=== PATIENT | female | born 1945 | race Caucasian/White ===

== ENCOUNTER 2022-10-11 06:11 | Inpatient (IN) | payer MEDICARE, OTHER, SELFPAY ==
[2022-10-11] VITALS (17 sets, daily range): BP systolic 105–135; BP diastolic 49–82; PULSE 57–71; RESP 14–20; TEMP 36.5–36.8; O2SAT 90–99; BMI 38.3; BMI 37.7
--- NOTE | 2022-10-11 06:42 | CRLHL7_ITS ---
For Patients: As a result of the Century Cures Act, medical imaging exams and procedure reports are released immediately into your electronic medical record. You may view this report before your referring provider. If you have questions, please contact your health care provider. INDICATION: ABD PAIN INDICATION: Abdominal pain. TECHNIQUE: CT abdomen and pelvis acquired with IV contrast. 112 cc of Isovue 370 IV. Coronal/sagittal reconstruction images. COMPARISON: None FINDINGS: Lower chest: Calcified granulomas are present at the lung bases. Liver: Unremarkable. Spleen: Unremarkable. Pancreas: Unremarkable. Gallbladder and bile ducts: Hyperdense material is present within the lumen of the gallbladder, presumably cholelithiasis. No adjacent inflammatory changes. Suggest correlation with right upper quadrant ultrasound. The common bile duct measures up to 9 millimeters. Questionable filling defect within the distal common bile duct on coronal reconstruction images, indeterminate for choledocholithiasis. See image 35, series 4. Kidneys: Unremarkable. Adrenal glands: Unremarkable. GI tract: Unremarkable. Appendix is normal. Vascular structures: Negative. No sign of aneurysm. Lymph nodes: Unremarkable. Miscellaneous: Unremarkable. No free air or significant free fluid. Pelvic Organs: Unremarkable. Bones: Mild compression deformity present at the superior endplate of L4. See image 56, series 5. There is no suspicious bone lesion. IMPRESSION: 1. Presumed cholelithiasis, with no associated inflammatory changes. 2. Mild common bile duct dilation, with a questionable filling defect, indeterminate for a common bile duct stone. 3. Suggest correlation with LFTs and right upper quadrant ultrasound. 4. Normal caliber appendix. Dictated by Salomón Richard MD @ 10/11/2022 7:49:09 AM Please note that all CT scans at this facility use dose modulation, iterative reconstruction, and/or weight-based dosing when appropriate to reduce radiation dose to as low as reasonably achievable. Dictated by: Salomón Richard MD @ 10/11/2022 07:49:31 (Electronically Signed)
[2022-10-11 06:54] LABS: Lactate* 1.8 mmol/L (0.5-1.9)
--- NOTE | 2022-10-11 06:54 | ED_ITS ---
HPI - Abdominal Pain General Chief Complaint: Abdominal Pain <Mikhail Yeboah MD - Last Filed: 10/11/22 07:56> Stated Complaint: Abdominal pain <Mikhail Yeboah MD - Last Filed: 10/11/22 07:56> Time Seen by Provider: 10/11/22 06:20 <Mikhail Yeboah MD - Last Filed: 10/11/22 07:56> History of Present Illness HPI narrative: Pt is a 76 year old woman who awoke this morning 2 hours ago with mid abd pain. Patient has not had abd pain like this in the past. Pain is sharp but does not extend through to the back. She has not had any change in her diet. No nausea or vomiting. No fever or chills. Pain is severe. She is not able to describe and worsening or relieving factors. Pt has no chest pain, sob, diaphoresis or weakness. She has otherwise been in her usual state of health. No treatments prior to arrival. No previous abd surgeries. <Mikhail Yeboah MD - Last Filed: 10/11/22 07:56> Related Data Home Medications: Home Medications Medication Instructions Recorded Confirmed fluoxetine 20 mg capsule 20 mg PO DAILY 10/11/22 10/11/22 hydrochlorothiazide 25 mg tablet 25 mg PO DAILY 10/11/22 10/11/22 losartan 50 mg tablet 50 mg PO BID 10/11/22 10/11/22 metoprolol succinate 100 mg 100 mg PO DAILY 10/11/22 10/11/22 tablet,extended release 24 hr omeprazole 20 mg capsule,delayed 20 mg PO DAILY 10/11/22 10/11/22 release rivaroxaban 20 mg tablet (Xarelto) 20 mg PO DAILY 10/11/22 10/11/22 simvastatin 40 mg tablet 40 mg PO HS 10/11/22 10/11/22 <Mikhail Yeboah MD - Last Filed: 10/11/22 07:56> Allergies/Adverse Reactions: Allergies Allergy/AdvReac Type Severity Reaction Status Date / Time Sulfa (Sulfonamide Allergy Mild Rash Verified 10/11/22 07:44 Antibiotics) <Mikhail Yeboah MD - Last Filed: 10/11/22 07:56> Review of Systems Status of ROS Reports: 10 or more systems reviewed and unremarkable except as noted in History and below <Mikhail Yeboah MD - Last Filed: 10/11/22 07:56> [facility] Medical History: Medical History Acute deep vein thrombosis (DVT) of tibial vein of left lower extremity Cervical spondylolysis Degenerative arthritis of ankle Esophageal reflux Granulomatous lung disease Helicobacter pylori (H. pylori) Hypertension Paroxysmal SVT (supraventricular tachycardia) Venous insufficiency <Mikhail Yeboah MD - Last Filed: 10/11/22 07:56> Surgical History: Surgical History History of neck surgery History of surgery on lower extremity <Mikhail Yeboah MD - Last Filed: 10/11/22 07:56> Social History: Social History Smoking Status: Never smoker Do you use any of these nicotine containing products: None Second hand tobacco smoke exposure: No How often do you have a drink containing alcohol: never How often do you have six or more drinks on one occasion: Never AUDIT-C Alcohol total score: 0 Non-prescribed substance use: denies use <Mikhail Yeboah MD - Last Filed: 10/11/22 07:56> Exam Narrative: Exam Narrative: EXAM GENERAL: Patient appears comfortable and well. EYES: No scleral icterus. ENT: Tympanic membranes and oropharynx normal. THYROID: no thyroid nodules or thyromegaly. LYMPH: No supraclavicular or cervical lymphadenopathy. SKIN: Visible skin seen during exam normal or with benign process only. EXT: No dependent lower extremity pedal edema. HEART: Regular rate and rhythm with no murmurs, rubs, or gallops. LUNGS: Clear to auscultation bilaterally with no crackles or wheezes. ABD: Hypoactive but positive bowel sounds. Minimal pain to palpation in the midabd. No rebound. PSYCH: Good eye contact, speech is not pressured. <Mikhail Yeboah MD - Last Filed: 10/11/22 07:56> Const: Vital Signs, click to edit/add: Vital Signs - 24 hr 10/11/22 06:21 10/11/22 06:44 10/11/22 07:20 Temperature 98.2 F Pulse Rate [Right Pulse Oximeter] 71 67 Respiratory Rate 18 14 Blood Pressure [Ri ght Upper Arm] 128/82 126/67 Pulse Oximetry 99 98 97 Oxygen Delivery Me thod Room Air Room Air <Mikhail Yeboah MD - Last Filed: 10/11/22 07:56> Vital Signs, click to edit/add: Vital Signs - 24 hr 10/11/22 06:21 10/11/22 06:44 10/11/22 07:20 Temperature 98.2 F Pulse Rate [Right Pulse Oximeter] 71 67 Respiratory Rate 18 14 Blood Pressure [Ri ght Upper Arm] 128/82 126/67 Pulse Oximetry 99 98 97 Oxygen Delivery Me thod Room Air Room Air <Doris Verdugo MD - Last Filed: 10/11/22 15:15> Course Course Hospital Course: Pt seen and examined. CT abd and pelvis, cbc, cmp, amylase, lactate urina lysis ordered. <Mikhail Yeboah MD - Last Filed: 10/11/22 07:56> Reevaluation(s) Reevaluation #1: Pt feeling somewhat better. CMP, CBC, Amylase, Lactate reviewed by me are normal. She does have some evidence of possible UTI vs contamination on UA. Urine culture pending. CT of abd and pelvis shows cholelithiasis with mild common bile duct dilation. Radiology recommends Ultrasound of the gallbladder which is ordered at this time. Case signed out to oncoming ED physician at [facility]. <Mikhail Yeboah MD - Last Filed: 10/11/22 07:56> Time: 07:54 <Mikhail Yeboah MD - Last Filed: 10/11/22 07:56> Vital Signs Vital signs: Initial Vital Signs Temperature 98.2 F 10/11/22 06:21 Temperature Source Temporal Artery Scan 10/11/22 06:21 Pulse Rate 71 10/11/22 06:21 Respiratory Rate 18 10/11/22 06:21 Blood Pressure 128/82 10/11/22 06:21 Blood Pressure Mean 97 10/11/22 06:21 Blood Pressure Position Sitting 10/11/22 06:21 Pulse Oximetry 99 10/11/22 06:21 Oxygen Delivery Method 10/11/22 06:21 Vital Signs Temperature 98.2 F 10/11/22 06:21 Pulse Rate 71 10/11/22 06:21 Respiratory Rate 18 10/11/22 06:21 Blood Pressure 128/82 10/11/22 06:21 Pulse Oximetry 99 10/11/22 06:21 Oxygen Delivery Method 10/11/22 06:21 Temperature 98.2 F 10/11/22 06:21 Pulse Rate 67 10/11/22 07:20 Respiratory Rate 14 10/11/22 07:20 Blood Pressure 126/67 10/11/22 07:20 Pulse Oximetry 97 10/11/22 07:20 Oxygen Delivery Method 10/11/22 07:20 <Mikhail Yeboah MD - Last Filed: 10/11/22 07:56> Initial Vital Signs Temperature 98.2 F 10/11/22 06:21 Temperature Source Temporal Artery Scan 10/11/22 06:21 Pulse Rate 71 10/11/22 06:21 Respiratory Rate 18 10/11/22 06:21 Blood Pressure 128/82 10/11/22 06:21 Blood Pressure Mean 97 10/11/22 06:21 Blood Pressure Position Sitting 10/11/22 06:21 Pulse Oximetry 99 10/11/22 06:21 Oxygen Delivery Method 10/11/22 06:21 Vital Signs Temperature 98.2 F 10/11/22 06:21 Pulse Rate 71 10/11/22 06:21 Respiratory Rate 18 10/11/22 06:21 Blood Pressure 128/82 10/11/22 06:21 Pulse Oximetry 99 10/11/22 06:21 Oxygen Delivery Method 10/11/22 06:21 Temperature 98.2 F 10/11/22 06:21 Pulse Rate 67 10/11/22 07:20 Respiratory Rate 14 10/11/22 07:20 Blood Pressure 126/67 10/11/22 07:20 Pulse Oximetry 97 10/11/22 07:20 Oxygen Delivery Method 10/11/22 07:20 <Doris Verdugo MD - Last Filed: 10/11/22 15:15> MDM - Abdominal Pain MDM Narrative Medical decision making narrative: Patient signed out to me by Dr. Yeboah. Patient noted to be feeling somewhat improved at this time. Ultrasound results follows below. Currently awaiting surgical consultation. Laboratory values reassuring with no evidence of elevated liver function tennis white count. 1245: Patient has increasing pain associated with vomiting. No fever at this time. Patient is given Toradol 15 mg IV as well as Zofran 4 mg IV. I do speak with patient and her pain continues will give her 4 mg of IV morphine. Will also give her 1 dose of Zosyn 3.375 g as I suspect that this is cholecystitis in spite of if ultrasound that shows no pericholecystic fluid or thickened gallbladder wall. Note at this time I also learned patient is on Xarelto pancreas is normal where visualized. No peripancreatic fluid collections are seen. Common bile duct measures 10 mm. This is dilated. No common bile duct stone by ultrasound. Normal caliber abdominal aorta. No solid hepatic mass. No dilation of intrahepatic biliary radicals. No perihepatic ascites. Wall echo shadow complex in the gallbladder lumen. This is consistent with a gallbladder full of stones. The patient had a positive sonographic Suero`s sign. Right kidney measures 11.2 cm in length. There is no hydronephrosis, solid mass, or perinephric fluid collection. IMPRESSION: 1. Cholelithiasis, with a wall echo shadow complex. 2. Positive sonographic Suero sign. This raises the suspicion for cholecystitis. 3. The common bile duct is dilated. A common bile duct stone is not seen by ultrasound. 4. Surgical consultation is suggested. MRCP may be obtained to assess the common bile duct further depending on clinical suspicion. Assessment/plan 1. Cholelithiasis-patient noted to have multiple stones in the gallbladder and increased size of common bile duct but with no obvious stone on CT or ultrasound. Patient currently undergoing MRCP. Surgery has been consult it at this point. 2. Suspected cholecystitis--patient has reassuring white count and LFTs but certainly is tender in the right upper quadrant and is having colic like pain. Upon my arrival she had no discomfort but then had pain with vomiting. Toradol 15 mg IV and morphine 4 mg IV plus Zofran 4 mg IV was given and patient has no pain at this time. 3. Anticoagulated-on Xarelto for history of DVT. Last does 10/10/2022 in the morning. 4. Disposition-if MRCP is positive will need to find outside facility for transfer. If negative surgical consultation with guidance on inpatient admission with antibiotics or discharge home. Will speak to hospitalist at this time as well. <Doris Verdugo MD - Last Filed: 10/11/22 15:15> Medical Records Attestation: I reviewed the patient's medical records. <Doris Verdugo MD - Last Filed: 10/11/22 15:15> Lab Data Attestation: I reviewed the patient's lab results. <Doris Verdugo MD - Last Filed: 10/11/22 15:15> Labs: Lab Results 10/11/22 10/11/22 10/11/22 Range/Units 06:42 06:42 06:43 WBC 8.79 (4.50-11.00) K/uL RBC 4.11 (4.00-5.20) m/uL Hgb 12.6 (12.0-16.0) gm/dL Hct 38.6 (33.0-51.0) % MCV 94 (80-100) fL MCH 31 (26-34) pg MCHC 33 (32-36) gm/dL RDW Coeff of La 12.3 (11.5-15.5) % Plt Count 340 (140-440) K/uL Neut % (Auto) 71.7 (42.0-72.0) % Lymph % (Auto) 19.5 L (20-44) % [place] % (Auto) 5.8 (0.0-11.0) % Eos % (Auto) 1.6 (0.0-7.0) % Baso % (Auto) 0.6 (0.0-3.0) % Neut # (Auto) 6.31 (1.7-7.0) K/uL Lymph # (Auto) 1.70 (0.90-2.90) K/uL Marathon # (Auto) 0.50 (0.00-0.90) K/UL Eos # (Auto) 0.14 (0.00-0.50) K/uL Baso # (Auto) 0.05 (0.00-0.30) K/uL Sodium (135-149) mmol/L Potassium (3.6-5.1) mmol/L Chloride (96-114) mmol/L Carbon Dioxide (20-32) mmol/L BUN (7-30) mg/dL Creatinine (0.5-1.5) mg/dL Estimated Creat Clear Estimated GFR ml/min Glucose (60-115) mg/dL Lactate 1.8 (0.5-1.9) mmol/L Calcium (8.4-10.6) mg/dL Total Bilirubin (0.1-1.5) mg/dL AST (12-35) U/L ALT (4-35) U/L Alkaline Phosphatase (40-150) U/L Total Protein (6.0-8.3) g/dL Albumin (3.3-5.0) g/dL Amylase (18-89) U/L Urine Color Yellow (Yellow) Urine Appearance Clear (Clear) Urine pH 6.0 (5.0-8.5) Ur Specific [place] 1.025 (1.000-1.030) Urine Protein Negative (Negative) Urine Glucose (UA) Negative (Negative) Urine Ketones Negative (Negative) Urine Blood Negative (Negative) Urine Nitrite Negative (Negative) Urine Bilirubin Negative (Negative) Urine Urobilinogen 2.0 A (0.2-1.0) Ur Leukocyte Esterase 1+ A (Negative) Urine RBC 0-2 (0-2) Urine WBC 10-25 A (0-5) Ur Squamous Epith Cells Few (None-Few) Urine Bacteria Few A (None) SARS-CoV-2 (PCR) (Negative) 10/11/22 10/11/22 10/11/22 Range/Units 06:43 06:50 09:10 WBC (4.50-11.00) K/uL RBC (4.00-5.20) m/uL Hgb (12.0-16.0) gm/dL Hct (33.0-51.0) % MCV (80-100) fL MCH (26-34) pg MCHC (32-36) gm/dL RDW Coeff of La (11.5-15.5) % Plt Count (140-440) K/uL Neut % (Auto) (42.0-72.0) % Lymph % (Auto) (20-44) % Marathon % (Auto) (0.0-11.0) % Eos % (Auto) (0.0-7.0) % Baso % (Auto) (0.0-3.0) % Neut # (Auto) (1.7-7.0) K/uL Lymph # (Auto) (0.90-2.90) K/uL Marathon # (Auto) (0.00-0.90) K/UL Eos # (Auto) (0.00-0.50) K/uL Baso # (Auto) (0.00-0.30) K/uL Sodium 141 (135-149) mmol/L Potassium 3.7 (3.6-5.1) mmol/L Chloride 106 (96-114) mmol/L Carbon Dioxide 25 (20-32) mmol/L BUN 22 (7-30) mg/dL Creatinine 0.7 (0.5-1.5) mg/dL Estimated Creat Clear 42.39 Estimated GFR 89 ml/min Glucose 107 (60-115) mg/dL Lactate (0.5-1.9) mmol/L Calcium 9.0 (8.4-10.6) mg/dL Total Bilirubin 0.6 (0.1-1.5) mg/dL AST 31 (12-35) U/L ALT 20 (4-35) U/L Alkaline Phosphatase 124 (40-150) U/L Total Protein 7.4 (6.0-8.3) g/dL Albumin 4.2 (3.3-5.0) g/dL Amylase 45 (18-89) U/L Urine Color (Yellow) Urine Appearance (Clear) Urine pH (5.0-8.5) Ur Specific [place] (1.000-1.030) Urine Protein (Negative) Urine Glucose (UA) (Negative) Urine Ketones (Negative) Urine Blood (Negative) Urine Nitrite (Negative) Urine Bilirubin (Negative) Urine Urobilinogen (0.2-1.0) Ur Leukocyte Esterase (Negative) Urine RBC (0-2) Urine WBC (0-5) Ur Squamous Epith Cells (None-Few) Urine Bacteria (None) SARS-CoV-2 (PCR) Negative SARS-CoV-2 (Negative) <Mikhail Yeboah MD - Last Filed: 10/11/22 07:56> Lab Results 10/11/22 10/11/22 10/11/22 Range/Units 06:42 06:42 06:43 WBC 8.79 (4.50-11.00) K/uL RBC 4.11 (4.00-5.20) m/uL Hgb 12.6 (12.0-16.0) gm/dL Hct 38.6 (33.0-51.0) % MCV 94 (80-100) fL MCH 31 (26-34) pg MCHC 33 (32-36) gm/dL RDW Coeff of La 12.3 (11.5-15.5) % Plt Count 340 (140-440) K/uL Neut % (Auto) 71.7 (42.0-72.0) % Lymph % (Auto) 19.5 L (20-44) % Marathon % (Auto) 5.8 (0.0-11.0) % Eos % (Auto) 1.6 (0.0-7.0) % Baso % (Auto) 0.6 (0.0-3.0) % Neut # (Auto) 6.31 (1.7-7.0) K/uL Lymph # (Auto) 1.70 (0.90-2.90) K/uL Marathon # (Auto) 0.50 (0.00-0.90) K/UL Eos # (Auto) 0.14 (0.00-0.50) K/uL Baso # (Auto) 0.05 (0.00-0.30) K/uL Sodium (135-149) mmol/L Potassium (3.6-5.1) mmol/L Chloride (96-114) mmol/L Carbon Dioxide (20-32) mmol/L BUN (7-30) mg/dL Creatinine (0.5-1.5) mg/dL Estimated Creat Clear Estimated GFR ml/min Glucose (60-115) mg/dL Lactate 1.8 (0.5-1.9) mmol/L Calcium (8.4-10.6) mg/dL Total Bilirubin (0.1-1.5) mg/dL AST (12-35) U/L ALT (4-35) U/L Alkaline Phosphatase (40-150) U/L Total Protein (6.0-8.3) g/dL Albumin (3.3-5.0) g/dL Amylase (18-89) U/L Urine Color Yellow (Yellow) Urine Appearance Clear (Clear) Urine pH 6.0 (5.0-8.5) Ur Specific [place]iman 1.025 (1.000-1.030) Urine Protein Negative (Negative) Urine Glucose (UA) Negative (Negative) Urine Ketones Negative (Negative) Urine Blood Negative (Negative) Urine Nitrite Negative (Negative) Urine Bilirubin Negative (Negative) Urine Urobilinogen 2.0 A (0.2-1.0) Ur Leukocyte Esterase 1+ A (Negative) Urine RBC 0-2 (0-2) Urine WBC 10-25 A (0-5) Ur Squamous Epith Cells Few (None-Few) Urine Bacteria Few A (None) SARS-CoV-2 (PCR) (Negative) 10/11/22 10/11/22 10/11/22 Range/Units 06:43 06:50 09:10 WBC (4.50-11.00) K/uL RBC (4.00-5.20) m/uL Hgb (12.0-16.0) gm/dL Hct (33.0-51.0) % MCV (80-100) fL MCH (26-34) pg MCHC (32-36) gm/dL RDW Coeff of La (11.5-15.5) % Plt Count (140-440) K/uL Neut % (Auto) (42.0-72.0) % Lymph % (Auto) (20-44) % Marathon % (Auto) (0.0-11.0) % Eos % (Auto) (0.0-7.0) % Baso % (Auto) (0.0-3.0) % Neut # (Auto) (1.7-7.0) K/uL Lymph # (Auto) (0.90-2.90) K/uL Marathon # (Auto) (0.00-0.90) K/UL Eos # (Auto) (0.00-0.50) K/uL Baso # (Auto) (0.00-0.30) K/uL Sodium 141 (135-149) mmol/L Potassium 3.7 (3.6-5.1) mmol/L Chloride 106 (96-114) mmol/L Carbon Dioxide 25 (20-32) mmol/L BUN 22 (7-30) mg/dL Creatinine 0.7 (0.5-1.5) mg/dL Estimated Creat Clear 42.39 Estimated GFR 89 ml/min Glucose 107 (60-115) mg/dL Lactate (0.5-1.9) mmol/L Calcium 9.0 (8.4-10.6) mg/dL Total Bilirubin 0.6 (0.1-1.5) mg/dL AST 31 (12-35) U/L ALT 20 (4-35) U/L Alkaline Phosphatase 124 (40-150) U/L Total Protein 7.4 (6.0-8.3) g/dL Albumin 4.2 (3.3-5.0) g/dL Amylase 45 (18-89) U/L Urine Color (Yellow) Urine Appearance (Clear) Urine pH (5.0-8.5) Ur Specific [place] (1.000-1.030) Urine Protein (Negative) Urine Glucose (UA) (Negative) Urine Ketones (Negative) Urine Blood (Negative) Urine Nitrite (Negative) Urine Bilirubin (Negative) Urine Urobilinogen (0.2-1.0) Ur Leukocyte Esterase (Negative) Urine RBC (0-2) Urine WBC (0-5) Ur Squamous Epith Cells (None-Few) Urine Bacteria (None) SARS-CoV-2 (PCR) Negative SARS-CoV-2 (Negative) <Doris Verdugo MD - Last Filed: 10/11/22 15:15> Discharge Plan Discharge Clinical Impression: Acute UTI, Cholelithiasis <Mikhail Yeboah MD - Last Filed: 10/11/22 07:56> Prescriptions: No Action fluoxetine 20 mg capsule 20 mg PO DAILY Label Comments: TAKE 1 CAPSULE BY MOUTH IN THE MORNING hydrochlorothiazide 25 mg tablet 25 mg PO DAILY Label Comments: TAKE 1 TABLET BY MOUTH ONCE DAILY losartan 50 mg tablet 50 mg PO BID Label Comments: TAKE 1 TABLET BY MOUTH TWICE DAILY metoprolol succinate 100 mg tablet extended release 24 hr 100 mg PO DAILY Label Comments: TAKE 1 TABLET BY MOUTH ONCE DAILY omeprazole 20 mg capsule,delayed release(DR/EC) 20 mg PO DAILY Label Comments: TAKE 1 CAPSULE BY MOUTH ONCE DAILY BEFORE A MEAL simvastatin 40 mg tablet 40 mg PO HS Label Comments: TAKE 1 TABLET BY MOUTH AT BEDTIME Xarelto 20 mg tablet 20 mg PO DAILY Rx Instructions: must administer with evening meal <Mikhail Yeboah MD - Last Filed: 10/11/22 07:56> Follow Up/Referrals: Yanni Headley MD [Primary Care Provider] - <Mikhail Yeboah MD - Last Filed: 10/11/22 07:56>
[2022-10-11 06:56] LABS: Basophils Absolute Auto 0.05 K/uL (0.00-0.30); Basophils Percent Auto 0.6 % (0.0-3.0); Eosinophils Absolute Auto 0.14 K/uL (0.00-0.50); Eosinophils Percent Auto 1.6 % (0.0-7.0); Hematocrit 38.6 % (33.0-51.0); Hemoglobin* 12.6 gm/dL (12.0-16.0); Immature Granulocytes Abs Auto 0.07 K/uL (0.00-0.30); Immature Granulocytes Pct Auto 0.8 %; Lymphocytes Percent Auto 19.5 % (20-44); Mean Corpuscular HGB Conc 33 gm/dL (32-36); Mean Corpuscular Hemoglobin 31 pg (26-34); Mean Corpuscular Volume 94 fL (80-100); Monocytes Percent Auto 5.8 % (0.0-11.0); Neutrophils Absolute Auto 6.31 K/uL (1.7-7.0); Neutrophils Percent Auto 71.7 % (42.0-72.0); Platelet Count* 340 K/uL (140-440); RDW Coefficient of Variation % 12.3 % (11.5-15.5); Red Blood Count 4.11 m/uL (4.00-5.20); White Blood Count* 8.79 K/uL (4.50-11.00)
--- NOTE | 2022-10-11 07:03 | ED.NURSE ---
Report received from ESTRELLA Kerns.
[2022-10-11 07:04] LABS: Slide Review Reflex No
[2022-10-11 07:11] LABS: Appearance Urine Clear (Clear); Bilirubin Urine Negative (Negative); Blood Urine Negative (Negative); Color Urine Yellow (Yellow); Glucose Urine Negative (Negative); Ketones Urine Negative (Negative); Leukocyte Esterase Urine 1+ (Negative); Nitrite Urine Negative (Negative); Protein Urine Negative (Negative); Specific Gravity Urine 1.025 (1.000-1.030)
[2022-10-11 07:13] LABS: RBC Urine 0-2 (0-2)
[2022-10-11 07:13] LABS: Chloride* 106 mmol/L (96-114)
[2022-10-11 07:14] LABS: Bacteria Urine Few; Squamous Epithelial Cell Urine Few (None-Few)
[2022-10-11 07:14] LABS: Albumin* 4.2 g/dL (3.3-5.0); Potassium* 3.7 mmol/L (3.6-5.1); Sodium* 141 mmol/L (135-149)
[2022-10-11 07:17] LABS: Alanine Aminotransferase* 20 U/L (4-35); Alkaline Phosphatase* 124 U/L (40-150); Aspartate Amino Transferase* 31 U/L (12-35); Bilirubin Total* 0.6 mg/dL (0.1-1.5); Blood Urea Nitrogen* 22 mg/dL (7-30); Carbon Dioxide* 25 mmol/L (20-32); Creatinine* 0.7 mg/dL (0.5-1.5); Est. Creatinine Clearance* 42.39; Estimated Glomerular Filt Rate 89 ml/min; Glucose* 107 mg/dL (60-115); Total Protein* 7.4 g/dL (6.0-8.3)
[2022-10-11 07:29] LABS: Amylase* 45 U/L (18-89)
--- NOTE | 2022-10-11 07:57 | CRLHL7_ITS ---
For Patients: As a result of the Century Cures Act, medical imaging exams and procedure reports are released immediately into your electronic medical record. You may view this report before your referring provider. If you have questions, please contact your health care provider. INDICATION: ABD PAIN, ABNORMAL FINDINGS ON CTIMAGES: 49PREVIOUS:CT ABD/PELVIS IMAGES: 439 HISTORY: Abnormal CT scan. Suspected cholelithiasis. COMPARISON: CT of the abdomen and pelvis, 10/11/2022. TECHNIQUE: Ultrasound of the abdomen limited. FINDINGS: The pancreas is normal where visualized. No peripancreatic fluid collections are seen. Common bile duct measures 10 mm. This is dilated. No common bile duct stone by ultrasound. Normal caliber abdominal aorta. No solid hepatic mass. No dilation of intrahepatic biliary radicals. No perihepatic ascites. Wall echo shadow complex in the gallbladder lumen. This is consistent with a gallbladder full of stones. The patient had a positive sonographic Suero`s sign. Right kidney measures 11.2 cm in length. There is no hydronephrosis, solid mass, or perinephric fluid collection. IMPRESSION: 1. Cholelithiasis, with a wall echo shadow complex. 2. Positive sonographic Suero sign. This raises the suspicion for cholecystitis. 3. The common bile duct is dilated. A common bile duct stone is not seen by ultrasound. 4. Surgical consultation is suggested. MRCP may be obtained to assess the common bile duct further depending on clinical suspicion. Dictated by Salomón Richard MD @ 10/11/2022 9:36:08 AM Dictated by: Salomón Richard MD @ 10/11/2022 09:36:17 (Electronically Signed)
[2022-10-11 10:11] LABS: SARS PCR* Negative SARS-CoV-2 (Negative)
--- NOTE | 2022-10-11 11:36 | ED.NURSE ---
Pt up to BR independently, tolerates well. Pt updated on delay with surgeon. Call light within reach, all needs met at this time.
[2022-10-11] MEDS: KETOROLAC 15 MG/ML inj IVP (12:40)
[2022-10-11] MEDS: ONDANSETRON 2 MG/ML inj 4 MG IVP (13:05)
[2022-10-11] MEDS: MORPHINE 4 MG/ML INJ IVP ×2 (13:07→20:25)
--- NOTE | 2022-10-11 14:08 | CRLHL7_ITS ---
For Patients: As a result of the Century Cures Act, medical imaging exams and procedure reports are released immediately into your electronic medical record. You may view this report before your referring provider. If you have questions, please contact your health care provider. INDICATION: Cholelithiasis. Enlarged common bile duct. TECHNIQUE: An MRCP, including 2D, 3D and maximum intensity projection imaging, was performed. COMPARISON: Abdomen ultrasound and abdomen/pelvis CT performed earlier today. FINDINGS: The common bile duct is smoothly marginated and measures up to 10 mm in diameter. There is no obvious ductal stone. The intrahepatic ducts are normal in caliber and appear to branch and taper in a grossly normal fashion. Multiple stones are present in the gallbladder, including a stone measuring up to 3 cm in maximum diameter. The pancreatic duct is normal. Mild fatty change is noted in the liver. The liver is normal in size and shape. The spleen, pancreas, adrenal glands and kidneys are within normal limits. No bowel abnormality, lymphadenopathy or free fluid is demonstrated. IMPRESSION: 1. Cholelithiasis but no convincing evidence of choledocholithiasis, despite the common duct measured up to 10 mm in diameter. 2. Mild fatty change in the liver. Dictated by Nilo Ulloa MD @ 10/11/2022 4:15:31 PM (Electronically Signed)
[2022-10-11] MEDS: PIPERACILLIN/TAZOBACTAM 3.375 GM in 0.9 % SODIUM CHLORIDE Mini-bag 100 ML IVPB (14:21)
[2022-10-11 16:14] LABS: Lipase* 112 U/L (23-300)
--- NOTE | 2022-10-11 18:10 | ED.NURSE ---
Report given to ESTRELLA Villagomez.
--- NOTE | 2022-10-11 19:06 | P.IMHP_ITS ---
Hospitalist- H&P: HPI History of Present Illness Date Seen: 10/11/22 Chief complaint: Abdominal pain Narrative: ADMISSION HISTORY AND PHYSICAL - HOSPITALIST Chief Complaint: Acute Abdominal Pain HPI: 76-year-old with a history of hypertension, recurrent DVT, depression presents with acute onset of significant abdominal pain. She stated she woke up this morning feeling normal. She had a normal day the day before, had a normal evening meal. Soon after getting up she started to have a nose bleed. She recently started Xarelto after her 3rd lifetime DVT. She was able to sit in her recliner to get the bleeding stopped. About the same time she had the acute onset of boring abdominal pain in her mid epigastric region. It radiated into her back. She felt sweaty. She could not get on top of the pain. She felt nauseated. She called her son and he brought her to the emergency room. In the ED -normal vitals and labs -pain returned as did nausea and vomiting. Given Zofran morphine -imaging was concerning for a dilated common bile duct, 10 mm. MRCP was recommended. -MRCP showed dilated duct without stone -general surgery advised admission, hold Xarelto, planned for laparoscopic cholecystectomy I've updated the PFSH, medications and allergies in the [facility] tabs. INVESTIGATIONS: LABS/MICRO/ECG/IMAGING AFEBRILE SINCE ARRIVAL BP NORMAL PULSE NORMAL PULSE OX ON ROOM AIR LOW 90'S 104KG CBC is unremarkable. Complete metabolic panel, lipase all normal UA shows 1+ leukocyte esterase, few bacteria, some white blood cells. URINE CULTURE PENDING MRCP TODAY PRIOR TO ADMISSION 1. Cholelithiasis but no convincing evidence of choledocholithiasis, despite the common duct measured up to 10 mm in diameter. 2. Mild fatty change in the liver. REVIEW OF SYSTEMS: 12-point ROS completed with patient and negative unless otherwise stated in HPI or below. PHYSICAL EXAM: CODE STATUS: Full code CONSTITUTIONAL: Conversive, good historian. A/O. Knows setting and context. VITAL SIGNS: see record. HEENT: Normocephalic, atraumatic. PERRL, EOMI, conjunctivae pink, no scleral icterus. Ears and nose externally normal. Pharynx normal. NECK: No JVD. No carotid bruit, no thyromegaly, no adenopathy. CHEST: Clear to auscultation bilaterally HEART: S1 and S2 normal. No harsh murmurs. Edema 1+ ABDOMEN: OBESE. TENDER THROUGHOUT HER UPPER ABDOMEN. NO REBOUND. GOOD BOWEL SOUNDS. MUSCULOSKELETAL: No gross joint deformity or swelling. NEURO: Cranial nerves intact. Grossly intact. No asymmetric findings. SKIN: No rashes, petechiae, concerning changes PSYCHIATRIC: Euthymic. ADMIT TO MEDSURG: FLOOR CARE DVT: Lovenox GI: PPI, CLEARS Time spent: 70 minutes examining patient, conferring with family and patient, care staff, developing care plan [facility] Medical History (Updated 10/11/22 @ 21:55 by Ibeth Ho MD) Bereavement, uncomplicated Cervical spondylolysis Chronic anticoagulation Degenerative arthritis of ankle Dyslipidemia Esophageal reflux Granulomatous lung disease Hypertension Morbid obesity Paroxysmal SVT (supraventricular tachycardia) Recurrent deep vein thrombosis (DVT) Venous insufficiency Surgical History (Updated 10/11/22 @ 21:53 by Ibeth Ho MD) H/O lumbar discectomy History of neck surgery Status post open reduction with internal fixation (ORIF) of fracture of ankle Social History (Updated 10/11/22 @ 21:54 by Ibeth Ho MD) Narrative: 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 Three adult children. Lives alone. Nonsmoker. Nondrinker. Highest level of school completed/degree received: high school graduate Smoking Status: Never smoker Do you use any of these nicotine containing products: None Second hand tobacco smoke exposure: No How often do you have a drink containing alcohol: monthly or less Alcohol type: beer, wine and hard liquor How many standard drinks containing alcohol do you have on a typical day: 1 or 2 How often do you have six or more drinks on one occasion: Never AUDIT-C Alcohol total score: 1 Non-prescribed substance use: denies use Caffeine: Yes (coffee, 2 cups) service: No Meds Home Medications and Allergies Home Medications Medication Instructions Recorded Confirmed Type fluoxetine 20 mg capsule 20 mg PO DAILY 10/11/22 10/11/22 History hydrochlorothiazide 25 mg tablet 25 mg PO DAILY 10/11/22 10/11/22 History losartan 50 mg tablet 50 mg PO BID 10/11/22 10/11/22 History metoprolol succinate 100 mg 100 mg PO DAILY 10/11/22 10/11/22 History tablet,extended release 24 hr omeprazole 20 mg capsule,delayed 20 mg PO DAILY 10/11/22 10/11/22 History release rivaroxaban 20 mg tablet (Xarelto) 20 mg PO DAILY 10/11/22 10/11/22 History simvastatin 40 mg tablet 40 mg PO HS 10/11/22 10/11/22 History Allergies Allergy/AdvReac Type Severity Reaction Status Date / Time Sulfa (Sulfonamide Allergy Mild Rash Verified 10/11/22 07:44 Antibiotics) Exam Const: Vital Signs, click to edit/add: Vital Signs - 24 hr 10/11/22 06:21 10/11/22 06:44 10/11/22 07:20 Temperature 98.2 F Pulse Rate Pulse Rate [Left P ulse Oximeter] Pulse Rate [Right Pulse Oximeter] 71 67 Respiratory Rate 18 14 Blood Pressure Blood Pressure [Le ft Arm] Blood Pressure [Ri ght Upper Arm] 128/82 126/67 Pulse Oximetry 99 98 97 [facility] Room Air 10/11/22 10:00 10/11/22 15:41 10/11/22 16:00 Temperature Pulse Rate 68 62 Pulse Rate [Left P ulse Oximeter] Pulse Rate [Right Pulse Oximeter] 69 Respiratory Rate 16 Blood Pressure 129/72 Blood Pressure [Le ft Arm] Blood Pressure [Ri ght Upper Arm] 119/77 Pulse Oximetry 94 95 92 [facility] 10/11/22 16:30 10/11/22 16:50 10/11/22 12:00 Temperature Pulse Rate 63 65 Pulse Rate [Left P ulse Oximeter] Pulse Rate [Right Pulse Oximeter] Respiratory Rate Blood Pressure 105/52 L Blood Pressure [Le ft Arm] Blood Pressure [Ri ght Upper Arm] 118/77 Pulse Oximetry 90 91 95 [facility] 10/11/22 16:51 10/11/22 17:01 10/11/22 17:31 Temperature Pulse Rate 62 58 L 57 L Pulse Rate [Left P ulse Oximeter] Pulse Rate [Right Pulse Oximeter] Respiratory Rate Blood Pressure 114/49 L 129/65 Blood Pressure [Le ft Arm] Blood Pressure [Ri ght Upper Arm] Pulse Oximetry 91 90 91 [facility] 10/11/22 18:01 10/11/22 18:43 Temperature 97.7 F Pulse Rate 61 Pulse Rate [Left P ulse Oximeter] 61 Pulse Rate [Right Pulse Oximeter] Respiratory Rate 18 Blood Pressure 135/68 Blood Pressure [Le ft Arm] 127/62 Blood Pressure [Ri ght Upper Arm] Pulse Oximetry 92 97 Oxygen Delivery Me thod Room Air Hospitalist - H&P: Result Labs Labs: Short CBC 10/11/22 Range/Units 06:42 WBC 8.79 (4.50-11.00) K/uL Hgb 12.6 (12.0-16.0) gm/dL Hct 38.6 (33.0-51.0) % Plt Count 340 (140-440) K/uL BMP 10/11/22 06:50 Sodium 141 Potassium 3.7 Chloride 106 Carbon Dioxide 25 BUN 22 Creatinine 0.7 Glucose 107 Calcium 9.0 Liver Function 10/11/22 Range/Units 06:50 Total Bilirubin 0.6 (0.1-1.5) mg/dL AST 31 (12-35) U/L ALT 20 (4-35) U/L Alkaline Phosphatase 124 (40-150) U/L Albumin 4.2 (3.3-5.0) g/dL Urine 10/11/22 Range/Units 06:42 Urine Color Yellow (Yellow) Urine Appearance Clear (Clear) Urine pH 6.0 (5.0-8.5) Ur Specific [place] 1.025 (1.000-1.030) Urine Protein Negative (Negative) Urine Glucose (UA) Negative (Negative) Assessment and Plan Assessment and plan (1) Cholelithiasis: Problem comment: MRCP, 10/11/2022. Dilated common bile duct. No evidence of choledocholithiasis. General surgery is planning a laparoscopic cholecystectomy on 10/13. No antibiotics planned. Status post 1 dose of Zosyn in the ED. covering with Lovenox and holding Xarelto. Status: Acute (2) Chronic anticoagulation: Problem comment: Xarelto for chronic DVT. Last dose was the morning of 10/10. Covering with Lovenox. Status: Acute (3) Recurrent deep vein thrombosis (DVT): Problem comment: Three lifetime DVTs. Last was August of 2022. Recommended lifetime Xarelto. Status: Acute (4) Hypertension: Problem comment: 3 med regimen: HCTZ, Losartan, Toprol xl Status: Acute (5) Morbid obesity: Status: Acute (6) Bereavement, uncomplicated: Problem comment: just in 09/09. On prozac. Status: Acute
[2022-10-11] MEDS: 5 % DEX/0.45 SOD CHL+KCL20 mEq 1,000 ML 100 ML IV (20:29)
[2022-10-11] MEDS: LOSARTAN POTASSIUM 50 MG TABLET PO (20:34)
[2022-10-11] MEDS: PANTOPRAZOLE SODIUM 40 MG INJ IVP (20:34)
[2022-10-11] MEDS: ENOXAPARIN 40 MG/0.4 ML INJ SUBCUT (20:34)
[2022-10-11] MEDS: SIMVASTATIN 40 MG TABLET PO (20:35)
--- NOTE | 2022-10-11 23:56 | PC.NURSE ---
Nursing Care Hours: [id number] Pt this shift arrived from ED. No c/o pain upon arrival but, after drinking fluids and eating half a jello, sharp pain returned in upper epigastric region. Advised to take fluids slowly to avoid irritation. Morphine given per eMAR. Orthostatic blood pressures done per hospitalist order, pt expressed feeling light headed like I am going to faint at the end of getting a standing pressure. Hospitalist notified. IV fluids running. L AC was triggering high pressure even with interventions. New IV placed in R hand. TEDs bilat on, SB assist to bathroom. O2 saturation dropping to 85% while trying to fall asleep. No known history of sleep apnea per pt. 0.5L NC keeping saturations above 90%.
[2022-10-12] MEDS: MELATONIN 3 MG TABLET PO ×2 (00:05→23:39)
[2022-10-12 03:00] VITALS: BP 126/62; PULSE 68; RESP 18; TEMP 36.6; O2SAT 95
[2022-10-12] MEDS: 5 % DEX/0.45 SOD CHL+KCL20 mEq 1,000 ML 100 ML IV ×2 (06:54→23:40)
[2022-10-12] MEDS: OMEPRAZOLE 20 MG CAPSULE DR 40 MG PO (06:54)
[2022-10-12 07:00] VITALS: BP 132/67; PULSE 79; PULSE 82; RESP 18; TEMP 36.9; O2SAT 94
[2022-10-12 07:21] LABS: HCO3 VBG 25 mmol/L (21-28); PCO2 VBG 35 mmHG (40-50); PO2 VBG 65.7 mmHG (25-47); pH VBG 7.459 (7.32-7.43)
[2022-10-12 07:28] LABS: Hematocrit 36.8 % (33.0-51.0); Hemoglobin* 11.7 gm/dL (12.0-16.0); Mean Corpuscular HGB Conc 32 gm/dL (32-36); Mean Corpuscular Hemoglobin 30 pg (26-34); Mean Corpuscular Volume 96 fL (80-100); Platelet Count* 252 K/uL (140-440); Red Blood Count 3.85 m/uL (4.00-5.20); White Blood Count* 7.76 K/uL (4.50-11.00)
--- NOTE | 2022-10-12 07:30 | PC.NURSE ---
[id number]: Patient pleasant and cooperative. Rates pain 0-2/10 declining pain medication. Denies N/V. SBA. BS active and passing gas. Tolerating clears. 0.5 Lt NC overnight to maintain sats >90.
[2022-10-12 07:32] LABS: Slide Review Reflex No
[2022-10-12 07:41] LABS: Chloride* 108 mmol/L (96-114); Sodium* 138 mmol/L (135-149)
[2022-10-12 07:42] LABS: Potassium* 4.2 mmol/L (3.6-5.1)
[2022-10-12 07:43] LABS: Creatinine* 0.5 mg/dL (0.5-1.5); Est. Creatinine Clearance* 42.39; Estimated Glomerular Filt Rate 97 ml/min
[2022-10-12 07:44] LABS: Alkaline Phosphatase* 120 U/L (40-150); Aspartate Amino Transferase* 46 U/L (12-35); Carbon Dioxide* 22 mmol/L (20-32); Lipase* 71 U/L (23-300)
[2022-10-12 07:45] LABS: Alanine Aminotransferase* 29 U/L (4-35); Blood Urea Nitrogen* 19 mg/dL (7-30); Calcium* 8.5 mg/dL (8.4-10.6); Glucose* 118 mg/dL (60-115); Magnesium* 1.8 mg/dL (1.5-2.6)
--- NOTE | 2022-10-12 11:31 | P.GSCN_ITS ---
History of Present Illness Consult details Date Seen: 10/12/22 Consult date: 10/12/22 Narrative: 76-year-old female was admitted to the hospital with epigastric abdominal pain and I was asked by Dr. Gee to see him in consultation. Patient states that she woke up at 4 in the morning with bloody nose. And after her nose stopped bleeding, she noticed severe epigastric abdominal pain. The pain was described as sharp and persistent. When the pain was severe, it radiated to her back. Patient had not had anything like this before. She had episodes of left upper quadrant pain that was not as severe in the past. The etiology of that pain has never been discovered. Patient had nausea and dry heaving. Currently her pain is controlled with pain medication but is still present. Patient denies drinking alcohol. She occasionally takes ibuprofen for back issues, and on average takes it twice a week. Patient has a history of acid reflux and takes omeprazole daily. She has been taking that for ?awhile?. I reviewed patient's laboratory and imaging findings. Her WBC was normal at 8.7. Her liver function tests were normal. Her hemoglobin was 12.6. An abdominal CT was obtained that showed cholelithiasis with no significant inflammation surrounding the gallbladder. There was dilation of the common bile duct. An abdominal ultrasound was then obtained that showed cholelithiasis. The gallbladder wall was just below 3 mm thick and there was no pericholecystic fluid. Patient's common bile duct was measured at 10 mm in the largest dimension. Patient then underwent an MRCP that confirmed presence of stones in the gallbladder and showed dilated common bile duct with no filling defects or stones. Review of Systems Narrative: General: no fevers HENT: no problems swallowing CV: no shortness of breath Resp: no cough GI: See above Skin: no new rashes Musculoskeletal: Patient does have history of chronic back pain and takes ibuprofen for it. Neuro: no muscle weakness PFSH PFS Medical History (Updated 10/11/22 @ 21:55 by Ibeth Ho MD) Bereavement, uncomplicated Cervical spondylolysis Chronic anticoagulation Degenerative arthritis of ankle Dyslipidemia Esophageal reflux Granulomatous lung disease Hypertension Morbid obesity Paroxysmal SVT (supraventricular tachycardia) Recurrent deep vein thrombosis (DVT) Venous insufficiency Surgical History (Updated 10/12/22 @ 11:37 by Paulina Queen MD) H/O lumbar discectomy H/O: hysterectomy History of neck surgery Status post open reduction with internal fixation (ORIF) of fracture of ankle Social History (Updated 10/11/22 @ 21:54 by Ibeth Ho MD) Narrative: 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 Three adult children. Lives alone. Nonsmoker. Nondrinker. Highest level of school completed/degree received: high school graduate Smoking Status: Never smoker Do you use any of these nicotine containing products: None Second hand tobacco smoke exposure: No How often do you have a drink containing alcohol: monthly or less Alcohol type: beer, wine and hard liquor How many standard drinks containing alcohol do you have on a typical day: 1 or 2 How often do you have six or more drinks on one occasion: Never AUDIT-C Alcohol total score: 1 Non-prescribed substance use: denies use Caffeine: Yes (coffee, 2 cups) service: No Meds Home Medications and Allergies Home Medications Medication Instructions Recorded Confirmed Type fluoxetine 20 mg capsule 20 mg PO DAILY 10/11/22 10/11/22 History hydrochlorothiazide 25 mg tablet 25 mg PO DAILY 10/11/22 10/11/22 History losartan 50 mg tablet 50 mg PO BID 10/11/22 10/11/22 History metoprolol succinate 100 mg 100 mg PO DAILY 10/11/22 10/11/22 History tablet,extended release 24 hr omeprazole 20 mg capsule,delayed 20 mg PO DAILY 10/11/22 10/11/22 History release rivaroxaban 20 mg tablet (Xarelto) 20 mg PO DAILY 10/11/22 10/11/22 History simvastatin 40 mg tablet 40 mg PO HS 10/11/22 10/11/22 History Allergies Allergy/AdvReac Type Severity Reaction Status Date / Time Sulfa (Sulfonamide Allergy Mild Rash Verified 10/11/22 07:44 Antibiotics) Exam Narrative: Exam Narrative: General appearance: Alert, cooperative, and in no distress Pulmonary: Chest symmetric, lungs clear bilaterally Cardiovascular Heart: Regular rate and rhythm, S1, S2, no murmurs/rubs/gallops Gastrointestinal Abdominal: soft, not distended, tender to palpation in epigastrium and mid right abdomen. Negative Suero sign. Patient also has a small umbilical hernia. Skin: Normal skin color, texture, and turgor. No rashes or lesions. Psychiatric: Alert, cooperative, normal affect. Const: Vital Signs, click to edit/add: Vital Signs - 24 hr 10/11/22 15:41 10/11/22 16:00 10/11/22 16:30 Temperature Pulse Rate 68 62 63 Pulse Rate [Left P ulse Oximeter] Respiratory Rate Blood Pressure 129/72 Blood Pressure [Le ft Arm] Blood Pressure [Ri ght Upper Arm] Pulse Oximetry 95 92 90 Oxygen Delivery Me thod Oxygen Flow Rate 10/11/22 16:50 10/11/22 12:00 10/11/22 16:51 Temperature Pulse Rate 65 62 Pulse Rate [Left P ulse Oximeter] Respiratory Rate Blood Pressure 105/52 L Blood Pressure [Le ft Arm] Blood Pressure [Ri ght Upper Arm] 118/77 Pulse Oximetry 91 95 91 Oxygen Delivery Me thod Room Air Oxygen Flow Rate 10/11/22 17:01 10/11/22 17:31 10/11/22 18:01 Temperature Pulse Rate 58 L 57 L 61 Pulse Rate [Left P ulse Oximeter] Respiratory Rate Blood Pressure 114/49 L 129/65 135/68 Blood Pressure [Le ft Arm] Blood Pressure [Ri ght Upper Arm] Pulse Oximetry 90 91 92 Oxygen Delivery Me thod Oxygen Flow Rate 10/11/22 18:43 10/11/22 18:51 10/11/22 18:51 Temperature 97.7 F 97.7 F Pulse Rate Pulse Rate [Left P ulse Oximeter] 61 61 Respiratory Rate 18 20 20 Blood Pressure Blood Pressure [Le ft Arm] 127/62 127/63 Blood Pressure [Ri ght Upper Arm] Pulse Oximetry 97 94 94 Oxygen Delivery Me thod Room Air Room Air Room Air Oxygen Flow Rate 10/11/22 18:52 10/11/22 23:00 10/11/22 23:00 Temperature 98.3 F Pulse Rate 64 Pulse Rate [Left P ulse Oximeter] 68 Respiratory Rate 18 Blood Pressure Blood Pressure [Le ft Arm] 115/51 L Blood Pressure [Ri ght Upper Arm] Pulse Oximetry 94 93 Oxygen Delivery Me thod Nasal Cannula Oxygen Flow Rate 0.5 10/11/22 23:00 10/11/22 23:00 10/12/22 03:00 Temperature 97.9 F Pulse Rate Pulse Rate [Left P ulse Oximeter] 68 Respiratory Rate 18 18 Blood Pressure Blood Pressure [Le ft Arm] 126/62 Blood Pressure [Ri ght Upper Arm] Pulse Oximetry 93 93 95 Oxygen Delivery Me thod Nasal Cannula Nasal Cannula Oxygen Flow Rate 0.5 0.5 10/12/22 07:00 10/12/22 07:00 10/12/22 07:00 Temperature 98.4 F Pulse Rate Pulse Rate [Left P ulse Oximeter] 82 Respiratory Rate 18 18 Blood Pressure Blood Pressure [Le ft Arm] 132/67 Blood Pressure [Ri ght Upper Arm] Pulse Oximetry 94 94 94 Oxygen Delivery Me thod Nasal Cannula Nasal Cannula Oxygen Flow Rate 0.5 0.5 Results Labs Labs: Abnormal lab results 10/12/22 10/12/22 10/12/22 Range/Units 06:55 06:55 06:55 RBC 3.85 L (4.00-5.20) m/uL Hgb 11.7 L (12.0-16.0) gm/dL VBG pH 7.459 H (7.32-7.43) VBG pCO2 35 L (40-50) mmHG VBG pO2 65.7 H (25-47) mmHG Glucose 118 H (60-115) mg/dL AST 46 H (12-35) U/L C-Reactive Protein 2.0 H (0.5-1.0) mg/dL Diabetes panel 10/12/22 Range/Units 06:55 Sodium 138 (135-149) mmol/L Potassium 4.2 (3.6-5.1) mmol/L Chloride 108 (96-114) mmol/L Carbon Dioxide 22 (20-32) mmol/L BUN 19 (7-30) mg/dL Creatinine 0.5 (0.5-1.5) mg/dL Glucose 118 H (60-115) mg/dL Calcium 8.5 (8.4-10.6) mg/dL AST 46 H (12-35) U/L ALT 29 (4-35) U/L Alkaline Phosphatase 120 (40-150) U/L Total Protein 7.0 (6.0-8.3) g/dL Albumin 4.0 (3.3-5.0) g/dL Calcium panel 10/12/22 Range/Units 06:55 Calcium 8.5 (8.4-10.6) mg/dL Albumin 4.0 (3.3-5.0) g/dL Pituitary panel 10/12/22 Range/Units 06:55 Sodium 138 (135-149) mmol/L Potassium 4.2 (3.6-5.1) mmol/L Chloride 108 (96-114) mmol/L Carbon Dioxide 22 (20-32) mmol/L BUN 19 (7-30) mg/dL Creatinine 0.5 (0.5-1.5) mg/dL Glucose 118 H (60-115) mg/dL Calcium 8.5 (8.4-10.6) mg/dL Adrenal panel 10/12/22 Range/Units 06:55 Sodium 138 (135-149) mmol/L Potassium 4.2 (3.6-5.1) mmol/L Chloride 108 (96-114) mmol/L Carbon Dioxide 22 (20-32) mmol/L BUN 19 (7-30) mg/dL Creatinine 0.5 (0.5-1.5) mg/dL Glucose 118 H (60-115) mg/dL Calcium 8.5 (8.4-10.6) mg/dL Total Bilirubin 1.0 (0.1-1.5) mg/dL AST 46 H (12-35) U/L ALT 29 (4-35) U/L Alkaline Phosphatase 120 (40-150) U/L Total Protein 7.0 (6.0-8.3) g/dL Albumin 4.0 (3.3-5.0) g/dL All other labs normal. Assessment and Plan Assessment and plan (1) Cholelithiasis: Problem comment: MRCP, 10/11/2022. Dilated common bile duct. No evidence of choledocholithiasis. General surgery is planning a laparoscopic cholecystectomy on 10/13. No antibiotics planned. Status post 1 dose of Zosyn in the ED. covering with Lovenox and holding Xarelto. Status: Acute Plan 76-year-old female admitted to the hospital with epigastric pain that is likely due to symptomatic cholelithiasis. I discussed with the patient her imaging findings and her laboratory findings. Patient does have evidence of gallstones in her gallbladder. Her common bile duct is dilated to 10 mm with no evidence of a retained stone on MRCP. Patient continues to have pain that makes me suspicious that she might have some degree of cholecystitis. I think this patient would benefit from laparoscopic cholecystectomy with intraoperative cholangiogram. I discussed the procedure with the patient. I also discussed the risks associated the procedure including infection, bleeding, injury to intra-abdominal organs, and injury to the common bile duct. I also discussed the possible need for ERCP. Patient is in agreement to proceed with surgery. We will plan the surgery for tomorrow morning. Patient's Xarelto will be held for 3 days. Patient should hold her Lovenox tonight. Patient should be NPO at midnight.
[2022-10-12] MEDS: OXYCODONE 5 MG TABLET PO ×2 (12:06→16:15)
[2022-10-12] MEDS: LOSARTAN POTASSIUM 50 MG TABLET PO ×2 (12:06→21:48)
[2022-10-12] MEDS: METOPROLOL SUCCINATE (XL) 100 MG TAB PO (12:07)
[2022-10-12] MEDS: hydroCHLOROthiazide 25 MG TABLET PO (12:07)
[2022-10-12] MEDS: FLUOXETINE HCL 20 MG CAPSULE PO (12:07)
[2022-10-12 13:50] VITALS: BP 134/50; PULSE 77; RESP 18; TEMP 36.9; O2SAT 95
--- NOTE | 2022-10-12 14:38 | PM.IMPN1 ---
Progress Note: A&P Assessment and plan (1) Cholelithiasis: Problem details: MRCP, 10/11/2022. Dilated common bile duct. No evidence of choledocholithiasis. General surgery is planning a laparoscopic cholecystectomy on 10/13. No antibiotics planned. Status post 1 dose of Zosyn in the ED. covering with Lovenox and holding Xarelto. -no Lovenox tonight. NPO at midnight. Continue fluids. Status: Acute (2) Chronic anticoagulation: Problem details: Xarelto for chronic DVT. Last dose was the morning of 10/10. Covering with Lovenox. Status: Acute (3) Recurrent deep vein thrombosis (DVT): Problem details: Three lifetime DVTs. Last was August of 2022. Recommended lifetime Xarelto. Status: Acute (4) Hypertension: Problem details: 3 med regimen: HCTZ, Losartan, Toprol xl Status: Acute (5) Morbid obesity: Status: Acute (6) Bereavement, uncomplicated: Problem details: just in 09/09. On prozac. Status: Acute Subjective Date Seen: 10/12/22 Interval history: Daily Progress Note - Hospital Medicine Day #: 2 CC: Abdominal pain Patient has been stable since admission. No significant pain or dry heaves/vomiting. She had 1 dose of IV morphine at 830 last night. Today at noon she had 5 mg of oxycodone. she feels just ok - sipping clears. has a headache. passing urine frequently. met the surgeon, questions answered. IV fluids still running D5 half-normal with potassium OVERNIGHT UPDATES FROM STAFF & MED, LAB, IMAGING UPDATES Vital signs are stable overnight. No new fevers. Labs reviewed. CBC is unremarkable other than a slight drift in her hemoglobin likely from hemodilution. Chemistries, lipase, magnesium are all essentially unremarkable. There is small bump in her AST. CRP is 2.0. Urine culture is negative No new imaging. Review of Systems: See subjective Cardiac: No new chest pain/pressure/palpitations. Respiratory: no new dyspnea. GI: No abdominal bloating Objective: Vitals: see above Lungs: Clear. Cardiac: S1S2. Disposition/Potential discharge - Likely to return to previous living situation. Total time is 35 minutes with greater than 50% spent in counseling and coordination of care. Exam Const: Vital Signs, click to edit/add: Vital Signs - 24 hr 10/11/22 15:41 10/11/22 16:00 10/11/22 16:30 Temperature Pulse Rate 68 62 63 Pulse Rate [Left P ulse Oximeter] Respiratory Rate Blood Pressure 129/72 Blood Pressure [Le ft Arm] Pulse Oximetry 95 92 90 Oxygen Delivery Me thod Oxygen Flow Rate 10/11/22 16:50 10/11/22 16:51 10/11/22 17:01 Temperature Pulse Rate 65 62 58 L Pulse Rate [Left P ulse Oximeter] Respiratory Rate Blood Pressure 105/52 L 114/49 L Blood Pressure [Le ft Arm] Pulse Oximetry 91 91 90 Oxygen Delivery Me thod Oxygen Flow Rate 10/11/22 17:31 10/11/22 18:01 10/11/22 18:43 Temperature 97.7 F Pulse Rate 57 L 61 Pulse Rate [Left P ulse Oximeter] 61 Respiratory Rate 18 Blood Pressure 129/65 135/68 Blood Pressure [Le ft Arm] 127/62 Pulse Oximetry 91 92 97 Oxygen Delivery Me thod Room Air Oxygen Flow Rate 10/11/22 18:51 10/11/22 18:51 10/11/22 18:52 Temperature 97.7 F Pulse Rate Pulse Rate [Left P ulse Oximeter] 61 Respiratory Rate 20 20 Blood Pressure Blood Pressure [Le ft Arm] 127/63 Pulse Oximetry 94 94 94 Oxygen Delivery Me thod Room Air Room Air Oxygen Flow Rate 10/11/22 23:00 10/11/22 23:00 10/11/22 23:00 Temperature 98.3 F Pulse Rate 64 Pulse Rate [Left P ulse Oximeter] 68 Respiratory Rate 18 Blood Pressure Blood Pressure [Le ft Arm] 115/51 L Pulse Oximetry 93 93 Oxygen Delivery Me thod Nasal Cannula Oxygen Flow Rate 0.5 10/11/22 23:00 10/12/22 03:00 10/12/22 07:00 Temperature 97.9 F Pulse Rate Pulse Rate [Left P ulse Oximeter] 68 Respiratory Rate 18 18 Blood Pressure Blood Pressure [Le ft Arm] 126/62 Pulse Oximetry 93 95 94 Oxygen Delivery Me thod Nasal Cannula Nasal Cannula Oxygen Flow Rate 0.5 0.5 10/12/22 07:00 10/12/22 07:00 10/12/22 13:50 Temperature 98.4 F 98.4 F Pulse Rate Pulse Rate [Left P ulse Oximeter] 82 77 Respiratory Rate 18 18 18 Blood Pressure Blood Pressure [Le ft Arm] 132/67 134/50 L Pulse Oximetry 94 94 95 Oxygen Delivery Me thod Nasal Cannula Nasal Cannula Room Air Oxygen Flow Rate 0.5 0.5 Labs Labs: Laboratory Results - last 24 hr 10/11/22 10/12/22 10/12/22 06:50 06:55 06:55 WBC 7.76 RBC 3.85 L Hgb 11.7 L Hct 36.8 MCV 96 MCH 30 MCHC 32 Plt Count 252 VBG pH VBG pCO2 VBG pO2 VBG HCO3 Sodium 138 Potassium 4.2 Chloride 108 Carbon Dioxide 22 BUN 19 Creatinine 0.5 Estimated Creat Clear 42.39 Estimated GFR 97 Glucose 118 H Calcium 8.5 Magnesium 1.8 Total Bilirubin 1.0 AST 46 H ALT 29 Alkaline Phosphatase 120 C-Reactive Protein 2.0 H Total Protein 7.0 Albumin 4.0 Lipase 112 71 10/12/22 06:55 WBC RBC Hgb Hct MCV MCH MCHC Plt Count VBG pH 7.459 H VBG pCO2 35 L VBG pO2 65.7 H VBG HCO3 25 Sodium Potassium Chloride Carbon Dioxide BUN Creatinine Estimated Creat Clear Estimated GFR Glucose Calcium Magnesium Total Bilirubin AST ALT Alkaline Phosphatase C-Reactive Protein Total Protein Albumin Lipase
[2022-10-12 15:00] VITALS: BP 134/54; PULSE 65; RESP 28; TEMP 36.8; O2SAT 93
--- NOTE | 2022-10-12 15:44 | PC.NURSE ---
shift note: vss stable. pt afeb. pt medicated x1 with oxycodone for 7/10 upper abd pain. pt passing flatus. pt denies n/v. IV replaced.
[2022-10-12] MEDS: IBUPROFEN 600 MG TABLET PO (16:15)
[2022-10-12] MEDS: hydrOXYzine pamoate 25 MG CAPSULE PO (17:11)
[2022-10-12 19:00] VITALS: BP 125/54; PULSE 58; RESP 18; TEMP 36.8; O2SAT 95
[2022-10-12] MEDS: SIMVASTATIN 40 MG TABLET PO (21:49)
[2022-10-12 23:00] VITALS: BP 119/56; PULSE 53; RESP 20; TEMP 36.5; O2SAT 92
--- NOTE | 2022-10-12 23:58 | PC.NURSE ---
Nursing Care Hours: [id number] Pt this shift calm and cooperative with cares, SB assist in room d/t IV pole. Pt seems a little unbalanced but denies dizziness or light headedness. L hand IV dc'd d/t occlusion, R AC started and patent. Pt tolerated well. C/o pain once 02/25, treated per eMAR. Tolerating clear liquids.
[2022-10-13] VITALS (25 sets, daily range): BP systolic 117–149; BP diastolic 52–83; PULSE 53–83; RESP 16–20; TEMP 36.3–36.8; O2SAT 84–99
[2022-10-13] MEDS: 5 % DEX/0.45 SOD CHL+KCL20 mEq 1,000 ML 100 ML IV (07:06)
[2022-10-13 07:20] LABS: Hemoglobin* 11.1 gm/dL (12.0-16.0); Mean Corpuscular HGB Conc 33 gm/dL (32-36); Mean Corpuscular Hemoglobin 31 pg (26-34); Mean Corpuscular Volume 94 fL (80-100); Platelet Count* 279 K/uL (140-440); Red Blood Count 3.61 m/uL (4.00-5.20); White Blood Count* 5.89 K/uL (4.50-11.00)
[2022-10-13 07:23] LABS: Slide Review Reflex No
--- NOTE | 2022-10-13 07:37 | PC.NURSE ---
[id number]: Patient pleasant and cooperative. Denies pain. NPO d/t surgery at 0900. SBA. BS active. Denies N/V. Afebrile.
[2022-10-13 07:39] LABS: Albumin* 3.7 g/dL (3.3-5.0); Chloride* 107 mmol/L (96-114); Sodium* 138 mmol/L (135-149)
[2022-10-13 07:40] LABS: Potassium* 3.5 mmol/L (3.6-5.1)
[2022-10-13 07:42] LABS: Aspartate Amino Transferase* 41 U/L (12-35); Bilirubin Total* 0.8 mg/dL (0.1-1.5); Blood Urea Nitrogen* 11 mg/dL (7-30); Carbon Dioxide* 25 mmol/L (20-32); Creatinine* 0.6 mg/dL (0.5-1.5); Est. Creatinine Clearance* 42.39; Estimated Glomerular Filt Rate 92 ml/min; Total Protein* 6.5 g/dL (6.0-8.3)
[2022-10-13 07:43] LABS: Alanine Aminotransferase* 35 U/L (4-35); Alkaline Phosphatase* 160 U/L (40-150); Calcium* 8.6 mg/dL (8.4-10.6); Glucose* 110 mg/dL (60-115)
[2022-10-13 07:49] LABS: INR 1.12 (0.91-1.10)
--- NOTE | 2022-10-13 09:35 | CRLHL7_ITS ---
For Patients: As a result of the Century Cures Act, medical imaging exams and procedure reports are released immediately into your electronic medical record. You may view this report before your referring provider. If you have questions, please contact your health care provider. INDICATION: lap nathalia W/GRAMS HISTORY: Intraoperative evaluation. COMPARISON: MRI/MRCP, 10/11/2022. Technique: Intraoperative cholangiogram. FINDINGS: Single image obtained from an intraoperative cholangiogram. 29.6 seconds of fluoroscopy time. I was not present for the procedure. Images demonstrate a patent common bile duct, with contrast seen within the duodenum. No filling defect or mass is visualized. No extravasation of contrast is seen. IMPRESSION: Intraoperative imaging guidance provided for a cholangiogram as above. Dictated by Salomón Richard MD @ 10/13/2022 11:43:26 AM Dictated by: Salomón Richard MD @ 10/13/2022 11:43:35 (Electronically Signed)
[2022-10-13] MEDS: LACTATED RINGERS 1000 ML 1,000 ML 100 ML IV ×2 (09:37→21:01)
[2022-10-13] MEDS: CEFAZOLIN 2 GM INJ IVP (10:05)
[2022-10-13] MEDS: BUPIVACAINE 0.25% 30 ML 10 ML INJECTION (10:18)
--- NOTE | 2022-10-13 10:35 | SUR.OPER ---
Patient positioned supine on OR #4 bed for the intubation. Perioperative team supported arms bilaterally on arm boards. ? Final approval of positioning by surgeon.
--- NOTE | 2022-10-13 10:36 | SUR.OPER ---
PATIENT BROUGHT TO OR #4 PER WHEELCHAIR.
[2022-10-13] MEDS: 0.9% SODIUM CHL 50 ML VIAL INJECTION (10:51)
[2022-10-13] MEDS: IOPAMIDOL 50 ML VIAL INJECTION (10:51)
--- NOTE | 2022-10-13 11:44 | P.GSOP_ITS ---
Operative Note Date of procedure: 10/13/22 Type of Procedure: 1. Laparoscopic cholecystectomy with intraoperative cholangiogram. Procedure Description: After discussing the risks and benefits of the procedure, the patient signed informed consent.? The operative site was marked and the patient was brought to the operating room and placed on the operating table in supine position.? Care was taken to pad the patient's pressure points.?? The patient was then intubated by anesthesia.?? The operative site was then prepped and draped in the usual sterile fashion.? A time-out was then performed. A 5-mm laparoscopy port was placed in the left upper quadrant guided by a 5-mm laparoscope placed into a translucent trochar.~ Passage through the layers of the abdominal wall was visualized with the laparoscope.~ A pneumoperitoneum was established. A 0-degree 5-mm laparoscope was advanced into the abdomen. The abdomen was briefly surveyed, and no adhesions were noted. A 10-mm port were placed infraumbilically and two more 5 mm ports were placed on the right under direct visualization by laparoscope. The camera was then changed to 10 mm 30- degree scope and placed into the abdomen through the 10 mm port. The left upper quadrant port entrance was examined and no injury to intra-abdominal organs was identified. The gallbladder was identified, the fundus grasped and retracted cephalad. Edema was noted in the gallbladder wall. Omentum was adherent to the gallbladder and those adhesions were taken down with hook cautery. The infundibulum was grasped and retracted laterally, exposing the peritoneum overlying the triangle of Calot. This was then divided and exposed in a blunt fashion and with hook cautery. Common bile duct was not identified but care was taken not to injure it. The cystic duct was clearly identified and bluntly dissected circumfe rentially. Cystic artery was identified and tissues around it were dissected off. The cystic artery and the cystic duct were clearly going into the gallbladder. The cystic artery was then doubly ligated with surgical clips on the patient's side and singly clipped on the gallbladder side and divided. We then proceeded with intraoperative cholnagiogram. The cystic duct was clipped with a 5 mm clip on the gallbladder side and a small ductotomy was made with laparoscopic Metzenbaum scissors. An additional 5 mm port was placed under direct visualization in the right upper quadrant. A blue introducer from an Arrow cholangiogram kit was placed through the port and a cholangiocatheter was placed through the introducer and directed into the cystic duct. The catheter was then clipped with a single 5 mm clip at the ductotomy site to secure it in place. Fluoroscopy was brought onto the field and Optiray 300 contrast dye was injected through the cholangiocatheter. The biliary tree was visualized and the contrast appeared to be emptying into the small bowel. However, there was possibly a filling defect that was flowing to the hepatic ducts when contrast was flushed through the biliary tree. Glucagon was administered intravenously and biliary tree was flushed with saline again. Contrast dye was injected into the cystic duct again, and emptied well into the duodenum. No further filling defectes were identified. There was good filling of the right and left hepatic tree. At this time 5 mm clip on the cystic duct and cholangiocatheter were removed and the cholangiocatheter was removed from the cystic duct. The duct was then clipped with two 5 mm clips on the patient's side just below the ductotomy. The cystic duct was then divided at the level of ductotomy. The clips barely went across the cystic duct stump. I elected to placed 0-0 PDS endoloop just proximal to the cystic duct clips. The gallbladder was dissected from the liver bed in retrograde fashion using hookcautery. Active arterial bleeding was seen adjacent to the already divided cystic artery. This was controlled with 5 mm clips. No further bleeding was seen here. We continued to dissect the gallbladder from the liver. Edema was seen in the wall of the gallbladder. When the gallbladder was free, it was placed into an Endo-Catch bag and removed through the infraumbilical incision. Surgical site was examined for bleeding. No bleeding was seen in the surgical field. The fascia of the infraumbilical incision was then closed with interrupted 0-0 vicryl using Martin Coral needle under direct visualization. Pneumoperitoneum was completely reduced after viewing removal of the trocars under direct vision. The skin was then closed with 4-0 monocryl and steristrips were applied. Instrument, sponge, and needle counts were correct at closure and at the conclusion of the case. The patient was transferred to PACU in stable condition. Findings: acute cholecystitis and cholelithiasis Anesthesia: GETA Surgeon: Paulina Queen MD Estimated blood loss (mL): 20 Condition: stable Disposition: PACU
--- NOTE | 2022-10-13 11:51 | W.ANESCHARGE ---
Anesthesia Charges Start Date/Time Anesthesia Start Date: 10/13/22 Anesthesia Start Time: 09:57 Stop Date/Time Anesthesia Stop Date: 10/13/22 Anesthesia Stop Time: 01:44 Summary Emergency: No Extremes of Age: Over 69-CPT [id number]
[2022-10-13] MEDS: fentaNYL 100 MCG/2 ML inj 50 MCG IVP (12:19)
[2022-10-13] MEDS: MORPHINE 4 MG/ML INJ IVP ×5 (15:04→22:07)
[2022-10-13] MEDS: OXYCODONE 5 MG TABLET PO (15:04)
--- NOTE | 2022-10-13 16:08 | PC.NURSE ---
shift note: pt to surgery @ 945 via bed and returned a&o @ 1234. post op vss intiated. Pt has 4 lap sites and reinforced lap site with 2x2 at umbilicus that are intact. BS absent. Pt medicated with morphine sulfate IV and oxycodone po for 10/10 incisional pain. Pt denies flatus. Iv to rt AC patent and reinforced. Pt tolerating ice chips. pt up to bathroom and voided 600cc. Pt placed on 2L pnc due to sats 84% RA.
[2022-10-13] MEDS: MELATONIN 3 MG TABLET PO (21:01)
[2022-10-13] MEDS: LOSARTAN POTASSIUM 50 MG TABLET PO (21:01)
[2022-10-13] MEDS: SIMVASTATIN 40 MG TABLET PO (21:01)
[2022-10-14] MEDS: ONDANSETRON 2 MG/ML inj 4 MG IVP (00:23)
[2022-10-14 03:00] VITALS: BP 119/52; PULSE 62; RESP 20; TEMP 36.5; O2SAT 93
--- NOTE | 2022-10-14 05:53 | PC.NURSE ---
[id number]: Patient pleasant and cooperative. At beginning of shift patient rating pain 8-9/10 with PRN Morphine for relief. Last Morphine administration was at 2215. Patient rating pain 1/10 and declining pain medication. Active ice to op site. 5 lap sites in total, 4 covered with steri-strips and 1 with C/D/I dressing. SBA. O2 sats dipped to 80% so 1 Lt NC applied. Afebrile. BS active, passing gas, and 1 moderate BM during shift.
[2022-10-14] MEDS: OMEPRAZOLE 20 MG CAPSULE DR 40 MG PO (06:58)
[2022-10-14] MEDS: MORPHINE 4 MG/ML INJ IVP (06:59)
[2022-10-14 08:05] VITALS: BP 111/58; PULSE 59; RESP 16; TEMP 36.6; O2SAT 93
[2022-10-14] MEDS: METOPROLOL SUCCINATE (XL) 100 MG TAB PO (08:42)
[2022-10-14] MEDS: FLUOXETINE HCL 20 MG CAPSULE PO (08:42)
[2022-10-14] MEDS: LOSARTAN POTASSIUM 50 MG TABLET PO (08:42)
[2022-10-14 11:25] VITALS: BP 115/53; PULSE 67; RESP 18; TEMP 36.6; O2SAT 92
--- NOTE | 2022-10-14 11:36 | PM.DS1 ---
DS: Providers Provider Date Seen: 10/14/22 Date of admission: 10/13/22 09:34 Primary care physician: Yanni Headley MD Admitting Clinician: Ibeth Ho MD Consults: 10/11/22 18:51 Consult to Occupational Therapy [CONS] Routine Comment: Reason(s) for OT Consult:: Evaluate and Treat Any Restrictions?:: No Restrictions Consult to Physical Therapy [CONS] Routine Comment: Reason(s) for PT Consult:: Evaluate and Treat Any Restrictions?:: No Restrictions Consult to Purchasing Officer [CONS] Routine Comment: Reason for Consult:: Social Service Consult Attending Physician on discharge: Nilo Patel MD DS: Summary Hospital Course Hospital Course: Patient was admitted with clinical workup and symptoms consistent with acute cholecystitis. An MRCP was also obtained, given the presence of a dilated common bile duct, with no evidence of choledocholithiasis. She was on Xarelto, which was held the day prior to the procedure and the day after. She underwent a laparoscopic cholecystectomy with intraoperative cholangiogram, with again no evidence of choledocholithiasis. On postop day 1 she was tolerating a regular diet, pain was well controlled and she was ambulating independently. She does live at home alone, but is planning to discharge with her [id number] who will be taking care of her. Time Spent with Patient Time attestation: Total time spent providing and/or coordinating discharge services: Exam Narrative: Exam Narrative: General: Alert and oriented, no acute distress Abdomen: Soft, nontender and nondistended. Incisions with Steri-Strips in place clean/dry/intact. Const: Vital Signs, click to edit/add: Vital Signs - 24 hr 10/13/22 11:39 10/13/22 11:45 10/13/22 11:50 Temperature 97.8 F Pulse Rate 64 61 65 Pulse Rate [Left P ulse Oximeter] Respiratory Rate 16 18 18 Blood Pressure 128/77 138/69 142/67 H Blood Pressure [Le ft Arm] Pulse Oximetry 95 99 98 Oxygen Delivery Me thod Room Air OxyMask OxyMask Oxygen Flow Rate 10 10 10/13/22 11:55 10/13/22 12:00 10/13/22 12:05 Temperature 97.8 F Pulse Rate 62 69 65 Pulse Rate [Left P ulse Oximeter] Respiratory Rate 20 20 18 Blood Pressure 149/76 H 138/73 146/81 H Blood Pressure [Le ft Arm] Pulse Oximetry 96 96 96 Oxygen Delivery Me thod OxyMask OxyMask OxyMask Oxygen Flow Rate 10 10 10 10/13/22 12:10 10/13/22 12:15 10/13/22 12:20 Temperature 97.6 F Pulse Rate 71 67 69 Pulse Rate [Left P ulse Oximeter] Respiratory Rate 16 20 18 Blood Pressure 149/78 H 146/74 H 147/79 H Blood Pressure [Le ft Arm] Pulse Oximetry 95 94 95 Oxygen Delivery Me thod OxyMask Blow By Room Air Oxygen Flow Rate 10 10 10/13/22 12:25 10/13/22 12:34 10/13/22 12:34 Temperature 97.6 F 97.4 F L 97.4 F L Pulse Rate 70 70 Pulse Rate [Left P ulse Oximeter] 70 Respiratory Rate 18 16 16 Blood Pressure 139/61 Blood Pressure [Le ft Arm] 138/77 138/77 Pulse Oximetry 95 84 L Oxygen Delivery Me thod Room Air Room Air Room Air Oxygen Flow Rate 10/13/22 12:34 10/13/22 12:45 10/13/22 13:00 Temperature 97.4 F L 97.4 F L 97.4 F L Pulse Rate Pulse Rate [Left P ulse Oximeter] 70 69 66 Respiratory Rate 16 16 16 Blood Pressure Blood Pressure [Le ft Arm] 138/77 137/83 143/70 H Pulse Oximetry 84 L 92 92 Oxygen Delivery Me thod Room Air Nasal Cannula Nasal Cannula Oxygen Flow Rate 2 2 10/13/22 13:15 10/13/22 13:30 10/13/22 14:00 Temperature 97.4 F L 97.4 F L 97.4 F L Pulse Rate Pulse Rate [Left P ulse Oximeter] 66 71 69 Respiratory Rate 16 16 16 Blood Pressure Blood Pressure [Le ft Arm] 137/61 138/52 L 130/60 Pulse Oximetry 91 93 93 Oxygen Delivery Me thod Nasal Cannula Nasal Cannula Nasal Cannula Oxygen Flow Rate 2 2 2 10/13/22 14:30 10/13/22 15:00 10/13/22 15:00 Temperature 97.3 F L Pulse Rate Pulse Rate [Left P ulse Oximeter] 67 69 Respiratory Rate 16 16 Blood Pressure Blood Pressure [Le ft Arm] 129/66 Pulse Oximetry 95 94 Oxygen Delivery Me thod Nasal Cannula Oxygen Flow Rate 2 10/13/22 15:00 10/13/22 15:00 10/13/22 16:00 Temperature 98.1 F 98 F Pulse Rate Pulse Rate [Left P ulse Oximeter] 69 76 Respiratory Rate 16 16 16 Blood Pressure Blood Pressure [Le ft Arm] 138/62 131/78 Pulse Oximetry 94 94 94 Oxygen Delivery Me thod Nasal Cannula Nasal Cannula Nasal Cannula Oxygen Flow Rate 1 1 1 10/13/22 17:00 10/13/22 18:04 10/13/22 19:00 Temperature 97.8 F 98.1 F Pulse Rate Pulse Rate [Left P ulse Oximeter] 67 78 83 Respiratory Rate 16 16 18 Blood Pressure Blood Pressure [Le ft Arm] 122/62 124/79 125/69 Pulse Oximetry 94 93 90 Oxygen Delivery Me thod Nasal Cannula Nasal Cannula Room Air Oxygen Flow Rate 1 1 10/13/22 23:00 10/13/22 23:00 10/13/22 23:00 Temperature 98.3 F Pulse Rate Pulse Rate [Left P ulse Oximeter] 69 Respiratory Rate 20 20 Blood Pressure Blood Pressure [Le ft Arm] 121/65 Pulse Oximetry 93 93 93 Oxygen Delivery Me thod Nasal Cannula Nasal Cannula Oxygen Flow Rate 1.0 1.0 10/14/22 03:00 10/14/22 08:05 10/14/22 08:05 Temperature 97.7 F Pulse Rate Pulse Rate [Left P ulse Oximeter] 62 59 L Respiratory Rate 20 16 Blood Pressure Blood Pressure [Le ft Arm] 119/52 L Pulse Oximetry 93 93 Oxygen Delivery Me thod Nasal Cannula Oxygen Flow Rate 1.0 10/14/22 08:05 10/14/22 08:05 10/14/22 11:25 Temperature 98 F 97.9 F Pulse Rate Pulse Rate [Left P ulse Oximeter] 59 L 67 Respiratory Rate 16 16 18 Blood Pressure Blood Pressure [Le ft Arm] 111/58 L 115/53 L Pulse Oximetry 93 93 92 Oxygen Delivery Me thod Room Air Room Air Room Air Oxygen Flow Rate Discharge Plan Discharge Disposition: Home, Self-Care Date of Admission: 10/13/22 09:34 Attending Provider on Discharge: Pilar Zapien Primary Care Provider: Yanni Headley Condition: Stable Anticipated Discharge Date/Time: 10/14/22 11:19 Discharge Medications: New oxycodone 5 mg tablet 2.5 - 5 mg PO Q6H PRN (Reason: pain) Qty: 10 0RF senna 8.6 mg capsule 8.6 mg PO DAILY PRN (Reason: constipation) Qty: 90 0RF Rx Instructions: Please take stool softeners while on narcotic pain medication, stop if having >2 bowel movements per day. Continued fluoxetine 20 mg capsule 20 mg PO DAILY Label Comments: TAKE 1 CAPSULE BY MOUTH IN THE MORNING hydrochlorothiazide 25 mg tablet 25 mg PO DAILY Label Comments: TAKE 1 TABLET BY MOUTH ONCE DAILY losartan 50 mg tablet 50 mg PO BID Label Comments: TAKE 1 TABLET BY MOUTH TWICE DAILY metoprolol succinate 100 mg tablet extended release 24 hr 100 mg PO DAILY Label Comments: TAKE 1 TABLET BY MOUTH ONCE DAILY omeprazole 20 mg capsule,delayed release(DR/EC) 20 mg PO DAILY Label Comments: TAKE 1 CAPSULE BY MOUTH ONCE DAILY BEFORE A MEAL simvastatin 40 mg tablet 40 mg PO HS Label Comments: TAKE 1 TABLET BY MOUTH AT BEDTIME Xarelto 20 mg tablet 20 mg PO DAILY Rx Instructions: must administer with evening meal Discharge Orders: Discharge Order (Routine); Ordered 10/14/22 Ordered By: Ibeth Ho Patient Education: General Anesthesia (DC), Laparoscopic Cholecystectomy (DC), Post-Operative Instructions: Laparoscopic Cholecystectomy Additional Instructions: no lifting more than 15 lbs for 4 weeks post operatively. Activity Level: No strenuous activity Discharge Diet: Regular Follow Up Appointments: Paulina Queen MD [Staff Physician] - 10/29/22 9:15 am Kecia Toscano MD [Staff Physician] - 10/21/22 10:00 am Forms: [employer] Info Instructions
--- NOTE | 2022-10-14 16:17 | PM.DS1 ---
DS: Providers Provider Date Seen: 10/14/22 Date of admission: 10/13/22 09:34 Primary care physician: Yanni Headley MD Admitting Clinician: Ibeth Ho MD Consults: 10/11/22 18:51 Consult to Occupational Therapy [CONS] Routine Comment: Reason(s) for OT Consult:: Evaluate and Treat Any Restrictions?:: No Restrictions Consult to Physical Therapy [CONS] Routine Comment: Reason(s) for PT Consult:: Evaluate and Treat Any Restrictions?:: No Restrictions Consult to Diagnostic Medical Sonographer [CONS] Routine Comment: Reason for Consult:: Social Service Consult Attending Physician on discharge: Tita HO Date of Discharge: 10/14/22 DS: Diagnosis Discharge Diagnosis (1) Acute cholecystitis: Status: Acute Problem details: lap nathalia 10/13/22 (2) Chronic anticoagulation: Status: Acute Problem details: Xarelto for chronic DVT. Last dose was the morning of 10/10. Covering with Lovenox. (3) Hypertension: Status: Acute Problem details: 3 med regimen: HCTZ, Losartan, Toprol xl (4) Recurrent deep vein thrombosis (DVT): Status: Acute Problem details: Three lifetime DVTs. Last was August of 2022. Recommended lifetime Xarelto. DS: Summary Hospital Course Hospital Course: HOSPITALIST DISCHARGE SUMMARY ATTENDING PHYSICIAN: Ibeth Ho MD FINAL DIAGNOSIS: Acute Cholecystitis Chronic Anticoagulation Recurrent DVT Hypertension HOSPITAL FOLLOWUP ISSUES: 1. general surgery for routine post-op care REFERRALS WHILE ADMITTED: general surgery REFERRALS AFTER DISCHARGE: general surgery BRIEF HOSPITAL COURSE: admiited for abdominal pain. found to have a dilated CBD on imaging. presented anticoagulated on xarelto for recurrent DVT. Held anticoagulation for 3 days. uncomplicated lap cholecystectomy and neg inoperative cholangiogram on 10/13. No post-op complications. resumed anticoagulation. SUBSTANTIVE NOTATIONS ON IMAGING, LAB, MICROBIOLOGY/PATHOLOGY STUDIES: MRCP done on day of admission showed dilated CBD, 10mm potassium was 3.5 on discharge DISCHARGE MEDICATIONS: See Reconciled list - SIGNIFICANT CHANGES: none REVIEW OF SYSTEMS No new chest pain or dyspnea Pain controlled No voiding difficulties Tolerating diet challenge PHYSICAL EXAM: CONSTITUTIONAL: Happy. nearly painfree.c/o mild postoperative discomfort in the RUQ. VITAL SIGNS: see record. HEENT: Normocephalic, atraumatic. PERRL, EOMI, conjunctivae pink, no scleral icterus. Ears and nose externally normal. Pharynx normal. NECK: No JVD. No carotid bruit, no thyromegaly, no adenopathy. CHEST: Clear to auscultation bilaterally. HEART: S1 and S2 normal. Edema ABDOMEN: Soft, nontender. Normal bowel sounds. MUSCULOSKELETAL: No gross joint deformity or swelling. NEURO: Cranial nerves intact. Grossly intact. No asymmetric findings. SKIN: No rashes, petechiae, concerning changes PSYCHIATRIC: Mood euthymic. DISPOSITION: home with son. Time spent on discharge 37 minutes. Status at Discharge Functional status at discharge: independent ambulation Overall status at discharge: patient is progressing back to baseline Time Spent with Patient Time attestation: Total time spent providing and/or coordinating discharge services: Time spent: Greater than 30 minutes Exam Const: Vital Signs, click to edit/add: Vital Signs - 24 hr 10/13/22 17:00 10/13/22 18:04 10/13/22 19:00 Temperature 97.8 F 98.1 F Pulse Rate [Left P ulse Oximeter] 67 78 83 Respiratory Rate 16 16 18 Blood Pressure [Le ft Arm] 122/62 124/79 125/69 Pulse Oximetry 94 93 90 Oxygen Delivery Me thod Nasal Cannula Nasal Cannula Room Air Oxygen Flow Rate 1 1 10/13/22 23:00 10/13/22 23:00 10/13/22 23:00 Temperature 98.3 F Pulse Rate [Left P ulse Oximeter] 69 Respiratory Rate 20 20 Blood Pressure [Le ft Arm] 121/65 Pulse Oximetry 93 93 93 Oxygen Delivery Me thod Nasal Cannula Nasal Cannula Oxygen Flow Rate 1.0 1.0 10/14/22 03:00 10/14/22 08:05 10/14/22 08:05 Temperature 97.7 F Pulse Rate [Left P ulse Oximeter] 62 59 L Respiratory Rate 20 16 Blood Pressure [Le ft Arm] 119/52 L Pulse Oximetry 93 93 Oxygen Delivery Me thod Nasal Cannula Oxygen Flow Rate 1.0 10/14/22 08:05 10/14/22 08:05 10/14/22 11:25 Temperature 98 F 97.9 F Pulse Rate [Left P ulse Oximeter] 59 L 67 Respiratory Rate 16 16 18 Blood Pressure [Le ft Arm] 111/58 L 115/53 L Pulse Oximetry 93 93 92 Oxygen Delivery Me thod Room Air Room Air Room Air Oxygen Flow Rate Discharge Plan Discharge Disposition: Home, Self-Care Date of Admission: 10/13/22 09:34 Attending Provider on Discharge: Pilar Zapien Primary Care Provider: Yanni Headley Condition: Stable Anticipated Discharge Date/Time: 10/14/22 11:19 Discharge Medications: New oxycodone 5 mg tablet 2.5 - 5 mg PO Q6H PRN (Reason: pain) Qty: 10 0RF senna 8.6 mg capsule 8.6 mg PO DAILY PRN (Reason: constipation) Qty: 90 0RF Rx Instructions: Please take stool softeners while on narcotic pain medication, stop if having >2 bowel movements per day. Continued fluoxetine 20 mg capsule 20 mg PO DAILY Label Comments: TAKE 1 CAPSULE BY MOUTH IN THE MORNING hydrochlorothiazide 25 mg tablet 25 mg PO DAILY Label Comments: TAKE 1 TABLET BY MOUTH ONCE DAILY losartan 50 mg tablet 50 mg PO BID Label Comments: TAKE 1 TABLET BY MOUTH TWICE DAILY metoprolol succinate 100 mg tablet extended release 24 hr 100 mg PO DAILY Label Comments: TAKE 1 TABLET BY MOUTH ONCE DAILY omeprazole 20 mg capsule,delayed release(DR/EC) 20 mg PO DAILY Label Comments: TAKE 1 CAPSULE BY MOUTH ONCE DAILY BEFORE A MEAL simvastatin 40 mg tablet 40 mg PO HS Label Comments: TAKE 1 TABLET BY MOUTH AT BEDTIME Xarelto 20 mg tablet 20 mg PO DAILY Rx Instructions: must administer with evening meal Discharge Orders: Discharge Order (Routine); Ordered 10/14/22 Ordered By: Ibeth Ho Patient Education: Oxycodone, Rapid Release (By mouth) (ETH-Oxydose, Oxy IR,..., Senna (By mouth) (Sen, Senna-lax), General Anesthesia (DC), Laparoscopic Cholecystectomy (DC), Post-Operative Instructions: Laparoscopic Cholecystectomy Additional Instructions: no lifting more than 15 lbs for 4 weeks post operatively. Activity Level: No strenuous activity Discharge Diet: Regular Follow Up Appointments: Paulina Queen MD [Staff Physician] - 10/29/22 9:15 am Kecia Toscano MD [Staff Physician] - 10/21/22 10:00 am Forms: [employer] Info Instructions
== END 2022-10-14 13:11 | disposition home or self-care (01) | DRG 418 ==
LOC: ED 18:03 → MEDSURG 18:11
PROVIDERS: Family Medicine; Surgery; Admitting Provider Family Medicine; Emergency Provider Internal Medicine; PCP Family Medicine; Visit Provider Family Medicine
PROC: 0FT44ZZ Resection of Gallbladder, Percutaneous Endoscopic Approach (ICD-10-PCS; CPT 47563; principal; 2022-10-13 08:30)
DX: K80.00 Calculus of gallbladder with acute cholecystitis without obstruction (principal); I82.402 Acute embolism and thrombosis of unspecified deep veins of left lower extremity; K83.8 Other specified diseases of biliary tract; J84.10 Pulmonary fibrosis, unspecified; K21.9 Gastro-esophageal reflux disease without esophagitis; K76.0 Fatty (change of) liver, not elsewhere classified; Z79.01 Long term (current) use of anticoagulants; I10 Essential (primary) hypertension; E66.01 Morbid (severe) obesity due to excess calories; Z63.4 Disappearance and death of family member; Z86.718 Personal history of other venous thrombosis and embolism; F32.A Depression, unspecified; M43.02 Spondylolysis, cervical region; E78.5 Hyperlipidemia, unspecified
CPT/HCPCS: 00790; 36415; 74177; 74181; 74300; 76705; 80053; 81003; 81015; 82150; 82803; 83605; 83690; 83735; 85025; 85027; 85610; 86140; 87086; 87635; 88304; 94761; 97161; 97165; 99100; 99285; G0378; A9270; C9113; J0330; J0690; J1100; J1170; J1610; J1650; J1885; J2250; J2270; J2405; J2543; J2704; J3010; J3480; J3490; J7120; Q9967

== ENCOUNTER 2022-12-02 08:58 | Outpatient (CLI) | payer MEDICARE, OTHER, SELFPAY ==
[2022-12-02 11:36] LABS: Albumin* 4.2 g/dL (3.3-5.0)
[2022-12-02 11:37] LABS: Chloride* 105 mmol/L (96-114); Potassium* 4.1 mmol/L (3.6-5.1); Sodium* 141 mmol/L (135-149)
[2022-12-02 11:39] LABS: Alkaline Phosphatase* 108 U/L (40-150); Aspartate Amino Transferase* 21 U/L (12-35); Bilirubin Total* 0.5 mg/dL (0.1-1.5); Blood Urea Nitrogen* 18 mg/dL (7-30); Carbon Dioxide* 29 mmol/L (20-32); Cholesterol* 205 mg/dL (90-199); Creatinine* 0.6 mg/dL (0.5-1.5); Estimated Glomerular Filt Rate 92 ml/min; Total Protein* 7.2 g/dL (6.0-8.3)
[2022-12-02 11:40] LABS: Alanine Aminotransferase* 17 U/L (4-35); Calcium* 9.3 mg/dL (8.4-10.6); Glucose* 99 mg/dL (60-115); HDL Cholesterol* 49 mg/dL (>=50); LDL Cholesterol Calculated 131 mg/dL (<100); Triglycerides* 126 mg/dL (40-149)
== END 2022-12-02 08:59 | disposition home or self-care (01) ==
LOC: NFLDREF 08:58
PROVIDERS: PCP Family Medicine; Visit Provider Family Medicine
DX: Z00.00 Encounter for general adult medical examination without abnormal findings (principal); E78.5 Hyperlipidemia, unspecified; I10 Essential (primary) hypertension; R73.09 Other abnormal glucose; E66.9 Obesity, unspecified
CPT/HCPCS: 80053; 80061

== ENCOUNTER 2022-12-14 11:22 | Inpatient (IN) | payer MEDICARE, OTHER, SELFPAY ==
[2022-12-14] VITALS (26 sets, daily range): BP systolic 116–140; BP diastolic 50–82; PULSE 59–84; RESP 16; TEMP 36.1–36.7; O2SAT 92–100; BMI 38.3; BMI 38.1
--- NOTE | 2022-12-14 11:36 | ED.GENADULT ---
HPI - General Adult General Time Seen by Provider: 11:36 Date Seen: 12/14/22 Chief complaint: Abdominal Pain Stated complaint: Abdominal pain, vomiting Time Seen by Provider: 12/14/22 11:23 Source: patient and RN notes reviewed Mode of arrival: ambulatory Limitations: no limitations History of Present Illness HPI narrative: Dionte is a 76-year-old female coming into the ER with epigastric pain that is reminiscent of her presentation with her acute cholecystitis. She was hospitalized at the end of September, had a laparoscopic cholecystectomy with intraoperative cholangiogram demonstrating no evidence of choledocholithiasis on 10/13/2022. In the workup, she did have an MRCP due to a dilated common bile duct found with her acute cholecystitis. There was no evidence on the MRCP of any choledocholithiasis. Since surgery, she has had some smaller less painful episodes where there has been epigastric pain. She woke at 6 this morning and had breakfast, ate toast. Around 8:00 a.m. this epigastric pain happened and was more severe, she felt nauseated with it but has not had any vomiting. She has been having normal bowel movements without any concerning changes. She has had no fevers. This 1 is not letting up like the other episodes have and she indeed would like some pain management. Related Data Previous Rx's Medication Instructions Recorded fluoxetine 20 mg capsule 20 mg PO DAILY #90 caps 12/04/22 hydrochlorothiazide 25 mg tablet 25 mg PO DAILY #90 tabs 12/04/22 losartan 50 mg tablet 50 mg PO BID #180 tabs 12/04/22 metoprolol succinate 100 mg 100 mg PO DAILY #90 tabs 12/04/22 tablet,extended release 24 hr omeprazole 20 mg capsule,delayed 20 mg PO DAILY #90 caps 12/04/22 release rivaroxaban 20 mg tablet (Xarelto) 20 mg PO DAILY #90 tabs 12/04/22 rosuvastatin 20 mg tablet (Crestor) 20 mg PO QDAY #90 tabs 12/04/22 Allergies Allergy/AdvReac Type Severity Reaction Status Date / Time Sulfa (Sulfonamide Allergy Mild Rash Verified 12/14/22 12:25 Antibiotics) Review of Systems Status of ROS: Reports: 10 or more systems reviewed and unremarkable except as noted in History and below [facility] Medical History Benign positional vertigo Bereavement, uncomplicated Chronic neck pain Degenerative arthritis of ankle Elevated glucose (10/12/22) Epistaxis, recurrent (~09/2022) Granulomatous lung disease Obesity (BMI 30.0-34.9) Paroxysmal SVT (supraventricular tachycardia) (~2016) Surgical History H/O lumbar discectomy (~1974) H/O: hysterectomy (1992) History of neck surgery (02/17/08) S/P laparoscopic cholecystectomy (10/13/22) Status post open reduction with internal fixation (ORIF) of fracture of ankle (2005) Family History Father Stroke, Onset Age: 65 Mother Cancer of neck Sister Type 2 diabetes mellitus Social History Narrative: Recent (Aug). 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 Lives alone in [place]. Three adult children. Nonsmoker. Rare alcohol use. exersice 2/ week walks 45 min Highest level of school completed/degree received: high school graduate Smoking Status: Never smoker Do you use any of these nicotine containing products: None Second hand tobacco smoke exposure: No How often do you have a drink containing alcohol: monthly or less Alcohol type: beer, wine and hard liquor How many standard drinks containing alcohol do you have on a typical day: 1 or 2 How often do you have six or more drinks on one occasion: Never AUDIT-C Alcohol total score: 1 Non-prescribed substance use: denies use Caffeine: Yes (coffee, 2 cups) Little interest or pleasure in doing things: several days Feeling down, depressed, or hopeless: several days service: No Exam Const: Vital Signs, click to edit/add: Vital Signs - 24 hr 12/14/22 11:26 12/14/22 11:45 12/14/22 12:42 Temperature 97.1 F L Pulse Rate 64 Pulse Rate [Left P ulse Oximeter] 73 Respiratory Rate 16 Blood Pressure Blood Pressure [Ri ght Upper Arm] 132/76 Pulse Oximetry 96 100 97 Oxygen Delivery Me thod Room Air 12/14/22 12:45 12/14/22 12:46 12/14/22 13:00 Temperature Pulse Rate 65 69 67 Pulse Rate [Left P ulse Oximeter] Respiratory Rate Blood Pressure 125/60 Blood Pressure [Ri ght Upper Arm] Pulse Oximetry 96 97 94 Oxygen Delivery Me thod 12/14/22 13:02 12/14/22 13:15 12/14/22 13:30 Temperature Pulse Rate 67 65 64 Pulse Rate [Left P ulse Oximeter] Respiratory Rate Blood Pressure 125/64 Blood Pressure [Ri ght Upper Arm] Pulse Oximetry 96 98 98 Oxygen Delivery Me thod 12/14/22 13:32 12/14/22 13:33 12/14/22 13:45 Temperature Pulse Rate 62 62 65 Pulse Rate [Left P ulse Oximeter] Respiratory Rate Blood Pressure 128/63 Blood Pressure [Ri ght Upper Arm] Pulse Oximetry 99 99 99 Oxygen Delivery Me thod 12/14/22 14:00 12/14/22 14:02 Temperature Pulse Rate 61 62 Pulse Rate [Left P ulse Oximeter] Respiratory Rate Blood Pressure 117/60 Blood Pressure [Ri ght Upper Arm] Pulse Oximetry 98 97 Oxygen Delivery Me thod Documenting provider has reviewed patient's vital signs: yes Common normals: no apparent distress, oriented x3, no limitations, healthy appearing, alert and well nourished General appearance: cooperative, comfortable, well kempt and well developed Nutritional appearance: overweight HENMT: Common normals: normocephalic, head/scalp atraumatic, hearing grossly normal bilaterally, external ears normal, external nose normal, nasal mucous membranes and turbinates normal and moist oral mucous membranes Head and scalp: normocephalic and atraumatic Nose: external nose normal and nasal mucous membranes and turbinates normal External ear: external ears normal Eye: Common normals: PERRL, EOMs intact bilaterally, conjunctivae normal and no scleral icterus Conjunctiva: conjunctiva(e) normal Pupil: PERRL Neck & C-Spine: Common normals: full ROM, no lymphadenopathy, supple, no meningeal signs, no JVD and thyroid normal Thyroid: thyroid normal Chest: Common normals: inspection of chest normal and palpation of chest normal Resp: Common normals: normal respiratory effort, no retractions, no use of accessory muscles and clear to auscultation bilaterally Auscultation: clear to auscultation bilaterally Cardio: Common normals: no JVD, regular rate, regular rhythm, S1 normal heart sound, S2 normal heart sound, no gallops, no clicks and no murmurs Rate: regular rate Rhythm: regular rhythm Heart sounds: S1 normal and S2 normal GI: Other: Abdomen is soft with very definite epigastric pain. There is no true rebound but some guarding as she is quite tender and it is isolated to the epigastric area. I feel no underlying mass but depth of palpation is somewhat limited due to her pain. Bowel sounds seem hypoactive. Extremity: Other: Seems to have thickened lower extremities without definite pitting edema, no calf tenderness. Neuro: Common normals: oriented x3, CN's II-XII intact bilaterally, moves all extremities and gait normal Sensorium/orientation: alert Meningeal signs: no meningeal signs Speech: speech normal Psych: Appearance: well kempt Course Course Hospital Course: Patient will have an IV placed, she will be on pulse oximetry as I am going to initiate some morphine for pain management, will try 2 mg IV to start with, pre treat with Zofran 4 mg IV to luana any nausea. All start some low-dose IV fluids. She will need appropriate labs and will be doing CT abdomen pelvis with IV contrast. Concern would be that this could be pancreatitis and there certainly may be a hint stone given her history. I am doubtful that this represents a bowel obstruction given the presentation and her history. We will look at any intra acute abdominal pathology with the labs and the CT scan. May ultimately need to talk to General surgery on this case. Right now she is hemodynamically stable, afebrile, doubt infectious etiology at this time. Will get screening COVID testing in case she requires hospitalization. Reevaluation(s) Reevaluation #1: Patient is not having any pain now. Did have a Lupe with dinner last night. She was out to eat. She does drink some but does not endorse drinking excessively or every day. Time: 13:13 Consultations Consultation #1: Have called Dr. Zapien with this patient. We reviewed the case, she agrees that patient should have ERCP. Will try to arrange that. We both are of the understanding that given the current limitations for transfers, this may be something that we have to hold here and try to arrange for transfer for the procedure only. Time: 13:10 Consultation #2: Spoke with the hospitalist Dr. Torres and the GI on-call at [place] Dr. Simental. We have reviewed the case, reviewed that she is on Xarelto. I did subsequently confirmed that the patient last took Xarelto last night. They believe 2 days of withholding this should be sufficient but there might be some provider variability as to wanting a 3rd day of holding this medicine. They prefer we hold her here and arranged for transfer for the procedure on Thursday. We will contact the GI specialists on-call tomorrow at [place] to see if we can work on arrangements for this. I have subsequently spoken to our hospitalist Dr. Patel. He agrees on acceptance of this patient. Dr. Mcallister and I did review antibiotic usage, he will address this and discuss with our general surgeon if need be. Time: 14:36 Vital Signs Vital signs: Initial Vital Signs Temperature 97.1 F L 12/14/22 11:26 Temperature Source Temporal Artery Scan 12/14/22 11:26 Pulse Rate 73 12/14/22 11:26 Pulse Rhythm 12/14/22 11:26 Pulse Strength 3+ Normal 12/14/22 11:26 Respiratory Rate 16 12/14/22 11:26 Blood Pressure 132/76 12/14/22 11:26 Blood Pressure Mean 94 12/14/22 11:26 Blood Pressure Position Sitting 12/14/22 11:26 Pulse Oximetry 96 12/14/22 11:26 Oxygen Delivery Method 12/14/22 11:26 Vital Signs Temperature 97.1 F L 12/14/22 11:26 Pulse Rate 73 12/14/22 11:26 Respiratory Rate 16 12/14/22 11:26 Blood Pressure 132/76 12/14/22 11:26 Pulse Oximetry 96 12/14/22 11:26 Oxygen Delivery Method 12/14/22 11:26 Temperature 97.1 F L 12/14/22 11:26 Pulse Rate 62 12/14/22 14:02 Respiratory Rate 16 12/14/22 11:26 Blood Pressure 117/60 12/14/22 14:02 Pulse Oximetry 97 12/14/22 14:02 Oxygen Delivery Method 12/14/22 11:26 Medical Decision Making Lab Data Lab results reviewed: Yes I reviewed the patient's lab results Labs: Lab Results 12/14/22 12/14/22 12/14/22 Range/Units 12:15 12:15 12:15 WBC 8.34 (4.50-11.00) K/uL RBC 4.11 (4.00-5.20) m/uL Hgb 12.4 (12.0-16.0) gm/dL Hct 37.7 (33.0-51.0) % MCV 92 (80-100) fL MCH 30 (26-34) pg MCHC 33 (32-36) gm/dL RDW Coeff of La 11.9 (11.5-15.5) % Plt Count 341 (140-440) K/uL Neut % (Auto) 68.5 (42.0-72.0) % Lymph % (Auto) 22.8 (20-44) % [place] % (Auto) 6.6 (0.0-11.0) % Eos % (Auto) 1.4 (0.0-7.0) % Baso % (Auto) 0.6 (0.0-3.0) % Neut # (Auto) 5.71 (1.7-7.0) K/uL Lymph # (Auto) 1.90 (0.90-2.90) K/uL [place] # (Auto) 0.60 (0.00-0.90) K/UL Eos # (Auto) 0.12 (0.00-0.50) K/uL Baso # (Auto) 0.05 (0.00-0.30) K/uL Sodium 140 (135-149) mmol/L Potassium 3.3 L (3.6-5.1) mmol/L Chloride 105 (96-114) mmol/L Carbon Dioxide 28 (20-32) mmol/L BUN 24 (7-30) mg/dL Creatinine 0.7 (0.5-1.5) mg/dL Estimated Creat Clear 42.39 Estimated GFR 89 ml/min Glucose 121 H (60-115) mg/dL Lactate 1.6 (0.5-1.9) mmol/L Calcium 9.0 (8.4-10.6) mg/dL Total Bilirubin 1.0 (0.1-1.5) mg/dL Direct Bilirubin 0.6 H (0.0-0.5) mg/dL AST 533 H (12-35) U/L ALT 236 H (4-35) U/L Alkaline Phosphatase 299 H (40-150) U/L C-Reactive Protein 0.9 (0.5-1.0) mg/dL Total Protein 7.3 (6.0-8.3) g/dL Albumin 4.1 (3.3-5.0) g/dL Lipase 94 (23-300) U/L SARS-CoV-2 (PCR) (Negative) 12/14/22 Range/Units 12:15 WBC (4.50-11.00) K/uL RBC (4.00-5.20) m/uL Hgb (12.0-16.0) gm/dL Hct (33.0-51.0) % MCV (80-100) fL MCH (26-34) pg MCHC (32-36) gm/dL RDW Coeff of La (11.5-15.5) % Plt Count (140-440) K/uL Neut % (Auto) (42.0-72.0) % Lymph % (Auto) (20-44) % [place] % (Auto) (0.0-11.0) % Eos % (Auto) (0.0-7.0) % Baso % (Auto) (0.0-3.0) % Neut # (Auto) (1.7-7.0) K/uL Lymph # (Auto) (0.90-2.90) K/uL [place] # (Auto) (0.00-0.90) K/UL Eos # (Auto) (0.00-0.50) K/uL Baso # (Auto) (0.00-0.30) K/uL Sodium (135-149) mmol/L Potassium (3.6-5.1) mmol/L Chloride (96-114) mmol/L Carbon Dioxide (20-32) mmol/L BUN (7-30) mg/dL Creatinine (0.5-1.5) mg/dL Estimated Creat Clear Estimated GFR ml/min Glucose (60-115) mg/dL Lactate (0.5-1.9) mmol/L Calcium (8.4-10.6) mg/dL Total Bilirubin (0.1-1.5) mg/dL Direct Bilirubin (0.0-0.5) mg/dL AST (12-35) U/L ALT (4-35) U/L Alkaline Phosphatase (40-150) U/L C-Reactive Protein (0.5-1.0) mg/dL Total Protein (6.0-8.3) g/dL Albumin (3.3-5.0) g/dL Lipase (23-300) U/L SARS-CoV-2 (PCR) Negative SARS-CoV-2 (Negative) Imaging Data CT scan - abdomen: Attestation: I have reviewed the pertinent imaging results. My impression: See dilated common bile duct, await Radiology over-read. Did visualize these images. Radiologist's impression: Patient: DIONTE TORRES Facility:?[facility] Patient ID:?[id number] Site Patient ID:?[id number]. Site :?[id number] Study:?CT Abdomen/Pelvis W/ 112CC [id number] 12:33:47 PM Ordering Physician:?Amari May Final Report: INDICATION: Severe epigastric pain status post cholecystectomy. Nausea. TECHNIQUE: CT abdomen and pelvis acquired with 112 cc Isovue 370 IV contrast. COMPARISON: MRCP October 11, 2022. CT abdomen pelvis October 11, 2022. FINDINGS: Lower chest: Unremarkable. Liver: Unremarkable. Normal in size and attenuation. No suspicious masses. No intrahepatic biliary dilatation. Gallbladder and bile ducts: Gallbladder has been resected. Common bile duct measures 11 mm. Small ill-defined densities present within the distal common bile duct, these are best visualized on the coronal series 4, images 50 2-56. Pancreas: Unremarkable. No mass or inflammation. Spleen: Unremarkable. Normal in size. No masses. Adrenal glands: Unremarkable. No nodules. Kidneys: Unremarkable. No suspicious masses, stones, or hydronephrosis. GI tract: A 2.5 cm duodenal diverticulum is at the level of the sphincter of Oddi. Sigmoid diverticulosis. Remainder of the GI tract is unremarkable. Normal appendix. Vasculature: Abdominal aorta is normal in caliber. Mesenteric arteries are patent. Lymph nodes: No lymphadenopathy. Peritoneum/Abdominal Wall: Unremarkable. No sign of mass or infiltration. No free air or significant free fluid. Pelvis: Unremarkable. Bones: Unremarkable for age. IMPRESSION: Post cholecystectomy with moderate dilatation of the common bile duct measuring 11 mm. Small densities within the distal common bile duct could represent sludge or stones. No other acute or specific finding to explain epigastric abdomen pain or nausea. Please note that all CT scans at this facility use dose modulation, iterative reconstruction, and/or weight-based dosing when appropriate to reduce radiation dose to as low as reasonably achievable. Dictated by Ugo Jones MD @ 12/14/2022 12:57:03 PM (Electronic Signature) Critical Care Time Critical Care Time Critical Care Time: No Discharge Plan Discharge Clinical Impression: Choledocholithiasis, Chronic anticoagulation, Status post cholecystectomy, Elevated liver enzymes Patient Disposition: Admitted As Inpatient Condition: Improved Prescriptions: No Action fluoxetine 20 mg capsule 20 mg PO DAILY Qty: 90 4RF hydrochlorothiazide 25 mg tablet 25 mg PO DAILY Qty: 90 4RF losartan 50 mg tablet 50 mg PO BID Qty: 180 4RF metoprolol succinate 100 mg tablet extended release 24 hr 100 mg PO DAILY Qty: 90 4RF omeprazole 20 mg capsule,delayed release(DR/EC) 20 mg PO DAILY Qty: 90 4RF Xarelto 20 mg tablet 20 mg PO DAILY Qty: 90 4RF Rx Instructions: must administer with evening meal rosuvastatin [Crestor] 20 mg tablet 20 mg PO QDAY Qty: 90 4RF Follow Up/Referrals: Kecia Toscano MD [Primary Care Provider] -
--- NOTE | 2022-12-14 11:46 | CRLHL7_ITS ---
For Patients: As a result of the Century Cures Act, medical imaging exams and procedure reports are released immediately into your electronic medical record. You may view this report before your referring provider. If you have questions, please contact your health care provider. INDICATION: Severe epigastric pain status post cholecystectomy. Nausea. TECHNIQUE: CT abdomen and pelvis acquired with 112 cc Isovue 370 IV contrast. COMPARISON: MRCP October 11, 2022. CT abdomen pelvis October 11, 2022. FINDINGS: Lower chest: Unremarkable. Liver: Unremarkable. Normal in size and attenuation. No suspicious masses. No intrahepatic biliary dilatation. Gallbladder and bile ducts: Gallbladder has been resected. Common bile duct measures 11 mm. Small ill-defined densities present within the distal common bile duct, these are best visualized on the coronal series 4, images 50 2-56. Pancreas: Unremarkable. No mass or inflammation. Spleen: Unremarkable. Normal in size. No masses. Adrenal glands: Unremarkable. No nodules. Kidneys: Unremarkable. No suspicious masses, stones, or hydronephrosis. GI tract: A 2.5 cm duodenal diverticulum is at the level of the sphincter of Oddi. Sigmoid diverticulosis. Remainder of the GI tract is unremarkable. Normal appendix. Vasculature: Abdominal aorta is normal in caliber. Mesenteric arteries are patent. Lymph nodes: No lymphadenopathy. Peritoneum/Abdominal Wall: Unremarkable. No sign of mass or infiltration. No free air or significant free fluid. Pelvis: Unremarkable. Bones: Unremarkable for age. IMPRESSION: Post cholecystectomy with moderate dilatation of the common bile duct measuring 11 mm. Small densities within the distal common bile duct could represent sludge or stones. No other acute or specific finding to explain epigastric abdomen pain or nausea. Please note that all CT scans at this facility use dose modulation, iterative reconstruction, and/or weight-based dosing when appropriate to reduce radiation dose to as low as reasonably achievable. Dictated by Ugo Jones MD @ 12/14/2022 12:57:03 PM (Electronically Signed)
[2022-12-14 12:23] LABS: Lactate* 1.6 mmol/L (0.5-1.9)
[2022-12-14 12:24] LABS: Basophils Absolute Auto 0.05 K/uL (0.00-0.30); Basophils Percent Auto 0.6 % (0.0-3.0); Eosinophils Absolute Auto 0.12 K/uL (0.00-0.50); Eosinophils Percent Auto 1.4 % (0.0-7.0); Hematocrit 37.7 % (33.0-51.0); Hemoglobin* 12.4 gm/dL (12.0-16.0); Immature Granulocytes Abs Auto 0.01 K/uL (0.00-0.30); Immature Granulocytes Pct Auto 0.1 %; Lymphocytes Percent Auto 22.8 % (20-44); Mean Corpuscular HGB Conc 33 gm/dL (32-36); Mean Corpuscular Hemoglobin 30 pg (26-34); Mean Corpuscular Volume 92 fL (80-100); Monocytes Percent Auto 6.6 % (0.0-11.0); Neutrophils Absolute Auto 5.71 K/uL (1.7-7.0); Neutrophils Percent Auto 68.5 % (42.0-72.0); Platelet Count* 341 K/uL (140-440); RDW Coefficient of Variation % 11.9 % (11.5-15.5); Red Blood Count 4.11 m/uL (4.00-5.20); White Blood Count* 8.34 K/uL (4.50-11.00)
[2022-12-14 12:28] LABS: Slide Review Reflex No
[2022-12-14 12:39] LABS: Albumin* 4.1 g/dL (3.3-5.0); Chloride* 105 mmol/L (96-114)
[2022-12-14] MEDS: MORPHINE 2 MG/ML inj IVP (12:39)
[2022-12-14] MEDS: ONDANSETRON 2 MG/ML inj 4 MG IVP (12:39)
[2022-12-14] MEDS: 0.9 % SODIUM CHLORIDE 250 ml 250 ML IV (12:39)
[2022-12-14 12:40] LABS: Potassium* 3.3 mmol/L (3.6-5.1); Sodium* 140 mmol/L (135-149)
[2022-12-14 12:42] LABS: Aspartate Amino Transferase* 533 U/L (12-35); Bilirubin Direct* 0.6 mg/dL (0.0-0.5); Carbon Dioxide* 28 mmol/L (20-32); Creatinine* 0.7 mg/dL (0.5-1.5); Est. Creatinine Clearance* 42.39; Estimated Glomerular Filt Rate 89 ml/min; Total Protein* 7.3 g/dL (6.0-8.3)
[2022-12-14 12:43] LABS: Alanine Aminotransferase* 236 U/L (4-35); Alkaline Phosphatase* 299 U/L (40-150); Blood Urea Nitrogen* 24 mg/dL (7-30); Glucose* 121 mg/dL (60-115); Lipase* 94 U/L (23-300)
[2022-12-14 12:45] LABS: C Reactive Protein* 0.9 mg/dL (0.5-1.0)
[2022-12-14 13:25] LABS: SARS PCR* Negative SARS-CoV-2 (Negative)
[2022-12-14] MEDS: 0.9 % SODIUM CHLORIDE 250 ml IV (16:24)
[2022-12-14] MEDS: POTASSIUM BICARB 25 MEQ EFFERVESCENT TAB PO (16:24)
[2022-12-14] MEDS: SODIUM CHLORIDE 0.9 % (FLUSH) 10 ML SYRINGE 5 ML IVF ×3 (16:24→21:05)
[2022-12-14] MEDS: PIPERACILLIN/TAZOBACTAM 3.375 GM in 0.9 % SODIUM CHLORIDE Mini-bag 100 ML IVPB ×2 (16:25→21:05)
[2022-12-14] MEDS: ROSUVASTATIN CALCIUM 10 MG TABLET 20 MG PO (16:28)
--- NOTE | 2022-12-14 16:30 | P.IMHP_ITS ---
Hospitalist- H&P: JUSTUS History of Present Illness Date Seen: 12/14/22 Chief complaint: Abdominal pain, vomiting Narrative: Qi is a 76-year-old female coming into the ER with epigastric pain that is reminiscent of her presentation with her acute cholecystitis.? She was hospitalized at the end of September, had a laparoscopic cholecystectomy with intraoperative cholangiogram demonstrating no evidence of choledocholithiasis on 10/13/2022.? In the workup, she did have an MRCP due to a dilated common bile duct found with her acute cholecystitis.? There was no evidence on the MRCP of any choledocholithiasis.? Since surgery, she has had some smaller less painful episodes where there has been epigastric pain.? She estimates these episodes occur about every other day and can last up to about 1 hour or of pain and nausea. Nothing she does seems to provoke these episodes or to relieve them. They always resolved spontaneously. She woke at 6 this morning and had breakfast, ate toast.? Around 8:00 a.m. this epigastric pain happened and was more severe, she felt nauseated with it and has had 1 small nonbloody emesis.? Unlike previous episodes this episode has not resolved. She has been having normal bowel movements without any concerning changes.? She has had no fevers.? This 1 is not letting up like the other episodes have and she indeed would like some pain management. Dr. Cesar spoke with Gastroenterology at [facility]. They believe she needs an ERCP. They would like to wait until Thursday since she has been on Xarelto, her last dose last evening, Thursday evening December 13. They have asked us to keep her here pending her clinical course and resolution of her coagulopathy. Review of Systems Narrative: She reports doing well except for the problems as noted above. [facility] Medical History (Updated 12/14/22 @ 17:08 by Nilo Patel MD) Benign positional vertigo Bereavement, uncomplicated Chronic anticoagulation (~08/2022) Chronic neck pain Degenerative arthritis of ankle Dyslipidemia Elevated glucose (10/12/22) Epistaxis, recurrent (~09/2022) Granulomatous lung disease Hypertension Obesity (BMI 30.0-34.9) Paroxysmal SVT (supraventricular tachycardia) (~2017) Recurrent deep vein thrombosis (DVT) Surgical History (Updated 12/14/22 @ 17:08 by Nilo Patel MD) H/O lumbar discectomy (~1974) H/O: hysterectomy (1992) History of neck surgery (02/17/08) S/P laparoscopic cholecystectomy (10/13/22) Status post open reduction with internal fixation (ORIF) of fracture of ankle (2005) Family History Father Stroke, Onset Age: 65 Mother Cancer of neck Sister Type 2 diabetes mellitus Social History (Updated 12/14/22 @ 16:37 by Nilo Patel MD) Narrative: Recent (Aug). 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 Lives alone in [place]. Three adult children. Nonsmoker. Rare alcohol use. About once a month exersice 2/ week walks 45 min Highest level of school completed/degree received: high school graduate Smoking Status: Never smoker Do you use any of these nicotine containing products: None Second hand tobacco smoke exposure: Yes How often do you have a drink containing alcohol: monthly or less Alcohol type: beer, wine and hard liquor How many standard drinks containing alcohol do you have on a typical day: 1 or 2 How often do you have six or more drinks on one occasion: Never AUDIT-C Alcohol total score: 1 Non-prescribed substance use: denies use Caffeine: Yes (coffee, 2 cups) Little interest or pleasure in doing things: several days Feeling down, depressed, or hopeless: several days service: No Meds Home Medications and Allergies Home Medications Medication Instructions Recorded Confirmed Type rosuvastatin 20 mg tablet (Crestor) 20 mg PO DAILY 12/14/22 12/14/22 History Allergies Allergy/AdvReac Type Severity Reaction Status Date / Time Sulfa (Sulfonamide Allergy Mild Rash Verified 12/14/22 12:25 Antibiotics) Exam Narrative: Exam Narrative: She is alert and appears in no distress. She gives her own history. She has good detail of recent events. Head is without trauma. Sclerae nonicteric. Oropharynx with dry mucous membranes. Neck is supple without mass or adenopathy. Respirations are clear to auscultation. Cardiovascular: S1, S2, regular rate and rhythm. No murmur gallop or rub. Abdomen: Bowel sounds active. Abdomen is soft with mild to moderate epigastric tenderness. No mass. No peritonitis. External genitalia normal. Extremities without edema. She has intact pedal pulses. She moves all 4 extremities well. No jaundice. Const: Vital Signs, click to edit/add: Vital Signs - 24 hr 12/14/22 11:26 12/14/22 11:45 12/14/22 12:42 Temperature 97.1 F L Pulse Rate 64 Pulse Rate [Left P ulse Oximeter] 73 Pulse Rate [Pulse Oximeter] Respiratory Rate 16 Blood Pressure Blood Pressure [Ri ght Arm] Blood Pressure [Ri ght Upper Arm] 132/76 Pulse Oximetry 96 100 97 Oxygen Delivery Me od Room Air 12/14/22 12:45 12/14/22 12:46 12/14/22 13:00 Temperature Pulse Rate 65 69 67 Pulse Rate [Left P ulse Oximeter] Pulse Rate [Pulse Oximeter] Respiratory Rate Blood Pressure 125/60 Blood Pressure [Ri ght Arm] Blood Pressure [Ri ght Upper Arm] Pulse Oximetry 96 97 94 Oxygen Delivery Mt thod 12/14/22 13:02 12/14/22 13:15 12/14/22 13:30 Temperature Pulse Rate 67 65 64 Pulse Rate [Left P ulse Oximeter] Pulse Rate [Pulse Oximeter] Respiratory Rate Blood Pressure 125/64 Blood Pressure [Ri ght Arm] Blood Pressure [Ri ght Upper Arm] Pulse Oximetry 96 98 98 Oxygen Delivery Me thod 12/14/22 13:32 12/14/22 13:33 12/14/22 13:45 Temperature Pulse Rate 62 62 65 Pulse Rate [Left P ulse Oximeter] Pulse Rate [Pulse Oximeter] Respiratory Rate Blood Pressure 128/63 Blood Pressure [Ri ght Arm] Blood Pressure [Ri ght Upper Arm] Pulse Oximetry 99 99 99 Oxygen Delivery Mt thod 12/14/22 14:00 12/14/22 14:02 12/14/22 14:03 Temperature Pulse Rate 61 62 62 Pulse Rate [Left P ulse Oximeter] Pulse Rate [Pulse Oximeter] Respiratory Rate Blood Pressure 117/60 Blood Pressure [Ri ght Arm] Blood Pressure [Ri ght Upper Arm] Pulse Oximetry 98 97 98 Oxygen Delivery Mt thod 12/14/22 14:15 12/14/22 14:30 12/14/22 14:31 Temperature Pulse Rate 60 62 59 L Pulse Rate [Left P ulse Oximeter] Pulse Rate [Pulse Oximeter] Respiratory Rate Blood Pressure 126/61 Blood Pressure [Ri ght Arm] Blood Pressure [Ri ght Upper Arm] Pulse Oximetry 96 99 99 Oxygen Delivery Me thod 12/14/22 14:45 12/14/22 15:00 12/14/22 15:02 Temperature Pulse Rate 59 L 61 59 L Pulse Rate [Left P ulse Oximeter] Pulse Rate [Pulse Oximeter] Respiratory Rate Blood Pressure 117/50 L Blood Pressure [Ri ght Arm] Blood Pressure [Ri ght Upper Arm] Pulse Oximetry 99 92 96 Oxygen Delivery Me thod 12/14/22 15:28 12/14/22 15:28 Temperature 98.0 F Pulse Rate Pulse Rate [Left P ulse Oximeter] Pulse Rate [Pulse Oximeter] 60 Respiratory Rate 16 Blood Pressure Blood Pressure [Ri ght Arm] 140/82 H Blood Pressure [Ri ght Upper Arm] Pulse Oximetry 95 Oxygen Delivery Me thod Room Air Room Air Documenting provider has reviewed patient's vital signs: yes Hospitalist - H&P: Result Labs Labs: Short CBC 12/14/22 Range/Units 12:15 WBC 8.34 (4.50-11.00) K/uL Hgb 12.4 (12.0-16.0) gm/dL Hct 37.7 (33.0-51.0) % Plt Count 341 (140-440) K/uL BMP 12/14/22 12:15 Sodium 140 Potassium 3.3 L Chloride 105 Carbon Dioxide 28 BUN 24 Creatinine 0.7 Glucose 121 H Calcium 9.0 Liver Function 12/14/22 Range/Units 12:15 Total Bilirubin 1.0 (0.1-1.5) mg/dL Direct Bilirubin 0.6 H (0.0-0.5) mg/dL AST 533 H (12-35) U/L ALT 236 H (4-35) U/L Alkaline Phosphatase 299 H (40-150) U/L Albumin 4.1 (3.3-5.0) g/dL Imaging CT scan - abdomen: Radiologist's impression: Lower chest: Unremarkable. Liver: Unremarkable. Normal in size and attenuation. No suspicious masses. No intrahepatic biliary dilatation. Gallbladder and bile ducts: Gallbladder has been resected. Common bile duct measures 11 mm. Small ill-defined densities present within the distal common bile duct, these are best visualized on the coronal series 4, images 50 2-56. Pancreas: Unremarkable. No mass or inflammation. Spleen: Unremarkable. Normal in size. No masses. Adrenal glands: Unremarkable. No nodules. Kidneys: Unremarkable. No suspicious masses, stones, or hydronephrosis. GI tract: A 2.5 cm duodenal diverticulum is at the level of the sphincter of Oddi. Sigmoid diverticulosis. Remainder of the GI tract is unremarkable. Normal appendix. Vasculature: Abdominal aorta is normal in caliber. Mesenteric arteries are patent. Lymph nodes: No lymphadenopathy. Peritoneum/Abdominal Wall: Unremarkable. No sign of mass or infiltration. No free air or significant free fluid. Pelvis: Unremarkable. Bones: Unremarkable for age. IMPRESSION: Post cholecystectomy with moderate dilatation of the common bile duct measuring 11 mm. Small densities within the distal common bile duct could represent sludge or stones. No other acute or specific finding to explain epigastric abdomen pain or nausea. Assessment and Plan Assessment and plan (1) Biliary obstruction: Problem comment: Symptoms and elevated liver enzymes and dilated common bile duct suggest inter mittent biliary obstruction possibly due to passing of stone or sludge or a stricture. Patient benefit from an ERCP to further evaluate and treat. This will be planned for Thursday to allow her anticoagulation to wear off. If she is clinically getting worse may need to be done urgently. Gastroenterology at [facility] indicates a willingness to do this on Thursday pending bed situation Status: Suspected (2) Chronic anticoagulation: Problem comment: Xarelto for chronic DVT. DVT x3 in left leg. Previous doctor said permanent anticoagulation. Hold Xarelto for ERCP Status: Chronic (3) Recurrent deep vein thrombosis (DVT): Problem comment: Three lifetime DVTs. Most recent 09/18/22. Recommended lifetime Xarelto. Status: Chronic (4) Elevated liver enzymes: Problem comment: Suspected to be due to biliary obstruction Status: Acute (5) Status post cholecystectomy: Problem comment: September 2022 Status: Acute Plan Patient be admitted to the hospital for pain management, IV antibiotics, monitoring of symptoms and labs and allowing anticoagulation to wear off pending possible ERCP on Thursday Total time spent today is 70 minutes, 50 minutes in coordination of care and discussing with patient and other providers ongoing evaluation management of anticoagulation and biliary obstruction
[2022-12-14] MEDS: MORPHINE 4 MG/ML INJ IVP (17:10)
--- NOTE | 2022-12-14 18:28 | PC.NURSE ---
End of Shift: Patient pleasant and cooperative, A/Ox3. Patient arrived to floor about 1500. Patient vitally stable, lungs clear, BS WNL, IV intact and SL. Patient independent. Patient tolerating clear liquids, had x2 jellos for dinner. Patient rated pain once in abdomen 8/10, 2 mg of morphine given and pain reduced to 0/10.
[2022-12-14] MEDS: LOSARTAN POTASSIUM 50 MG TABLET PO (21:04)
[2022-12-15] MEDS: ONDANSETRON 2 MG/ML inj 4 MG IVP (03:07)
[2022-12-15] MEDS: PIPERACILLIN/TAZOBACTAM 3.375 GM in 0.9 % SODIUM CHLORIDE Mini-bag 100 ML IVPB ×3 (03:08→15:24)
[2022-12-15 03:13] VITALS: BP 115/55; PULSE 64; RESP 16; TEMP 36.6; O2SAT 94
--- NOTE | 2022-12-15 03:20 | PC.NURSE ---
Pt pleasant and cooperative. Up IND in room. Pain rated 0-2/10. Mild Nausea in middle of the night, given prn Zofran. VS unremarkable
[2022-12-15] MEDS: OMEPRAZOLE 20 MG CAPSULE DR PO (06:05)
[2022-12-15 07:48] LABS: Basophils Absolute Auto 0.05 K/uL (0.00-0.30); Basophils Percent Auto 0.9 % (0.0-3.0); Eosinophils Absolute Auto 0.11 K/uL (0.00-0.50); Hematocrit 36.5 % (33.0-51.0); Hemoglobin* 11.7 gm/dL (12.0-16.0); Immature Granulocytes Abs Auto 0.02 K/uL (0.00-0.30); Immature Granulocytes Pct Auto 0.4 %; Lymphocytes Absolute Auto 1.36 K/uL (0.90-2.90); Lymphocytes Percent Auto 24.2 % (20-44); Mean Corpuscular HGB Conc 32 gm/dL (32-36); Mean Corpuscular Hemoglobin 30 pg (26-34); Mean Corpuscular Volume 94 fL (80-100); Monocytes Percent Auto 6.9 % (0.0-11.0); Neutrophils Absolute Auto 3.69 K/uL (1.7-7.0); Neutrophils Percent Auto 65.6 % (42.0-72.0); Platelet Count* 295 K/uL (140-440); RDW Coefficient of Variation % 12.1 % (11.5-15.5); Red Blood Count 3.89 m/uL (4.00-5.20); White Blood Count* 5.62 K/uL (4.50-11.00)
[2022-12-15 07:59] LABS: Slide Review Reflex No
[2022-12-15 08:00] VITALS: BP 123/67; PULSE 58; RESP 20; TEMP 37.1; O2SAT 97
[2022-12-15] MEDS: MORPHINE 4 MG/ML INJ IVP ×4 (08:11→18:49)
[2022-12-15] MEDS: SODIUM CHLORIDE 0.9 % (FLUSH) 10 ML SYRINGE 5 ML IVF ×2 (08:12→12:05)
[2022-12-15 08:16] LABS: Albumin* 3.8 g/dL (3.3-5.0); Chloride* 104 mmol/L (96-114); Sodium* 139 mmol/L (135-149)
[2022-12-15 08:17] LABS: Potassium* 4.1 mmol/L (3.6-5.1)
[2022-12-15 08:19] LABS: Alanine Aminotransferase* 451 U/L (4-35); Alkaline Phosphatase* 346 U/L (40-150); Aspartate Amino Transferase* 538 U/L (12-35); Bilirubin Total* 1.7 mg/dL (0.1-1.5); Blood Urea Nitrogen* 15 mg/dL (7-30); Carbon Dioxide* 32 mmol/L (20-32); Creatinine* 0.8 mg/dL (0.5-1.5); Est. Creatinine Clearance* 42.39; Estimated Glomerular Filt Rate 76 ml/min; Glucose* 105 mg/dL (60-115); Lipase* 61 U/L (23-300); Total Protein* 6.9 g/dL (6.0-8.3)
[2022-12-15 08:20] LABS: Calcium* 8.7 mg/dL (8.4-10.6)
[2022-12-15] MEDS: LOSARTAN POTASSIUM 50 MG TABLET PO (08:39)
[2022-12-15] MEDS: ROSUVASTATIN CALCIUM 10 MG TABLET 20 MG PO (08:39)
[2022-12-15] MEDS: METOPROLOL SUCCINATE (XL) 100 MG TAB PO (08:39)
[2022-12-15] MEDS: hydroCHLOROthiazide 25 MG TABLET PO (08:39)
[2022-12-15] MEDS: FLUOXETINE HCL 20 MG CAPSULE PO (08:39)
[2022-12-15 12:00] VITALS: BP 95/59; PULSE 62; RESP 18; O2SAT 94
[2022-12-15 15:10] VITALS: BP 101/51; PULSE 55; RESP 18; TEMP 36.8; O2SAT 96
--- NOTE | 2022-12-15 15:34 | PC.NURSE ---
Pt rating her pain 9 out of 10 at initial assessment MS04 4 mg IV provided. Pain dropped to 7, then zero while she was visiting with 2 friends and sitting in the recliner. Pt received IV Zosyn. Set up by [employer] for shower. Pt performed her own ADLS. CL breakfast and no NPO d/to planned d/c to [facility] for specialty care and need for ERCP. Pt received another 4 mg Morphine after noon VS obtained. Pain decreased to 6 out of 10. Goal for pain management is 2 out of 10. Report to Noemi Miller RN for evening shift, bed now available at [facility], currently coordinating EMS transport. Pt up ad jerod in room. Continue plan of care.
--- NOTE | 2022-12-15 15:35 | PM.DS1 ---
DS: Providers Provider Date Seen: 12/15/22 Date of admission: 12/14/22 15:34 Primary care physician: Kecia Toscano MD Admitting Clinician: Nilo Patel MD Consults: 12/14/22 15:39 Consult to Physician [CONS] Routine Comment: Consulting Provider: Pilar Zapien Has provider been notified: Yes Attending Physician on discharge: Nilo Patel MD Date of Discharge: 12/15/22 DS: Diagnosis Discharge Diagnosis (1) Biliary obstruction: Status: Suspected Problem details: - Elevated LFTs, abdominal pain, recent cholecystectomy (2) Dyslipidemia: Status: Chronic Problem details: - on Rosuvastatin 20 mg (3) Hypertension: Status: Chronic Problem details: - 3 med regimen as an outpatient: HCTZ, Losartan, Toprol xl (4) Recurrent deep vein thrombosis (DVT): Status: Chronic Problem details: - Three lifetime DVTs, most recent 09/18/22. Recommended lifetime Xarelto DS: Summary Hospital Course Hospital Course: 76-year-old female, admitted to the hospital with epigastric pain and elevated LFTs on 12/14/2022. Qi had an uncomplicated cholecystectomy in September of 2022, had recurrence of epigastric pain prior to ER visit. ED imaging revealed mild dilatation of common bile duct with elevated LFTs. She was admitted with a plan to have an outpatient ERCP later this week; unfortunately, pain worsened on hospital day 1 and LFTs increased. Reviewed case with GI and hospitalist at [facility], and would agree to accept patient in transfer. Of note, patient is chronically anticoagulated given history of recurrent DVTs; last dose of Xarelto 225 pm Status at Discharge Functional status at discharge: independent ambulation Time Spent with Patient Time attestation: Total time spent providing and/or coordinating discharge services: Time spent: Greater than 30 minutes Specific discharge activities: Care coordination, reviewing plan of care with GI and accepting hospitalist Exam Narrative: Exam Narrative: GEN: Alert and oriented, appears uncomfortable but nontoxic HEENT: Normal external ears, EOMIs bilaterally, no scleral icterus CV: RRR, No concerning murmurs, rubs, or gallops R: LCTA bilaterally without concerning wheezing, rales, or rhonchi Abdomen: No significant distension, moderate discomfort with palpation Skin: No concerning skin lesions or rashes on exposed skin Neuro: Nonfocal Psych: Appropriate Const: Vital Signs, click to edit/add: Vital Signs - 24 hr 12/14/22 19:22 12/14/22 19:31 12/14/22 22:27 Temperature 98 F 96.9 F L Pulse Rate [Pulse Oximeter] 66 84 84 Respiratory Rate 16 16 16 Blood Pressure [Ri ght Arm] 117/53 L 124/82 Pulse Oximetry 95 98 Oxygen Delivery Me thod Room Air Room Air 12/14/22 22:31 12/15/22 03:13 12/15/22 08:00 Temperature 97.9 F 98 F 98.7 F Pulse Rate [Pulse Oximeter] 82 64 58 L Respiratory Rate 16 16 20 Blood Pressure [Ri ght Arm] 116/63 115/55 L 123/67 Pulse Oximetry 98 94 97 Oxygen Delivery Me thod Room Air Room Air Room Air 12/15/22 12:00 Temperature Pulse Rate [Pulse Oximeter] 62 Respiratory Rate 18 Blood Pressure [Ri ght Arm] 95/59 L Pulse Oximetry 94 Oxygen Delivery Me thod Room Air DS: Data Data Completed and Pending Completed studies during hospitalization: Procedures Fluoroscopy of Gallbladder and Bile Ducts using Other Contrast (10/13/22) Resection of Gallbladder, Percutaneous Endoscopic Approach (10/13/22) Labs on day of discharge: Labs from last 24 hours 12/15/22 12/15/22 07:20 07:20 WBC 5.62 RBC 3.89 L Hgb 11.7 L Hct 36.5 MCV 94 MCH 30 MCHC 32 RDW Coeff of La 12.1 Plt Count 295 Neut % (Auto) 65.6 Lymph % (Auto) 24.2 [place] % (Auto) 6.9 Eos % (Auto) 2.0 Baso % (Auto) 0.9 Neut # (Auto) 3.69 Lymph # (Auto) 1.36 [place] # (Auto) 0.40 Eos # (Auto) 0.11 Baso # (Auto) 0.05 Sodium 139 Potassium 4.1 Chloride 104 Carbon Dioxide 32 BUN 15 Creatinine 0.8 Estimated Creat Clear 42.39 Estimated GFR 76 Glucose 105 Calcium 8.7 Total Bilirubin 1.7 H AST 538 H ALT 451 H Alkaline Phosphatase 346 H Total Protein 6.9 Albumin 3.8 Lipase 61 Discharge Plan Discharge Disposition: Xfer Other Date of Admission: 12/14/22 15:34 Attending Provider on Discharge: Erica Galeas Consulting Providers: Pilar Zapien Primary Care Provider: Kecia Toscano Condition: Improved Discharge Medications: Continued fluoxetine 20 mg capsule 20 mg PO DAILY Qty: 90 4RF hydrochlorothiazide 25 mg tablet 25 mg PO DAILY Qty: 90 4RF losartan 50 mg tablet 50 mg PO BID Qty: 180 4RF metoprolol succinate 100 mg tablet extended release 24 hr 100 mg PO DAILY Qty: 90 4RF omeprazole 20 mg capsule,delayed release(DR/EC) 20 mg PO DAILY Qty: 90 4RF rosuvastatin [Crestor] 20 mg tablet 20 mg PO DAILY Held Xarelto 20 mg tablet 20 mg PO DAILY Qty: 90 4RF Hold Instructions: Resume on 12/17/22. Hold until after procedure at [facility] Rx Instructions: must administer with evening meal Discharge Orders: Discharge Order (Routine); Ordered 12/15/22 Ordered By: Erica Galeas Follow Up Appointments: Kecia Toscano MD [Primary Care Provider] - (hospital d/c followup in 1-2 weeks (also discuss atrophic vaginitis at the time)) [facility] Info Instructions
--- NOTE | 2022-12-15 19:25 | PC.NURSE ---
Shift/Discharge [id number]- Patient remains NPO. PRN morphine given with relief and prior to EMS departure- she states relief. She is alert and oriented and up independently. She leaves with all belongings via EMS.
--- NOTE | 2022-12-15 19:29 | PC.NURSE ---
Patient transfered to [facility], staff at [facility] notified that patient is in route.
== END 2022-12-15 19:20 | disposition short-term general hospital (02) | DRG 445 ==
LOC: ED 14:45 → MEDSURG 15:08
PROVIDERS: Admitting Provider Family Medicine; Emergency Provider Family Medicine; PCP Family Medicine; Visit Provider Family Medicine
DX: K83.1 Obstruction of bile duct (principal); I82.502 Chronic embolism and thrombosis of unspecified deep veins of left lower extremity; Z79.01 Long term (current) use of anticoagulants; R74.8 Abnormal levels of other serum enzymes; Z90.49 Acquired absence of other specified parts of digestive tract; E78.5 Hyperlipidemia, unspecified; I10 Essential (primary) hypertension; E66.9 Obesity, unspecified; J84.10 Pulmonary fibrosis, unspecified; Z68.38 Body mass index [BMI] 38.0-38.9, adult; K76.0 Fatty (change of) liver, not elsewhere classified
CPT/HCPCS: 36415; 74177; 80048; 80053; 80076; 83605; 83690; 85025; 86140; 87635; 94761; 99284; 99285; A9270; J2270; J2405; J2543; J7050; Q9967

== ENCOUNTER 2022-12-15 19:18 | Outpatient (CLI) | payer MEDICARE, OTHER, SELFPAY | END 2022-12-15 19:19 | disposition home or self-care (01) | LOC: AMB 01-13 12:49 | PROVIDERS: PCP Family Medicine; Visit Provider Family Medicine | DX: R10.9 Unspecified abdominal pain (principal); R51.9 Headache, unspecified | CPT/HCPCS: A0425; A0428 ==

== ENCOUNTER 2022-12-22 11:05 | Outpatient (CLI) | payer MEDICARE, OTHER, SELFPAY | END 2022-12-22 11:06 | disposition home or self-care (01) | LOC: NFLDREF 11:06 | PROVIDERS: PCP Family Medicine; Visit Provider Family Medicine | DX: I10 Essential (primary) hypertension (principal); E78.5 Hyperlipidemia, unspecified; E66.9 Obesity, unspecified; K92.1 Melena | CPT/HCPCS: 80053 ==

== ENCOUNTER 2023-01-14 11:12 | Emergency (ER) | payer MEDICARE, OTHER, SELFPAY ==
[2023-01-14] VITALS (19 sets, daily range): BP systolic 122–153; BP diastolic 54–71; PULSE 55–64; RESP 18; TEMP 36.3; O2SAT 95–100; BMI 37.4
--- NOTE | 2023-01-14 11:48 | ED.DIZZY ---
HPI - Dizziness General Chief Complaint: Dizziness/Vertigo Stated Complaint: dizzy Time Seen by Provider: 01/14/23 11:12 History of Present Illness HPI Narrative: 77-year-old woman presenting to the emergency department with complaint of not feeling well along with some dizziness. Feels a little nauseated at this time but no longer dizzy. This seems to started around 1:00 a.m. which would be about 10 hours ago. She woke from sleep feeling just not well not right. No chest pain or shortness of breath no rapid heart rate or sense of palpitations. She went to get up noting herself to be lightheaded and maybe dizzy. She did need her 's walker to steady herself and held onto some fernandes when ambulating about. Certainly was worse or aggravated with going to standing positions. She does admit to history of vertigo but says this is not it. 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 Recently was held on the Xarelto due to apparent GI bleed in the setting of surgery for biliary obstruction. Restarted this 10 days ago or so. She is not reporting more melena or bloody stools. No abdominal pain. No cough or cold symptoms recently. No fevers. On the way over to the emergency department at around 11:00 a.m. started to feel tingliness in her entire right arm. And now also initially described in her right face she is indicating bilateral lower face and neck. She has not experienced any focal weakness. No headache but demonstrates like her brain is feeling a little squeezed somehow. Related Data Home Medications Medication Instructions Recorded Confirmed rosuvastatin 20 mg tablet (Crestor) 20 mg PO DAILY 12/14/22 12/23/22 Previous Rx's Medication Instructions Recorded fluoxetine 20 mg capsule 20 mg PO DAILY #90 caps 12/04/22 hydrochlorothiazide 25 mg tablet 25 mg PO DAILY #90 tabs 12/04/22 losartan 50 mg tablet 50 mg PO BID #180 tabs 12/04/22 metoprolol succinate 100 mg 100 mg PO DAILY #90 tabs 12/04/22 tablet,extended release 24 hr omeprazole 20 mg capsule,delayed 20 mg PO DAILY #90 caps 12/04/22 release rivaroxaban 20 mg tablet (Xarelto) 20 mg PO DAILY #90 tabs 12/04/22 Allergies Allergy/AdvReac Type Severity Reaction Status Date / Time Sulfa (Sulfonamide Allergy Mild Rash Verified 12/23/22 11:48 Antibiotics) Review of Systems Status of ROS: Reports: 10 or more systems reviewed and unremarkable except as noted in History and below [facility] Medical History Benign positional vertigo ?H81.10 - Benign paroxysmal vertigo, unspecified ear (ICD-10) Bereavement, uncomplicated ?Z63.4 - Disappearance and of family member (ICD-10) Choledocholithiasis ?K80.50 - Calculus of bile duct without cholangitis or cholecystitis without obstruction (ICD-10) Chronic anticoagulation (~08/2022) ?Z79.01 - snf (current) use of anticoagulants (ICD-10) Chronic neck pain ?M54.2 - Cervicalgia (ICD-10) ?G89.29 - Other chronic pain (ICD-10) Degenerative arthritis of ankle ?M19.079 - Primary osteoarthritis, unspecified ankle and foot (ICD-10) Dyslipidemia ?E78.5 - Hyperlipidemia, unspecified (ICD-10) Elevated glucose (10/12/22) ?R73.09 - Other abnormal glucose (ICD-10) Elevated liver enzymes ?R74.8 - Abnormal levels of other serum enzymes (ICD-10) Epistaxis, recurrent (~09/2022) ?R04.0 - Epistaxis (ICD-10) Granulomatous lung disease ?J84.10 - Pulmonary fibrosis, unspecified (ICD-10) Hypertension ?I10 - Essential (primary) hypertension (ICD-10) Obesity (BMI 30.0-34.9) ?E66.9 - Obesity, unspecified (ICD-10) Paroxysmal SVT (supraventricular tachycardia) (~2017) ?I47.1 - Supraventricular tachycardia (ICD-10) Recurrent deep vein thrombosis (DVT) ?I82.409 - Acute embolism and thrombosis of unspecified deep veins of unspecified lower extremity (ICD-10) Surgical History H/O lumbar discectomy (~1974) ?Z98.890 - Other specified postprocedural states (ICD-10) H/O: hysterectomy (1992) ?Z90.710 - Acquired absence of both cervix and uterus (ICD-10) History of neck surgery (02/17/08) ?Z98.890 - Other specified postprocedural states (ICD-10) S/P laparoscopic cholecystectomy (10/13/22) ?Z90.49 - Acquired absence of other specified parts of digestive tract (ICD-10) Status post cholecystectomy ?Z90.49 - Acquired absence of other specified parts of digestive tract (ICD-10) Status post open reduction with internal fixation (ORIF) of fracture of ankle (2005) ?Z98.890 - Other specified postprocedural states (ICD-10) ?Z87.81 - Personal history of (healed) traumatic fracture (ICD-10) Family History Father Stroke, Onset Age: 65 Mother Cancer of neck Sister Type 2 diabetes mellitus Social History Narrative: Recent (Aug). 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 Lives alone in [place]. Three adult children. Nonsmoker. Rare alcohol use. About once a month exersice 2/ week walks 45 min Highest level of school completed/degree received: high school graduate Smoking Status: Never smoker Do you use any of these nicotine containing products: E-Cigarettes Second hand tobacco smoke exposure: Yes How often do you have a drink containing alcohol: monthly or less Alcohol type: beer, wine and hard liquor How many standard drinks containing alcohol do you have on a typical day: 1 or 2 How often do you have six or more drinks on one occasion: Never AUDIT-C Alcohol total score: 1 Non-prescribed substance use: denies use Caffeine: Yes (coffee, 2 cups) Little interest or pleasure in doing things: several days Feeling down, depressed, or hopeless: several days service: No Exam Narrative: Exam Narrative: A pleasant. NAD. Does appear mildly worried but not markedly anxious. She is breathing easily. Head is atraumatic. Cranial nerves 2-12 are intact pupils are equal appropriately reactive. Extraocular movements are full. Neck is supple strong and equal carotid upstroke. Lungs are clear. Per her usual she does prefer to lie more flat than upright. No nystagmus. Rotational movement of the head or sitting up does not reproduce dizziness at this time. Heart with a regular rate and rhythm. Little slower I would note that she is taking metoprolol. Distant. Abdomen is overweight soft nontender. Well-healing trocar scars consistent with recent surgery. Lower extremities with trace dependent edema. Const: Vital Signs, click to edit/add: Vital Signs - 24 hr 01/14/23 11:15 01/14/23 11:46 01/14/23 13:05 Temperature 97.3 F L Pulse Rate 58 L Pulse Rate [Right Pulse Oximeter] 64 Respiratory Rate 18 Blood Pressure Blood Pressure [Ri ght Upper Arm] 153/57 H Pulse Oximetry 100 100 95 Oxygen Delivery Me thod Room Air 01/14/23 13:15 01/14/23 13:30 01/14/23 13:32 Temperature Pulse Rate 58 L 60 58 L Pulse Rate [Right Pulse Oximeter] Respiratory Rate Blood Pressure 122/61 Blood Pressure [Ri ght Upper Arm] Pulse Oximetry 98 98 98 Oxygen Delivery Me thod 01/14/23 13:45 01/14/23 14:00 01/14/23 14:02 Temperature Pulse Rate 57 L 56 L 55 L Pulse Rate [Right Pulse Oximeter] Respiratory Rate Blood Pressure 124/55 L Blood Pressure [Ri ght Upper Arm] Pulse Oximetry 98 98 98 Oxygen Delivery Me thod 01/14/23 14:15 01/14/23 14:30 01/14/23 14:32 Temperature Pulse Rate 55 L 56 L 56 L Pulse Rate [Right Pulse Oximeter] Respiratory Rate Blood Pressure 123/54 L Blood Pressure [Ri ght Upper Arm] Pulse Oximetry 100 97 98 Oxygen Delivery Me thod 01/14/23 14:45 01/14/23 15:00 01/14/23 15:02 Temperature Pulse Rate 57 L 55 L 57 L Pulse Rate [Right Pulse Oximeter] Respiratory Rate Blood Pressure 139/71 Blood Pressure [Ri ght Upper Arm] Pulse Oximetry 98 99 100 Oxygen Delivery Me thod 01/14/23 15:15 01/14/23 15:30 01/14/23 15:32 Temperature Pulse Rate 55 L 55 L 55 L Pulse Rate [Right Pulse Oximeter] Respiratory Rate Blood Pressure 141/68 H Blood Pressure [Ri ght Upper Arm] Pulse Oximetry 98 98 98 Oxygen Delivery Me thod 01/14/23 15:45 Temperature Pulse Rate 55 L Pulse Rate [Right Pulse Oximeter] Respiratory Rate Blood Pressure Blood Pressure [Ri ght Upper Arm] Pulse Oximetry 99 Oxygen Delivery Me thod Documenting provider has reviewed patient's vital signs: yes Course Vital Signs Vital signs: Initial Vital Signs Temperature 97.3 F L 01/14/23 11:15 Temperature Source Temporal Artery Scan 01/14/23 11:15 Pulse Rate 64 01/14/23 11:15 Respiratory Rate 18 01/14/23 11:15 Blood Pressure 153/57 H 01/14/23 11:15 Blood Pressure Mean 89 01/14/23 11:15 Blood Pressure Position Sitting 01/14/23 11:15 Pulse Oximetry 100 01/14/23 11:15 Oxygen Delivery Method Room Air 01/14/23 11:15 Vital Signs Temperature 97.3 F L 01/14/23 11:15 Pulse Rate 64 01/14/23 11:15 Respiratory Rate 18 01/14/23 11:15 Blood Pressure 153/57 H 01/14/23 11:15 Pulse Oximetry 100 01/14/23 11:15 Oxygen Delivery Method Room Air 01/14/23 11:15 Temperature 97.3 F L 01/14/23 11:15 Pulse Rate 55 L 01/14/23 15:45 Respiratory Rate 18 01/14/23 11:15 Blood Pressure 141/68 H 01/14/23 15:32 Pulse Oximetry 99 01/14/23 15:45 Oxygen Delivery Method Room Air 01/14/23 11:15 MDM - Dizziness MDM Narrative Medical decision making narrative: It appears that something has been evolving for some time here. I did place a call to Stroke Neuro anticipating more of a subacute workup. I would consider doing an MRI actually initially here. I do not think there is a head bleed. Confirmed to proceed with basic brain MRI and go from there. Differential would include headache related symptoms, CVA with paresthesia, exacerbation of anxiety, atypical vertigo given history, pulmonary embolus, cardiovascular event, among others. IV fluids. Labs. I did order 2.5 mg of diazepam. Labs are reassuring. MRI of head was unremarkable. I did review images. Discussed these findings again with Stroke Neuro. No further recommendations at this time. During time in the emergency department symptoms in the arm and face resolved. Qi did still report just not feeling well. Was able to ambulate to and from the bathroom. Still with some mild combination of lightheadedness and dizziness. I suspect a variant of vertigo with her history of similar. Further is anticoagulated. Possible underlying viral illness. She did not feel that medications to treat vertigo are particularly helpful; just mask symptoms she said. Says that best treatment is her own self administered, what sound to be Noel type maneuvers. See patient discharge plan. Medical Records Attestation: I reviewed the patient's medical records. Lab Data Attestation: I reviewed the patient's lab results. Labs: Lab Results 01/14/23 01/14/23 01/14/23 Range/Units 11:47 11:55 11:55 WBC 6.91 (4.50-11.00) K/uL RBC 3.58 L (4.00-5.20) m/uL Hgb 10.6 L (12.0-16.0) gm/dL Hct 32.9 L (33.0-51.0) % MCV 92 (80-100) fL MCH 30 (26-34) pg MCHC 32 (32-36) gm/dL RDW Coeff of La 12.3 (11.5-15.5) % Plt Count 336 (140-440) K/uL Neut % (Auto) 65.3 (42.0-72.0) % Lymph % (Auto) 27.6 (20-44) % Turner % (Auto) 5.4 (0.0-11.0) % Eos % (Auto) 1.3 (0.0-7.0) % Baso % (Auto) 0.3 (0.0-3.0) % Neut # (Auto) 4.51 (1.7-7.0) K/uL Lymph # (Auto) 1.91 (0.90-2.90) K/uL Turner # (Auto) 0.40 (0.00-0.90) K/UL Eos # (Auto) 0.09 (0.00-0.50) K/uL Baso # (Auto) 0.02 (0.00-0.30) K/uL INR 1.50 H (0.91-1.10) APTT 39 H (23-33) Seconds D-Dimer Quant (PE/DVT) 0.29 (0.00-0.50) ug/ml Sodium Cancelled 137 Potassium Cancelled Chloride Carbon Dioxide BUN Creatinine Estimated Creat Clear Estimated GFR Glucose Calcium Total Bilirubin (0.1-1.5) mg/dL Direct Bilirubin (0.0-0.5) mg/dL AST (12-35) U/L ALT (4-35) U/L Alkaline Phosphatase (40-150) U/L Troponin I (0.01-0.04) ng/mL C-Reactive Protein NT-Pro-B Natriuret Pep pg/mL Total Protein (6.0-8.3) g/dL Albumin (3.3-5.0) g/dL SARS-CoV-2 (PCR) Negative SARS-CoV-2 (Negative) POC Troponin I 0.00 L (0.01-0.04) ng/ml 01/14/23 01/14/23 01/14/23 Range/Units 11:55 11:55 11:55 WBC (4.50-11.00) K/uL RBC (4.00-5.20) m/uL Hgb (12.0-16.0) gm/dL Hct (33.0-51.0) % MCV (80-100) fL MCH (26-34) pg MCHC (32-36) gm/dL RDW Coeff of La (11.5-15.5) % Plt Count (140-440) K/uL Neut % (Auto) (42.0-72.0) % Lymph % (Auto) (20-44) % Turner % (Auto) (0.0-11.0) % Eos % (Auto) (0.0-7.0) % Baso % (Auto) (0.0-3.0) % Neut # (Auto) (1.7-7.0) K/uL Lymph # (Auto) (0.90-2.90) K/uL Turner # (Auto) (0.00-0.90) K/UL Eos # (Auto) (0.00-0.50) K/uL Baso # (Auto) (0.00-0.30) K/uL INR (0.91-1.10) APTT (23-33) Seconds D-Dimer Quant (PE/DVT) (0.00-0.50) ug/ml Sodium Potassium 3.6 Chloride Cancelled 104 Carbon Dioxide Cancelled 24 BUN Cancelled Creatinine Estimated Creat Clear Estimated GFR Glucose Calcium Total Bilirubin (0.1-1.5) mg/dL Direct Bilirubin (0.0-0.5) mg/dL AST (12-35) U/L ALT (4-35) U/L Alkaline Phosphatase (40-150) U/L Troponin I (0.01-0.04) ng/mL C-Reactive Protein NT-Pro-B Natriuret Pep pg/mL Total Protein (6.0-8.3) g/dL Albumin (3.3-5.0) g/dL SARS-CoV-2 (PCR) (Negative) POC Troponin I (0.01-0.04) ng/ml 01/14/23 01/14/23 01/14/23 Range/Units 11:55 11:55 11:55 WBC (4.50-11.00) K/uL RBC (4.00-5.20) m/uL Hgb (12.0-16.0) gm/dL Hct (33.0-51.0) % MCV (80-100) fL MCH (26-34) pg MCHC (32-36) gm/dL RDW Coeff of La (11.5-15.5) % Plt Count (140-440) K/uL Neut % (Auto) (42.0-72.0) % Lymph % (Auto) (20-44) % Turner % (Auto) (0.0-11.0) % Eos % (Auto) (0.0-7.0) % Baso % (Auto) (0.0-3.0) % Neut # (Auto) (1.7-7.0) K/uL Lymph # (Auto) (0.90-2.90) K/uL Turner # (Auto) (0.00-0.90) K/UL Eos # (Auto) (0.00-0.50) K/uL Baso # (Auto) (0.00-0.30) K/uL INR (0.91-1.10) APTT (23-33) Seconds D-Dimer Quant (PE/DVT) (0.00-0.50) ug/ml Sodium Potassium Chloride Carbon Dioxide BUN 18 Creatinine Cancelled 0.7 Estimated Creat Clear Cancelled 41.72 Estimated GFR Cancelled Glucose Calcium Total Bilirubin (0.1-1.5) mg/dL Direct Bilirubin (0.0-0.5) mg/dL AST (12-35) U/L ALT (4-35) U/L Alkaline Phosphatase (40-150) U/L Troponin I (0.01-0.04) ng/mL C-Reactive Protein NT-Pro-B Natriuret Pep pg/mL Total Protein (6.0-8.3) g/dL Albumin (3.3-5.0) g/dL SARS-CoV-2 (PCR) (Negative) POC Troponin I (0.01-0.04) ng/ml 01/14/23 01/14/23 01/14/23 Range/Units 11:55 11:55 11:55 WBC (4.50-11.00) K/uL RBC (4.00-5.20) m/uL Hgb (12.0-16.0) gm/dL Hct (33.0-51.0) % MCV (80-100) fL MCH (26-34) pg MCHC (32-36) gm/dL RDW Coeff of La (11.5-15.5) % Plt Count (140-440) K/uL Neut % (Auto) (42.0-72.0) % Lymph % (Auto) (20-44) % Turner % (Auto) (0.0-11.0) % Eos % (Auto) (0.0-7.0) % Baso % (Auto) (0.0-3.0) % Neut # (Auto) (1.7-7.0) K/uL Lymph # (Auto) (0.90-2.90) K/uL Turner # (Auto) (0.00-0.90) K/UL Eos # (Auto) (0.00-0.50) K/uL Baso # (Auto) (0.00-0.30) K/uL INR (0.91-1.10) APTT (23-33) Seconds D-Dimer Quant (PE/DVT) (0.00-0.50) ug/ml Sodium Potassium Chloride Carbon Dioxide BUN Creatinine Estimated Creat Clear Estimated GFR 88 Glucose Cancelled 121 H Calcium Cancelled 9.0 Total Bilirubin 0.7 (0.1-1.5) mg/dL Direct Bilirubin 0.1 (0.0-0.5) mg/dL AST 29 (12-35) U/L ALT 16 (4-35) U/L Alkaline Phosphatase 130 (40-150) U/L Troponin I < 0.01 L (0.01-0.04) ng/mL C-Reactive Protein Cancelled NT-Pro-B Natriuret Pep pg/mL Total Protein (6.0-8.3) g/dL Albumin (3.3-5.0) g/dL SARS-CoV-2 (PCR) (Negative) POC Troponin I (0.01-0.04) ng/ml 01/14/23 Range/Units 11:55 WBC (4.50-11.00) K/uL RBC (4.00-5.20) m/uL Hgb (12.0-16.0) gm/dL Hct (33.0-51.0) % MCV (80-100) fL MCH (26-34) pg MCHC (32-36) gm/dL RDW Coeff of La (11.5-15.5) % Plt Count (140-440) K/uL Neut % (Auto) (42.0-72.0) % Lymph % (Auto) (20-44) % Turner % (Auto) (0.0-11.0) % Eos % (Auto) (0.0-7.0) % Baso % (Auto) (0.0-3.0) % Neut # (Auto) (1.7-7.0) K/uL Lymph # (Auto) (0.90-2.90) K/uL Turner # (Auto) (0.00-0.90) K/UL Eos # (Auto) (0.00-0.50) K/uL Baso # (Auto) (0.00-0.30) K/uL INR (0.91-1.10) APTT (23-33) Seconds D-Dimer Quant (PE/DVT) (0.00-0.50) ug/ml Sodium Potassium Chloride Carbon Dioxide BUN Creatinine Estimated Creat Clear Estimated GFR Glucose Calcium Total Bilirubin (0.1-1.5) mg/dL Direct Bilirubin (0.0-0.5) mg/dL AST (12-35) U/L ALT (4-35) U/L Alkaline Phosphatase (40-150) U/L Troponin I (0.01-0.04) ng/mL C-Reactive Protein 0.7 NT-Pro-B Natriuret Pep 515 pg/mL Total Protein 7.6 (6.0-8.3) g/dL Albumin 4.3 (3.3-5.0) g/dL SARS-CoV-2 (PCR) (Negative) POC Troponin I (0.01-0.04) ng/ml ECG Data Attestation: I personally reviewed and interpreted this ECG as follows: (Normal sinus rate of 60 without acute ischemic changes) Discharge Plan Discharge Clinical Impression: Paresthesia, Vertigo Patient Disposition: Home w/ Parent or Adult Condition: Improved Additional Instructions: Stay well-hydrated. Take care with transitions keeping your walker close in the short term. Be seen/return for intensifying symptoms, intractable vomiting, new and focal weakness. You might try some of your exercises to see if that helps you if these symptoms are persisting. Prescriptions: No Action fluoxetine 20 mg capsule 20 mg PO DAILY Qty: 90 4RF hydrochlorothiazide 25 mg tablet 25 mg PO DAILY Qty: 90 4RF losartan 50 mg tablet 50 mg PO BID Qty: 180 4RF metoprolol succinate 100 mg tablet extended release 24 hr 100 mg PO DAILY Qty: 90 4RF omeprazole 20 mg capsule,delayed release(DR/EC) 20 mg PO DAILY Qty: 90 4RF Xarelto 20 mg tablet 20 mg PO DAILY Qty: 90 4RF Hold Instructions: Resume on 12/17/22. Hold until after procedure at [facility] Rx Instructions: must administer with evening meal rosuvastatin [Crestor] 20 mg tablet 20 mg PO DAILY Follow Up/Referrals: Kecia Toscano MD [Staff Physician] - Stand Alone Forms: [facility] Info Instructions
--- NOTE | 2023-01-14 11:53 | MR_ITS ---
Final Report Patient: DIONTE TORRES Facility:?[facility] Patient ID:?[id number] Site Patient ID:?[id number]. Site :?[id number] Study:?MRI Head WO-01/14/2023 12:58:42 PM Ordering Physician:Agustin Hoff Final Report: INDICATION: Dizziness. Right arm and face paresthesias. TECHNIQUE: Multiplanar multisequence noncontrast MR images acquired through the brain. COMPARISON: None. FINDINGS: Prominence of the ventricles and sulci compatible with mild diffuse cerebral volume loss. No mass effect or midline shift. No significant parenchymal signal abnormalities. No diffusion restriction to suggest acute infarction. No intracranial hemorrhage or pathologic extra-axial fluid collection. The major arterial flow voids of the skullbase are preserved. The globes are symmetric. Mild mucosal thickening in the maxillary sinuses. Trace right mastoid effusion. IMPRESSION: No acute infarction, mass effect, or intracranial hemorrhage. Dictated by Faizan Levin MD @ 01/14/2023 1:05:46 PM (Electronic Signature)
[2023-01-14 12:13] LABS: Basophils Absolute Auto 0.02 K/uL (0.00-0.30); Basophils Percent Auto 0.3 % (0.0-3.0); Eosinophils Absolute Auto 0.09 K/uL (0.00-0.50); Eosinophils Percent Auto 1.3 % (0.0-7.0); Hematocrit 32.9 % (33.0-51.0); Hemoglobin* 10.6 gm/dL (12.0-16.0); Immature Granulocytes Abs Auto 0.01 K/uL (0.00-0.30); Immature Granulocytes Pct Auto 0.1 %; Lymphocytes Absolute Auto 1.91 K/uL (0.90-2.90); Lymphocytes Percent Auto 27.6 % (20-44); Mean Corpuscular HGB Conc 32 gm/dL (32-36); Mean Corpuscular Hemoglobin 30 pg (26-34); Mean Corpuscular Volume 92 fL (80-100); Monocytes Percent Auto 5.4 % (0.0-11.0); Neutrophils Absolute Auto 4.51 K/uL (1.7-7.0); Neutrophils Percent Auto 65.3 % (42.0-72.0); Platelet Count* 336 K/uL (140-440); RDW Coefficient of Variation % 12.3 % (11.5-15.5); Red Blood Count 3.58 m/uL (4.00-5.20); White Blood Count* 6.91 K/uL (4.50-11.00)
[2023-01-14 12:19] LABS: Slide Review Reflex No
[2023-01-14 12:26] LABS: Partial Thromboplastin Time* 39 Seconds (23-33)
[2023-01-14 12:29] LABS: D Dimer Quantitative* 0.29 ug/ml (0.00-0.50)
[2023-01-14 12:58] LABS: SARS PCR* Negative SARS-CoV-2 (Negative)
[2023-01-14] MEDS: 0.9 % SODIUM CHLORIDE 1000 ml 1,000 ML IV (13:00)
[2023-01-14] MEDS: diazePAM 5 MG/ML inj 2.5 MG IV (13:00)
[2023-01-14 13:32] LABS: Troponin I* < 0.01 ng/mL (0.01-0.04)
[2023-01-14 13:33] LABS: Alanine Aminotransferase* 16 U/L (4-35); Albumin* 4.3 g/dL (3.3-5.0); Alkaline Phosphatase* 130 U/L (40-150); Aspartate Amino Transferase* 29 U/L (12-35); Bilirubin Direct* 0.1 mg/dL (0.0-0.5); Bilirubin Total* 0.7 mg/dL (0.1-1.5); Total Protein* 7.6 g/dL (6.0-8.3)
[2023-01-14 13:41] LABS: Blood Urea Nitrogen* 18 mg/dL (7-30); Carbon Dioxide* 24 mmol/L (20-32); Chloride* 104 mmol/L (96-114); Creatinine* 0.7 mg/dL (0.5-1.5); Est. Creatinine Clearance* 41.72; Estimated Glomerular Filt Rate 88 ml/min; Glucose* 121 mg/dL (60-115); NT Pro B Type NatriureticPept* 515 pg/mL; Potassium* 3.6 mmol/L (3.6-5.1); Sodium* 137 mmol/L (135-149)
[2023-01-14 13:54] LABS: C Reactive Protein* 0.7 mg/dL (0.5-1.0)
== END 2023-01-14 15:55 | disposition home or self-care (01) ==
PROVIDERS: Emergency Provider Family Medicine; PCP Family Medicine
DX: R42 Dizziness and giddiness (principal); R20.2 Paresthesia of skin
CPT/HCPCS: 36415; 70551; 80048; 80076; 83880; 84484; 85025; 85379; 85610; 85730; 86140; 87635; 93005; 94761; 96374; 99284; 99285; J3360; J7030

== ENCOUNTER 2023-02-10 09:00 | Outpatient (RCR) | payer MEDICARE, OTHER, SELFPAY ==
--- NOTE | 2023-01-21 12:06 | PT.OPEX ---
PT [place] Outpatient Eval PT [facility] Outpatient Eval Start: 01/21/23 07:13 Freq: Status: Active Protocol: Document 01/21/23 07:15 FRANKIE (Rec: 01/21/23 07:19 FRANKIE [id number]) E-signed By Daksha Marrero PT Physical Therapy Outpatient Evaluation Insurance Information Recert Due Date 04/17/23 Insurance Name Medicare B Medical Diagnosis Vertigo Treating Diagnosis Vertigo of Rt BPPV involvement Reduced head on body movement Slow gait with WBOS and shortened stride Referring MD Dr Peyman Tobar Subjective Subjective Qi reports having vertigo for the past week. She initially had vertigo about 15 years ago. She has had about 6 seperate episodes of vertigo , non of which were from an accident or incident. Each episode seems to last about 2- 3 weeks, with PT assistance. This one started with turning/ rolling to the Right - previously was the Lt. It started at about 7/10 but is now today 4/10. She has been using Dramamine. No Mclelizine this round. She denies hearing or swallowing issues. She does state her vision seems blurry with this episode . She is able to sleep, but has been sleeping semi reclined in her recliner. She does have arthritis in her back/neck. She denies any UE N /T, did have it when it started but it is now normal. She does not have a VANEGAS associated with symptoms, but her head feels like it is on the verge of starting a VANEGAS. Pain Comments None associated Date of Last Physician Visit 01/19/23 Current Work Status Retired Occupation Was employed at [employer] in [employer]. Precautions Treatment Precautions/Contraindications Chronic Neck and LBP, Deg ankle arthritis, Obesity, Hypertension, DVT history, Heart Condition, Lumbar Discectomy Therapy Limitations/Systems Review Vision Objective Range of Motion Reduced CX Rt ROT to 50% of normal Other/Pertinent Objective Good vergence and visual tracking Functional Test Performed & Score DHI (Dizziness Handicap Index) self scored as 36/100 Assessment Assessment/Impression 77 yo with DX of Vertigo. She presents with good sit to stand, does take about 30 seconds after standing to hold the chair arm and get acclimated to position change. She ambulates with slightly WBOS and shortened stride length, absence of head on body neck movement. She did not reach for fernandes, but turned corners and moves slowly and with apprehension, which is associated with vertigo. The has good vergence and visual tracking with testing. Her CX AROM is WFL with the exception of slightly greater limitation in Rt ROT (50% of normal). Denies neck pain with active range. She c/ o symptoms indicative of Rt BPPV, thus performed [place]- hallpike for this canal. She exhibited moderate+ Ny with first position, thus continued with Canolyth repositioning for Rt BPPV. She will benefit from skilled physical therapy to provide this maneuver and cont to assess canals and educate in VOR exersizes. Thank you for this referral. Plan of Care Rehabilitation Potential Good Physical Therapy Goals In 6-8 visits, Qi will be able to report: 1. Reduced vertigo to an average of 1-2/10 2. Absence of sensation of being on the verge of a VANEGAS 3. Return to normal movement pattern vs holding head still on body 4. Self DHI score from initial 36 to less than 20/100 to indicate low to normal involvement of vestibular system. 5. Return to at least 85% of PLOF for self cares and ADL's 6. Return to sleeping in her own bed vs semi-reclined in chair. Treatment Plan/Direct Interventions Canalith Repositioning,Manual Therapy,Neuromuscular Re-ed, Self-Care/Home Management, Therapeutic Activities, Therapeutic Exercises Frequency/Duration 1-2X/Wk up to 10 visits as needed to meet goals Patient Will Be Discharged From Therapy Completion of LTG(s),Skills Plateau,Independent w/HEP, Independently Progressing Evaluation Billing Untimed Code Treatment Minutes 27 Complexity Moderate Certification Information Initial Certification Date 01/21/23 Ending Certification Date 04/17/23 Provider Signature Shows Agreement With POC & Medical Necessity Physician Signature & Date Requested Please Sign/Date Here Physician Comment/Change : Physician NPI Number #
== END 2023-06-10 23:59 | disposition home or self-care (01) ==
PROVIDERS: PCP Family Medicine; Visit Provider Family Medicine
DX: R42 Dizziness and giddiness (principal); R26.89 Other abnormalities of gait and mobility; Z51.89 Encounter for other specified aftercare
CPT/HCPCS: 95992; 97162; 97530; 97535

== ENCOUNTER 2023-02-19 13:17 | Outpatient (CLI) | payer MEDICARE, OTHER, SELFPAY ==
--- NOTE | 2023-02-19 13:20 | CRLHL7_ITS ---
For Patients: As a result of the Cures Act, medical imaging exams and procedure reports are released immediately into your electronic medical record. You may view this report before your referring provider. If you have questions, please contact your health care provider. BILATERAL SCREENING MAMMOGRAM WITH COMPUTER-AIDED DETECTION AND TOMOSYNTHESIS TECHNIQUE: CC and MLO views were obtained. These mammographic images have been obtained using full-field digital technique. These mammographic images were interpreted with the benefit of computer-aided detection. Breast Tomosynthesis was used in this interpretation. COMPARISON FILM: 12/13/21, 12/10/20, 12/07/2019. FINDINGS: The breasts are almost entirely fatty IMPRESSION: There is no radiographic evidence for malignancy. ASSESSMENT: BI-RADS Category 2: Benign RECOMMENDATION: Routine screening mammogram in 1 year. A lay language report of this examination will be provided to the patient. Pedrito Barnes M.D. Diagnostic/Nuclear Medicine Radiologist [email or web address] ALPESH/Dictated by: Pedrito Barnes MD @ 02/23/2023 10:25:00 AM (Electronically Signed)
--- NOTE | 2023-02-19 14:00 | CRLHL7_ITS ---
For Patients: As a result of the Century Cures Act, medical imaging exams and procedure reports are released immediately into your electronic medical record. You may view this report before your referring provider. If you have questions, please contact your health care provider. DXA BONE MINERAL DENSITY STUDY Reason for exam: Screening. Current height (in): 65. Weight (lb): 220. Menopause age: 49. Ethnicity: White. 1. Have you had a previous hip or vertebral fracture? No. 2. Have you had any fractures during your adult life which did not result from significant trauma (e.g., auto accident)? No. 3. Did either of your parents have a hip fracture? No. 4. Do you smoke? No. 5. Have you ever taken Glucocorticoids? No. 6. Do you have rheumatoid arthritis? No. 7. Do you have secondary osteoporosis? No. 8. Do you drink 3 or more alcoholic drinks per day? No. 9. Are you being treated for osteoporosis? No. 10. Have you ever taken any of the following medications: Actonel, Evista, Fosamax, Miacalcin, Reclast, Boniva, Forteo, HRT (i.e., estrogen/hormone therapy), Protelos, Prolia, Vitamin D, Calcium, other ??? please specify. ANSWER: No. 11. Do you have any of the following medical conditions: Anorexia or bulimia, asthma or emphysema, end stage renal disease, hyperparathyroidism, any seizure disorders, cancer, inflammatory bowel diseases, hysterectomy, other ??? please specify. ANSWER: Yes, hysterectomy. 12. What was your maximum height (inches)? 65. 13. Do you perform weight bearing exercise regularly? No. 14. Do you regularly consume dairy products? Yes. 15. Do you drink caffeinated beverages? Yes. If female: 16. At what age did your period start? 12. 17. Are you premenopausal? No. 18. How many full-term pregnancies have you had? 3. 19. Have you ever missed your period for more than 6 months in a row (not including or menopause)? No. TECHNIQUE: Bone mineral density study was performed using the [employer]. FINDINGS: The results of the study expressed as bone mineral density (BMD) are as follows: Lumbar spine L1 to L4: BMD: 1.161 g/cm2. T-score: 1.0. Z-score: 3.6 Neck Left: BMD: 0.987 g/cm2. T-score: 1.2. Z-score: 3.5 Right: BMD: 1.037 g/cm2. T-score: 1.7. Z-score: 3.9 Total Left: BMD: 1.139 g/cm2. T-score: 1.6. Z-score: 3.6 Right: BMD: 1.173 g/cm2. T-score: 1.9. Z-score: 3.8 IMPRESSION: Normal bone density. Luis Eduardo Fairbanks M.D. Diagnostic Radiologist [email or web address]/Dictated by: Luis Eduardo Fairbanks MD @ 02/20/2023 10:07:00 AM (Electronically Signed)
== END 2023-02-19 13:18 | disposition home or self-care (01) ==
LOC: MAMMO 13:17
PROVIDERS: PCP Family Medicine; Visit Provider Family Medicine
DX: Z12.31 Encounter for screening mammogram for malignant neoplasm of breast (principal); Z13.820 Encounter for screening for osteoporosis; Z78.0 Asymptomatic menopausal state
CPT/HCPCS: 77063; 77067; 77080

== ENCOUNTER 2023-04-29 09:42 | Outpatient (CLI) | payer MEDICARE, OTHER, SELFPAY | END 2023-04-29 09:43 | disposition home or self-care (01) | PROVIDERS: PCP Family Medicine; Visit Provider Family Medicine | DX: R30.0 Dysuria (principal) | CPT/HCPCS: 87086 ==

== ENCOUNTER 2023-06-01 07:52 | Outpatient (CLI) | payer MEDICARE, OTHER, SELFPAY | END 2023-06-01 07:53 | disposition home or self-care (01) | LOC: NFLDREF 10:29 | PROVIDERS: PCP Family Medicine; Referring Provider Family Medicine; Visit Provider Family Medicine | DX: I10 Essential (primary) hypertension (principal); E78.5 Hyperlipidemia, unspecified | CPT/HCPCS: 80053; 80061 ==

== ENCOUNTER 2023-08-02 12:02 | Emergency (ER) | payer MEDICARE, OTHER, SELFPAY ==
[2023-08-02 12:07] VITALS: BP 141/64; PULSE 70; RESP 16; TEMP 36.1; O2SAT 98; BMI 34.9
--- NOTE | 2023-08-02 12:46 | ED_ITS ---
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 She presents to the ER today from her home for evaluation of nausea, vomiting, diarrhea. She does not have any long-term GI problems. She was feeling healthy and well yesterday. She went out for dinner yesterday evening and had a fat he had a and she was feeling fine. She was awoken from sleep early this morning with GI upset. She was nauseous. She also started having diarrhea. She had 4 episodes of nonbilious, nonbloody emesis this morning and multiple episodes, probably 12, of watery, soupy diarrhea. No blood or melanotic stool. Some of her stools have been yellowish. No mucus. She is not having any fever. No abdominal pain. No shortness of breath. After all of her vomiting and diarrhea she did call her neighbor to ask for help. She was feeling weak and run down after all the episodes. Her neighbor came over to help her out and they decided to call t he ambulance. She was transferred by EMS. She had stable vital signs in route. EMS reports normal blood sugar. She received 4 mg of IV Zofran per EMS. She now reports she is feeling better. She also raises concern about a chronic nonhealing scab on her left cheek. She wonders if it might be skin cancer and wonders how she might get into a school photographer. She also wonders about a chronic sore on her vulva or perineum. She has been referred to a marketing engineer for that but can not get in to see them until August. Related Data Home Medications Medication Instructions Recorded Confirmed rivaroxaban 20 mg tablet (Xarelto) 20 mg PO QDAY 06/03/23 07/18/23 Previous Rx's Medication Instructions Recorded fluoxetine 20 mg capsule 20 mg PO DAILY #90 caps 12/04/22 hydrochlorothiazide 25 mg tablet 25 mg PO DAILY #90 tabs 12/04/22 losartan 50 mg tablet 50 mg PO BID #180 tabs 12/04/22 metoprolol succinate 100 mg 100 mg PO DAILY #90 tabs 12/04/22 tablet,extended release 24 hr omeprazole 20 mg capsule,delayed 20 mg PO DAILY #90 caps 12/04/22 release rosuvastatin 20 mg tablet (Crestor) 20 mg PO DAILY #90 tabs 06/03/23 loperamide 2 mg tablet (Imodium 2 mg PO Q4H PRN loose stool #14 08/02/23 A-D) tabs ondansetron 4 mg disintegrating 4 mg PO Q8H PRN nausea and 08/02/23 tablet vomiting #10 tabs Allergies Allergy/AdvReac Type Severity Reaction Status Date / Time Sulfa (Sulfonamide Allergy Mild Rash Verified 07/18/23 12:20 Antibiotics) [facility] Medical History Recurrent deep vein thrombosis (DVT) ?I82.409 - Acute embolism and thrombosis of unspecified deep veins of unspecified lower extremity (ICD-10) Elevated liver enzymes ?R74.8 - Abnormal levels of other serum enzymes (ICD-10) Choledocholithiasis ?K80.50 - Calculus of bile duct without cholangitis or cholecystitis without obstruction (ICD-10) Obesity (BMI 30.0-34.9) ?E66.9 - Obesity, unspecified (ICD-10) Benign positional vertigo ?H81.10 - Benign paroxysmal vertigo, unspecified ear (ICD-10) Chronic neck pain ?M54.2 - Cervicalgia (ICD-10) ?G89.29 - Other chronic pain (ICD-10) Elevated glucose (10/12/22) ?R73.09 - Other abnormal glucose (ICD-10) Epistaxis, recurrent (~09/2022) ?R04.0 - Epistaxis (ICD-10) Bereavement, uncomplicated ?Z63.4 - Disappearance and of family member (ICD-10) Dyslipidemia ?E78.5 - Hyperlipidemia, unspecified (ICD-10) Chronic anticoagulation (~08/2022) ?Z79.01 - long-term (current) use of anticoagulants (ICD-10) Granulomatous lung disease ?J84.10 - Pulmonary fibrosis, unspecified (ICD-10) Degenerative arthritis of ankle ?M19.079 - Primary osteoarthritis, unspecified ankle and foot (ICD-10) Hypertension ?I10 - Essential (primary) hypertension (ICD-10) Paroxysmal SVT (supraventricular tachycardia) (~2016) ?I47.1 - Supraventricular tachycardia (ICD-10) Surgical History Status post cholecystectomy ?Z90.49 - Acquired absence of other specified parts of digestive tract (ICD- 10) S/P laparoscopic cholecystectomy (10/13/22) ?Z90.49 - Acquired absence of other specified parts of digestive tract (ICD- 10) H/O: hysterectomy (1992) ?Z90.710 - Acquired absence of both cervix and uterus (ICD-10) H/O lumbar discectomy (~1974) ?Z98.890 - Other specified postprocedural states (ICD-10) Status post open reduction with internal fixation (ORIF) of fracture of ankle (2005) ?Z98.890 - Other specified postprocedural states (ICD-10) ?Z87.81 - Personal history of (healed) traumatic fracture (ICD-10) History of neck surgery (02/17/08) ?Z98.890 - Other specified postprocedural states (ICD-10) Family History Father Stroke, Onset Age: 65 Mother Cancer of neck Sister Type 2 diabetes mellitus Social History Narrative: Recent (Aug). 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 Lives alone in [place]. Three adult children. Nonsmoker. Rare alcohol use. exercise 2/ week walks 45 min, pool exercise 3 times weekly Highest level of school completed/degree received: high school graduate Smoking Status: Never smoker Do you use any of these nicotine containing products: E-Cigarettes Second hand tobacco smoke exposure: Yes How often do you have a drink containing alcohol: monthly or less Alcohol type: beer, wine and hard liquor How many standard drinks containing alcohol do you have on a typical day: 1 or 2 How often do you have six or more drinks on one occasion: Never AUDIT-C Alcohol total score: 1 Non-prescribed substance use: denies use Caffeine: Yes (coffee, 2 cups) Little interest or pleasure in doing things: several days Feeling down, depressed, or hopeless: several days service: No Exam Narrative: Exam Narrative: Constitutional: Appears well-developed and well-nourished. Alert. Conversant. Non toxic. HENT: Head: Atraumatic. Nose: Nose normal. Mouth/Throat: Oral mucosa is clear. Mucous membranes are a bit dry but not desiccated or cracked.. no trismus. Pharynx normal. Eyes: Conjunctivae normal. EOM normal. Pupils equal, round, and reactive to light. No scleral icterus. Neck: Normal range of motion. Neck supple. No tracheal deviation present. Cardiovascular: Normal rate, regular rhythm. No gallop. No friction rub. No murmur heard. Symmetric radial artery pulses Pulmonary/Chest: Effort normal. No stridor. No respiratory distress. No wheezes. No rales. No rhonchi . No tenderness. Abdominal: Soft. Bowel sounds normal. No distension. No mass. No tenderness. No rebound. No guarding. Musculoskeletal: RUE: Normal range of motion. No tenderness. No deformity LUE: Normal range of motion. No tenderness. No deformity RLE: Normal range of motion. No edema. No tenderness. No deformity LLE: Normal range of motion. No edema. No tenderness. No deformity Lymph: No cervical adenopathy. Neurological: Alert and oriented to person, place, and time. Normal strength. CN II-VII intact. No sensory deficit. GCS eye subscore is 4. GCS verbal subscore is 5. GCS motor subscore is 6. Normal coordination Skin: There is a 1 x 4 mm scaly lesion on her left cheek, lateral to her eye. This could be suspicious for possible basal cell. No evidence for any bacterial superinfection. Advised dermatology follow-up for biopsy soon as possible. She will call to schedule that appointment. Otherwise, Skin is warm and dry. No rash noted. No pallor. Normal capillary refill. Psychiatric: Normal mood. Normal affect. Const: Vital Signs, click to edit/add: Vital Signs - 24 hr 08/02/23 12:07 08/02/23 13:12 08/02/23 13:15 Temperature 96.9 F L Pulse Rate 72 Pulse Rate [Pulse Oximeter] 70 Respiratory Rate 16 Blood Pressure [Ri ght Upper Arm] 141/64 H 132/86 Pulse Oximetry 98 83 L Oxygen Delivery Me thod Room Air 08/02/23 13:15 08/02/23 13:30 Temperature Pulse Rate 70 71 Pulse Rate [Pulse Oximeter] Respiratory Rate Blood Pressure [Ri ght Upper Arm] Pulse Oximetry 100 100 Oxygen Delivery Me thod Course Reevaluation(s) Reevaluation #1: Recheck-feeling better. Has tolerated p.o. challenge with liquid. Completed IV fluid bolus. She has been here in the ER for a couple of hours and feeling much better. Less dizzy and weak. She did have 1 further episode of watery diarrhea since she arrived. No further nausea or vomiting. Discussed options for ongoing management. At this point suspect viral illness but would need supportive care and hydration. We discussed hospitalization versus discharge home. She feels comfortable to discharge home and requests that. Vital Signs Vital signs: Initial Vital Signs Temperature 96.9 F L 08/02/23 12:07 Temperature Source Temporal Artery Scan 08/02/23 12:07 Pulse Rate 70 08/02/23 12:07 Respiratory Rate 16 08/02/23 12:07 Blood Pressure 141/64 H 08/02/23 12:07 Blood Pressure Mean 89 08/02/23 12:07 Blood Pressure Position Sitting 08/02/23 12:07 Pulse Oximetry 98 08/02/23 12:07 Oxygen Delivery Method Room Air 08/02/23 12:07 Vital Signs Temperature 96.9 F L 08/02/23 12:07 Pulse Rate 70 08/02/23 12:07 Respiratory Rate 16 08/02/23 12:07 Blood Pressure 141/64 H 08/02/23 12:07 Pulse Oximetry 98 08/02/23 12:07 Oxygen Delivery Method Room Air 08/02/23 12:07 Temperature 96.9 F L 08/02/23 12:07 Pulse Rate 71 08/02/23 13:30 Respiratory Rate 16 08/02/23 12:07 Blood Pressure 132/86 08/02/23 13:15 Pulse Oximetry 100 08/02/23 13:30 Oxygen Delivery Method Room Air 08/02/23 12:07 Medical Decision Making [facility] Narrative Medical decision making narrative: This patient presents with vomiting and diarrhea that began early this morning and persisted throughout the morning until she arrived here by EMS.. The patient's symptoms and exam could be consistent with a viral GI infection. There is no high fever, severe pain, bilious or bloody emesis, blood or mucous in the stool, severe abdominal pain, or other concerning signs for a bacterial infection. No recent travel or high risk exposure for baceraial pathogen. No recent antibiotics or risk factors for C. diff. I don't see any evidence for appendicitis, bowel obstruction, abscess, bowel perforation, or other surgical emergency. Labs show no concerning electrolyte disturbance or renal failure. After meds given the patient is feeling better. At this point, the patient is non-septic appearing and well hydrated.I think the patient can be managed as an outpatient. We have discussed oral rehydration strategies. They understand and can perform the needed interventions at home. I have provided a prescription for antiemetics to facilitate oral hydration (Zofran ODT ) and Imodium for diarrhea). We have discussed the signs and symptoms of worsening dehydration. They understand the need for immediate reevaluation if any of these symptoms occur. They are also directed to obtain close outpatient follow up within 1-2 days. Lab Data Labs: Lab Results 08/02/23 Range/Units 13:04 WBC 11.72 H (4.50-11.00) K/uL RBC 4.07 (4.00-5.20) m/uL Hgb 11.6 L (12.0-16.0) gm/dL Hct 36.8 (33.0-51.0) % MCV 90 (80-100) fL MCH 29 (26-34) pg MCHC 32 (32-36) gm/dL RDW Coeff of [place] 13.3 (11.5-15.5) % Plt Count 313 (140-440) K/uL Neut % (Auto) 81.8 H (42.0-72.0) % Lymph % (Auto) 12.5 L (20-44) % [place] % (Auto) 5.0 (0.0-11.0) % Eos % (Auto) 0.3 (0.0-7.0) % Baso % (Auto) 0.3 (0.0-3.0) % Neut # (Auto) 9.60 H (1.7-7.0) K/uL Lymph # (Auto) 1.50 (0.90-2.90) K/uL [place] # (Auto) 0.60 (0.00-0.90) K/UL Eos # (Auto) 0.00 (0.00-0.50) K/uL Baso # (Auto) 0.00 (0.00-0.30) K/uL Abs Immat Gran (auto) 0.00 (0.00-0.30) K/uL Imm/Tot Granulo (auto) 0.1 % Sodium 140 (135-149) mmol/L Potassium 4.3 (3.6-5.1) mmol/L Chloride 106 (96-114) mmol/L Carbon Dioxide 23 (20-32) mmol/L Anion Gap 11 (7-15) mEq/L BUN 23 (7-30) mg/dL Creatinine 0.6 (0.5-1.5) mg/dL Estimated Creat Clear 41.72 Estimated GFR 92 ml/min Glucose 117 H (60-115) mg/dL Lactate 1.4 (0.5-1.9) mmol/L Calcium 9.3 (8.4-10.6) mg/dL Discharge Plan Discharge Clinical Impression: Vomiting and diarrhea, Dehydration Patient Disposition: Home, Self-Care Condition: Stable Instructions: Dehydration (DC), Acute Nausea and Vomiting (DC), Acute Diarrhea (ED) Additional Instructions: Please try to take plenty of fluids and stay hydrated. Use nausea medicine and diarrhea medicine if needed at home to help manage your symptoms. As we discussed, If you have worsening dehydration or weakness, uncontrolled vomiting or diarrhea, high fever, bloody or black stools, abdominal pain, or any concerns please come back to the ER right away to be rechecked. If you are not completely improved within 1-2 days, please be rechecked by medical provider. Prescriptions: New ondansetron 4 mg tablet,disintegrating 4 mg PO Q8H PRN (Reason: nausea and vomiting) Qty: 10 0RF loperamide [Imodium A-D] 2 mg tablet 2 mg PO Q4H PRN (Reason: loose stool) Qty: 14 0RF No Action fluoxetine 20 mg capsule 20 mg PO DAILY Qty: 90 4RF hydrochlorothiazide 25 mg tablet 25 mg PO DAILY Qty: 90 4RF losartan 50 mg tablet 50 mg PO BID Qty: 180 4RF metoprolol succinate 100 mg tablet extended release 24 hr 100 mg PO DAILY Qty: 90 4RF omeprazole 20 mg capsule,delayed release(DR/EC) 20 mg PO DAILY Qty: 90 4RF rosuvastatin [Crestor] 20 mg tablet 20 mg PO DAILY Qty: 90 3RF Xarelto 20 mg tablet 20 mg PO QDAY Rx Instructions: must administer with evening meal Follow Up/Referrals: Kecia Toscano MD [Primary Care Provider] - Stand Alone Forms: [email or web address] Info Instructions
[2023-08-02] MEDS: LOPERAMIDE HCL 2 MG CAPSULE 4 MG PO (12:55)
[2023-08-02 13:09] LABS: Lactate* 1.4 mmol/L (0.5-1.9)
[2023-08-02 13:12] VITALS: PULSE 72; O2SAT 83
[2023-08-02 13:13] LABS: Basophils Percent Auto 0.3 % (0.0-3.0); Eosinophils Percent Auto 0.3 % (0.0-7.0); Hematocrit 36.8 % (33.0-51.0); Hemoglobin* 11.6 gm/dL (12.0-16.0); Immature Granulocytes Pct Auto 0.1 %; Lymphocytes Percent Auto 12.5 % (20-44); Mean Corpuscular HGB Conc 32 gm/dL (32-36); Mean Corpuscular Hemoglobin 29 pg (26-34); Mean Corpuscular Volume 90 fL (80-100); Neutrophils Percent Auto 81.8 % (42.0-72.0); Platelet Count* 313 K/uL (140-440); RDW Coefficient of Variation % 13.3 % (11.5-15.5); Red Blood Count 4.07 m/uL (4.00-5.20); White Blood Count* 11.72 K/uL (4.50-11.00)
[2023-08-02 13:14] LABS: Slide Review Reflex No
[2023-08-02] MEDS: 0.9 % SODIUM CHLORIDE 1000 ml 1,000 ML IV (13:14)
[2023-08-02 13:15] VITALS: BP 132/86; PULSE 70; O2SAT 100
[2023-08-02 13:28] LABS: Chloride* 106 mmol/L (96-114); Potassium* 4.3 mmol/L (3.6-5.1); Sodium* 140 mmol/L (135-149)
[2023-08-02 13:30] VITALS: PULSE 71; O2SAT 100
[2023-08-02 13:31] LABS: Anion Gap 11 mEq/L (7-15); Carbon Dioxide* 23 mmol/L (20-32); Creatinine* 0.6 mg/dL (0.5-1.5); Est. Creatinine Clearance* 41.72; Estimated Glomerular Filt Rate 92 ml/min
[2023-08-02 13:32] LABS: Blood Urea Nitrogen* 23 mg/dL (7-30); Calcium* 9.3 mg/dL (8.4-10.6); Glucose* 117 mg/dL (60-115)
[2023-08-02 14:02] VITALS: BP 126/59
== END 2023-08-02 15:17 | disposition home or self-care (01) ==
PROVIDERS: Emergency Provider Emergency Medicine; PCP Family Medicine
DX: R19.7 Diarrhea, unspecified (principal); R11.10 Vomiting, unspecified; E86.0 Dehydration
CPT/HCPCS: 36415; 80048; 83605; 85025; 99283; A9270; J7030

== ENCOUNTER 2023-09-12 08:40 | Inpatient (IN) | payer MEDICARE, OTHER, SELFPAY ==
[2023-09-12] VITALS (43 sets, daily range): BP systolic 89–127; BP diastolic 42–64; PULSE 64–101; RESP 18–24; TEMP 36.1–37.1; O2SAT 90–98; BMI 33.3; BMI 39.2
--- NOTE | 2023-09-12 09:01 | ED_ITS ---
HPI - General Adult General Chief complaint: Nausea/Vomiting Stated complaint: nausea, vomiting Time Seen by Provider: 09/12/23 08:43 History of Present Illness HPI narrative: This 77-year-old female comes in by ambulance reporting increased urinary frequency in the suspicion of urinary tract infection. She also reports some pain in her low back. She does not normally have back pain and does not report any strenuous activity or injury event except she did slip when getting out of b ed and bumped her head on a nightstand. She does not complain of any headache or injury from that event. These symptoms began yesterday. She does report some nausea and vomiting and did take a nausea medicine which brought resolution of those symptoms. Related Data Home Medications Medication Instructions Recorded Confirmed rivaroxaban 20 mg tablet (Xarelto) 20 mg PO QDAY 06/03/23 09/12/23 Previous Rx's Medication Instructions Recorded fluoxetine 20 mg capsule 20 mg PO DAILY #90 caps 12/04/22 hydrochlorothiazide 25 mg tablet 25 mg PO DAILY #90 tabs 12/04/22 losartan 50 mg tablet 50 mg PO BID #180 tabs 12/04/22 metoprolol succinate 100 mg 100 mg PO DAILY #90 tabs 12/04/22 tablet,extended release 24 hr omeprazole 20 mg capsule,delayed 20 mg PO DAILY #90 caps 12/04/22 release rosuvastatin 20 mg tablet (Crestor) 20 mg PO DAILY #90 tabs 06/03/23 loperamide 2 mg tablet (Imodium 2 mg PO Q4H PRN loose stool #14 08/02/23 A-D) tabs ondansetron 4 mg disintegrating 4 mg PO Q8H PRN nausea and 08/02/23 tablet vomiting #10 tabs estradiol 0.01% (0.1 mg/gram) 1 g vaginal 2XW #42.5 grams 08/19/23 vaginal cream (Estrace) cephalexin 500 mg capsule 500 mg PO TID #15 caps 09/12/23 Allergies Allergy/AdvReac Type Severity Reaction Status Date / Time Sulfa (Sulfonamide Allergy Mild Rash Verified 08/19/23 11:02 Antibiotics) Review of Systems Status of ROS: Reports: 10 or more systems reviewed and unremarkable except as noted in History and below Narrative: Constitutional: No fevers, no weight gain or loss. Eyes: No discharge. No vision changes. HENT: No congestion, no sore throat, no ear pain. Cardiovascular: No chest pain, no palpitations. Respiratory: No shortness of breath, no wheezes, no cough. Gastrointestinal: No abdominal pain, no vomiting, no diarrhea. Genitourinary: Increased urinary frequency. Musculoskeletal: Normal range of motion. Low back pain. Skin: No rashes, no pruritis. Neurological: No dizziness, weakness, sensory change, speech change. Endo/Heme/Allergies: No bruising or bleeding. No polydipsia. Pysch: no suicidality, no anxiety, no insomnia. All other systems reviewed and are negative. [facility] Medical History Recurrent deep vein thrombosis (DVT) ?I82.409 - Acute embolism and thrombosis of unspecified deep veins of unspecified lower extremity (ICD-10) Elevated liver enzymes ?R74.8 - Abnormal levels of other serum enzymes (ICD-10) Choledocholithiasis ?K80.50 - Calculus of bile duct without cholangitis or cholecystitis without obstruction (ICD-10) Obesity (BMI 30.0-34.9) ?E66.9 - Obesity, unspecified (ICD-10) Benign positional vertigo ?H81.10 - Benign paroxysmal vertigo, unspecified ear (ICD-10) Chronic neck pain ?M54.2 - Cervicalgia (ICD-10) ?G89.29 - Other chronic pain (ICD-10) Elevated glucose (10/12/22) ?R73.09 - Other abnormal glucose (ICD-10) Epistaxis, recurrent (~09/2022) ?R04.0 - Epistaxis (ICD-10) Bereavement, uncomplicated ?Z63.4 - Disappearance and of family member (ICD-10) Dyslipidemia ?E78.5 - Hyperlipidemia, unspecified (ICD-10) Chronic anticoagulation (~08/2022) ?Z79.01 - senior living (current) use of anticoagulants (ICD-10) Granulomatous lung disease ?J84.10 - Pulmonary fibrosis, unspecified (ICD-10) Degenerative arthritis of ankle ?M19.079 - Primary osteoarthritis, unspecified ankle and foot (ICD-10) Hypertension ?I10 - Essential (primary) hypertension (ICD-10) Paroxysmal SVT (supraventricular tachycardia) (~2016) ?I47.1 - Supraventricular tachycardia (ICD-10) Surgical History Status post cholecystectomy ?Z90.49 - Acquired absence of other specified parts of digestive tract (ICD- 10) S/P laparoscopic cholecystectomy (10/13/22) ?Z90.49 - Acquired absence of other specified parts of digestive tract (ICD- 10) H/O: hysterectomy (1992) ?Z90.710 - Acquired absence of both cervix and uterus (ICD-10) H/O lumbar discectomy (~1974) ?Z98.890 - Other specified postprocedural states (ICD-10) Status post open reduction with internal fixation (ORIF) of fracture of ankle (2005) ?Z98.890 - Other specified postprocedural states (ICD-10) ?Z87.81 - Personal history of (healed) traumatic fracture (ICD-10) History of neck surgery (02/17/08) ?Z98.890 - Other specified postprocedural states (ICD-10) Family History Father Stroke, Onset Age: 65 Mother Cancer of neck Sister Type 2 diabetes mellitus Social History Narrative: Recent (Aug). 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 Lives alone in [place]. Three adult children. Nonsmoker. Rare alcohol use. exercise 2/ week walks 45 min, pool exercise 3 times weekly Highest level of school completed/degree received: high school graduate Smoking Status: Never smoker Do you use any of these nicotine containing products: E-Cigarettes Second hand tobacco smoke exposure: Yes How often do you have a drink containing alcohol: monthly or less Alcohol type: beer, wine and hard liquor How many standard drinks containing alcohol do you have on a typical day: 1 or 2 How often do you have six or more drinks on one occasion: Never AUDIT-C Alcohol total score: 1 Non-prescribed substance use: denies use Caffeine: Yes (coffee, 2 cups) Little interest or pleasure in doing things: several days Feeling down, depressed, or hopeless: several days service: No Exam Narrative: Exam Narrative: Constitutional: Well-developed, well-nourished, no acute distress. HEENT: Normocephalic, atraumatic. Neck: Normal range of motion. Nontender. Supple. Heart: Regular. No murmurs. Normal rate. Intact distal pulses. Lungs: Clear to auscultation. No chest discomfort. No wheezes, rhonchi, or rales. Abdomen: Normal bowel sounds. Nontender. No rebound tenderness. Genitalia: Deferred. Back: No midline tenderness. Normal range of motion. Extremities: Normal range of motion. No injury. Skin: Intact. No rash. Warm. No erythema or pallor. Neurologic: No altered sensation. No weakness. Alert and oriented. Psychiatric: No suicidality. No anxiety or depression. No insomnia. Nursing notes and vitals signs are reviewed. Const: Vital Signs, click to edit/add: Vital Signs - 24 hr 09/12/23 08:45 09/12/23 08:45 09/12/23 08:46 Temperature 97 F L Pulse Rate 101 H 99 Pulse Rate [Pulse Oximeter] 100 Respiratory Rate 18 Blood Pressure 107/54 L Blood Pressure [Ri ght Upper Arm] 107/54 L Pulse Oximetry 93 94 93 Oxygen Delivery Me thod Room Air 09/12/23 09:00 09/12/23 09:01 09/12/23 09:02 Temperature Pulse Rate 98 97 97 Pulse Rate [Pulse Oximeter] Respiratory Rate Blood Pressure 95/58 L Blood Pressure [Ri ght Upper Arm] Pulse Oximetry 94 92 93 Oxygen Delivery Me thod 09/12/23 09:15 09/12/23 09:30 09/12/23 09:45 Temperature Pulse Rate 92 89 90 Pulse Rate [Pulse Oximeter] Respiratory Rate Blood Pressure Blood Pressure [Ri ght Upper Arm] Pulse Oximetry 90 91 91 Oxygen Delivery Me thod 09/12/23 10:00 09/12/23 10:01 09/12/23 10:24 Temperature Pulse Rate 88 90 93 Pulse Rate [Pulse Oximeter] Respiratory Rate Blood Pressure 94/50 L Blood Pressure [Ri ght Upper Arm] Pulse Oximetry 92 91 94 Oxygen Delivery Me thod 09/12/23 10:25 09/12/23 10:30 09/12/23 10:31 Temperature Pulse Rate 81 85 Pulse Rate [Pulse Oximeter] Respiratory Rate Blood Pressure 127/58 L 104/60 Blood Pressure [Ri ght Upper Arm] Pulse Oximetry 94 93 Oxygen Delivery Me thod 09/12/23 10:32 09/12/23 10:45 09/12/23 11:00 Temperature Pulse Rate 80 80 78 Pulse Rate [Pulse Oximeter] Respiratory Rate Blood Pressure Blood Pressure [Ri ght Upper Arm] Pulse Oximetry 94 92 90 Oxygen Delivery Me thod 09/12/23 11:01 09/12/23 11:15 Temperature Pulse Rate 79 75 Pulse Rate [Pulse Oximeter] Respiratory Rate Blood Pressure 103/51 L Blood Pressure [Ri ght Upper Arm] Pulse Oximetry 90 91 Oxygen Delivery Me thod Course Vital Signs Vital signs: Initial Vital Signs Temperature 97 F L 09/12/23 08:45 Temperature Source Temporal Artery Scan 09/12/23 08:45 Pulse Rate 101 H 09/12/23 08:45 Respiratory Rate 18 09/12/23 08:45 Blood Pressure 107/54 L 09/12/23 08:45 Blood Pressure Mean 71 09/12/23 08:45 Blood Pressure Position Supine 09/12/23 08:45 Pulse Oximetry 93 09/12/23 08:45 Oxygen Delivery Method Room Air 09/12/23 08:45 Vital Signs Temperature 97 F L 09/12/23 08:45 Pulse Rate 101 H 09/12/23 08:45 Respiratory Rate 18 09/12/23 08:45 Blood Pressure 107/54 L 09/12/23 08:45 Pulse Oximetry 93 09/12/23 08:45 Oxygen Delivery Method Room Air 09/12/23 08:45 Temperature 97 F L 09/12/23 08:45 Pulse Rate 75 09/12/23 11:15 Respiratory Rate 18 09/12/23 08:45 Blood Pressure 103/51 L 09/12/23 11:01 Pulse Oximetry 91 09/12/23 11:15 Oxygen Delivery Method Room Air 09/12/23 08:45 Medications Administered Medications: Discontinued Medications Generic Name Dose Route Start Last Admin Trade Name Freq PRN Reason Stop Dose Admin Sodium Chloride 1,000 mls @ 1,000 mls/hr 09/12/23 10:15 09/12/23 10:31 0.9 % Sodium Chloride 1000 Ml IV 09/12/23 11:14 1,000 mls/hr .Q1H FLAVIA Administration Medical Decision Making MDM Narrative Medical decision making narrative: This patient comes in reporting some back pain and urine frequency. An IV was established and labs are acquired. The patient did receive a L of normal saline intravenously. Labs returned with essentially reassuring findings. She does have a slightly elevated white count in her blood and does have sign of urinary tract infection on urinalysis. The patient did receive a g of Rocephin intravenously. She is okay to be discharged home and received a prescription for Keflex. Lab Data Labs: Lab Results 09/12/23 09/12/23 Range/Units 08:58 10:20 WBC 11.39 H (4.50-11.00) K/uL RBC 3.88 L (4.00-5.20) m/uL Hgb 11.2 L (12.0-16.0) gm/dL Hct 35.4 (33.0-51.0) % MCV 91 (80-100) fL MCH 29 (26-34) pg MCHC 32 (32-36) gm/dL RDW Coeff of [place] 13.1 (11.5-15.5) % Plt Count 310 (140-440) K/uL Neut % (Auto) 96.4 H (42.0-72.0) % Lymph % (Auto) 2.3 L (20-44) % [place] % (Auto) 0.6 (0.0-11.0) % Eos % (Auto) 0.1 (0.0-7.0) % Baso % (Auto) 0.2 (0.0-3.0) % Neut # (Auto) 11.00 H (1.7-7.0) K/uL Lymph # (Auto) 0.30 L (0.90-2.90) K/uL [place] # (Auto) 0.10 (0.00-0.90) K/UL Eos # (Auto) 0.00 (0.00-0.50) K/uL Baso # (Auto) 0.00 (0.00-0.30) K/uL Abs Immat Gran (auto) 0.00 (0.00-0.30) K/uL Imm/Tot Granulo (auto) 0.4 % Sodium 140 (135-149) mmol/L Potassium 3.1 L (3.6-5.1) mmol/L Chloride 105 (96-114) mmol/L Carbon Dioxide 23 (20-32) mmol/L Anion Gap 12 (7-15) mEq/L BUN 25 (7-30) mg/dL Creatinine 1.2 (0.5-1.5) mg/dL Estimated Creat Clear 34.77 Estimated GFR 46 ml/min Glucose 123 H (60-115) mg/dL Calcium 8.9 (8.4-10.6) mg/dL Urine Color Yellow (Yellow) Urine Appearance Cloudy A (Clear) Urine pH 5.0 (5.0-8.5) Ur Specific [place] 1.015 (1.000-1.030) Urine Protein 1+ A (Negative) Urine Glucose (UA) Negative (Negative) Urine Ketones Negative (Negative) Urine Blood 1+ A (Negative) Urine Nitrite Negative (Negative) Urine Bilirubin Negative (Negative) Urine Urobilinogen 1.0 (0.2-1.0) Ur Leukocyte Esterase 1+ A (Negative) Urine RBC 5-10 A (0-2) Urine WBC 50-100 A (0-5) Ur Squamous Epith Cells Few (None-Few) Urine Bacteria Many A (None) Discharge Plan Discharge Clinical Impression: Urinary tract infection Patient Disposition: Home, Self-Care Condition: Stable Additional Instructions: Take medication as prescribed. Activity as tolerated. Follow up with MD return if worsening. Prescriptions: New cephalexin 500 mg capsule 500 mg PO TID Qty: 15 0RF No Action fluoxetine 20 mg capsule 20 mg PO DAILY Qty: 90 4RF hydrochlorothiazide 25 mg tablet 25 mg PO DAILY Qty: 90 4RF losartan 50 mg tablet 50 mg PO BID Qty: 180 4RF metoprolol succinate 100 mg tablet extended release 24 hr 100 mg PO DAILY Qty: 90 4RF omeprazole 20 mg capsule,delayed release(DR/EC) 20 mg PO DAILY Qty: 90 4RF rosuvastatin [Crestor] 20 mg tablet 20 mg PO DAILY Qty: 90 3RF Xarelto 20 mg tablet 20 mg PO QDAY Rx Instructions: must administer with evening meal estradiol [Estrace] 0.01 % (0.1 mg/gram) cream 1 g vaginal 2XW Qty: 42.5 2RF Rx Instructions: Nightly for 2 weeks. Then twice a week. ondansetron 4 mg tablet,disintegrating 4 mg PO Q8H PRN (Reason: nausea and vomiting) Qty: 10 0RF loperamide [Imodium A-D] 2 mg tablet 2 mg PO Q4H PRN (Reason: loose stool) Qty: 14 0RF Follow Up/Referrals: Kecia Toscano MD [Primary Care Provider] - Stand Alone Forms: Anywhere to Go Info Instructions
[2023-09-12 09:26] LABS: Chloride* 105 mmol/L (96-114); Potassium* 3.1 mmol/L (3.6-5.1); Sodium* 140 mmol/L (135-149)
[2023-09-12 09:29] LABS: Anion Gap 12 mEq/L (7-15); Blood Urea Nitrogen* 25 mg/dL (7-30); Carbon Dioxide* 23 mmol/L (20-32); Creatinine* 1.2 mg/dL (0.5-1.5); Est. Creatinine Clearance* 34.77; Estimated Glomerular Filt Rate 46 ml/min; Glucose* 123 mg/dL (60-115)
[2023-09-12 09:30] LABS: Calcium* 8.9 mg/dL (8.4-10.6)
[2023-09-12 09:31] LABS: Basophils Percent Auto 0.2 % (0.0-3.0); Eosinophils Percent Auto 0.1 % (0.0-7.0); Hematocrit 35.4 % (33.0-51.0); Hemoglobin* 11.2 gm/dL (12.0-16.0); Immature Granulocytes Pct Auto 0.4 %; Lymphocytes Percent Auto 2.3 % (20-44); Mean Corpuscular HGB Conc 32 gm/dL (32-36); Mean Corpuscular Hemoglobin 29 pg (26-34); Mean Corpuscular Volume 91 fL (80-100); Monocytes Percent Auto 0.6 % (0.0-11.0); Neutrophils Percent Auto 96.4 % (42.0-72.0); Platelet Count* 310 K/uL (140-440); RDW Coefficient of Variation % 13.1 % (11.5-15.5); Red Blood Count 3.88 m/uL (4.00-5.20); White Blood Count* 11.39 K/uL (4.50-11.00)
[2023-09-12 09:32] LABS: Slide Review Reflex No
[2023-09-12 10:31] LABS: Appearance Urine Cloudy (Clear); Bilirubin Urine Negative (Negative); Blood Urine 1+ (Negative); Color Urine Yellow (Yellow); Glucose Urine Negative (Negative); Ketones Urine Negative (Negative); Leukocyte Esterase Urine 1+ (Negative); Nitrite Urine Negative (Negative); Protein Urine 1+ (Negative); Specific Gravity Urine 1.015 (1.000-1.030)
[2023-09-12] MEDS: 0.9 % SODIUM CHLORIDE 1000 ml 1,000 ML IV ×2 (10:31→13:10)
[2023-09-12 10:43] LABS: Bacteria Urine Many; Squamous Epithelial Cell Urine Few (None-Few); WBC Urine 50-100 (0-5)
[2023-09-12] MEDS: cefTRIAXone 1 GM in 0.9 % SODIUM CHLORIDE Mini-bag 100 ML IVPB ×2 (11:26→16:59)
--- NOTE | 2023-09-12 12:38 | ED.NURSE ---
notified of pt lower-trending BPs.
[2023-09-12 13:11] LABS: Lactate* 2.6 mmol/L (0.5-1.9)
--- NOTE | 2023-09-12 13:20 | ED.NURSE ---
Pt c/o worsening head pain where she struck her head when she fell at home prior to arrival. MD Conteh notified.
--- NOTE | 2023-09-12 13:29 | CRLHL7_ITS ---
For Patients: As a result of the Century Cures Act, medical imaging exams and procedure reports are released immediately into your electronic medical record. You may view this report before your referring provider. If you have questions, please contact your health care provider. INDICATION: Head trauma. TECHNIQUE: CT of the head without contrast. Coronal and sagittal reformats are included. COMPARISON: None. FINDINGS: No acute intracranial hemorrhage. No mass effect or midline shift. No hydrocephalus or extra-axial collections. White matter is within normal limits for age. No acute osseous abnormalities. Mastoid air cells and paranasal sinuses are clear. Normal soft tissues. IMPRESSION: IMPRESSION: 1. No acute intracranial abnormalities. Please note that all CT scans at this facility use dose modulation, iterative reconstruction, and/or weight-based dosing when appropriate to reduce radiation dose to as low as reasonably achievable. Dictated by Adria Garcia MD @ 09/12/2023 2:08:22 PM (Electronically Signed)
[2023-09-12 14:36] LABS: C Reactive Protein* 4.8 mg/dL (0.5-1.0)
--- NOTE | 2023-09-12 14:40 | CRLHL7_ITS ---
For Patients: As a result of the Cures Act, medical imaging exams and procedure reports are released immediately into your electronic medical record. You may view this report before your referring provider. If you have questions, please contact your health care provider. INDICATION: Cough. Sepsis. TECHNIQUE: PA and lateral chest x-ray. FINDINGS: Granulomatous changes in each lung particularly the lung bases. Normal heart size. No pleural effusion. The included skeleton demonstrates mild degenerative change of the AC joints. Surgical clips low left neck. IMPRESSION: No acute cardiopulmonary process identified. Dictated by Pedrito Barnes MD @ 09/12/2023 5:31:45 PM (Electronically Signed)
[2023-09-12] MEDS: OXYCODONE 5 MG TABLET PO (14:56)
--- NOTE | 2023-09-12 15:10 | PM.IMHP1 ---
Hospitalist- H&P: HPI History of Present Illness Time Seen by Provider: 14:15 Date Seen: 09/12/23 Chief complaint: nausea, vomiting Narrative: Qi Telles is a 77 year old female on chronic Xarelto for history of recurrent DVT who has been feeling unwell yesterday and today, fell due to dizziness this morning, hitting her head and therefore came to the emergency department. She was feeling fine until yesterday when she had low back pain, fatigue, felt chilled, and spent most of the day wrapped up in a blanket on the couch. She noted that her temperature was 102? yesterday. Her urine looked dark, but she did not have any dysuria until today in the emergency department. She normally drinks a lot of water and was able to continue that yesterday despite not feeling well. This morning she woke at 4:00 a.m. with shaking chills. She felt dizzy and lightheaded. She got up to use the bathroom but fell, hitting her right forehead on her night stand. She fell to the ground, but did not lose consciousness. She came into the emergency department and started feeling nauseous and having dysuria. She was given something for nausea and feels better now. She does continue to feel somewhat lightheaded and dizzy. She got 2 L of saline in the emergency department along with a dose of Rocephin. Review of Systems Status of ROS: Reports: 10 or more systems reviewed and unremarkable except as noted in History and below Const: Reports: fever, chills and fatigue Eyes: Denies: change in vision or blurry vision ENMT: Denies: throat pain, neck pain or vertigo Cardio: Reports: lightheadedness; Denies: chest pain, palpitations, edema, shortness of breath with exertion or shortness of breath when lying down Resp: Reports: cough; Denies: shortness of breath, wheezing or chest congestion GI: Reports: abdominal pain and nausea; Denies: vomiting, diarrhea, constipation, change in bowel habits or painful bowel movements : Reports: painful urination, urinary frequency, urinary incontinence (chronic), pelvic pain and vaginal dryness; Denies: blood in urine, difficulty voiding, decreased urine ouput, vaginal discharge or vaginal odor Musculo: Reports: back pain (low back); Denies: neck pain Integ/Breast: Denies: rash Neuro: Reports: headache and dizziness; Denies: numbness in extremities, weakness in extremities, lack of coordination, vertigo, confusion, behavioral changes or slurred speech Endo: Reports: fatigue; Denies: excessive urination or excessive thirst Allergy/Immuno: Denies: wheezing [facility] Medical History (Updated 09/12/23 @ 15:50 by Maite Germain MD) Chronic anticoagulation (~08/2022) ?Z79.01 - ocean transportation intermediary (current) use of anticoagulants (ICD-10) Erosive vulvitis ?N76.2 - Acute vulvitis (ICD-10) Atrophic vulvovaginitis ?N95.2 - Postmenopausal atrophic vaginitis (ICD-10) History of bone density study (02/2023) ?Z92.89 - Personal history of other medical treatment (ICD-10) Chronic GERD ?K21.9 - Gastro-esophageal reflux disease without esophagitis (ICD-10) Depression (2002) ?F32.A - Depression, unspecified (ICD-10) Venous insufficiency ?I87.2 - Venous insufficiency (chronic) (peripheral) (ICD-10) Recurrent deep vein thrombosis (DVT) ?I82.409 - Acute embolism and thrombosis of unspecified deep veins of unspecified lower extremity (ICD-10) Elevated liver enzymes ?R74.8 - Abnormal levels of other serum enzymes (ICD-10) Choledocholithiasis ?K80.50 - Calculus of bile duct without cholangitis or cholecystitis without obstruction (ICD-10) Obesity (BMI 30.0-34.9) ?E66.9 - Obesity, unspecified (ICD-10) Benign positional vertigo ?H81.10 - Benign paroxysmal vertigo, unspecified ear (ICD-10) Chronic neck pain ?M54.2 - Cervicalgia (ICD-10) ?G89.29 - Other chronic pain (ICD-10) Elevated glucose (10/12/22) ?R73.09 - Other abnormal glucose (ICD-10) Epistaxis, recurrent (~09/2022) ?R04.0 - Epistaxis (ICD-10) Bereavement, uncomplicated ?Z63.4 - Disappearance and of family member (ICD-10) Dyslipidemia ?E78.5 - Hyperlipidemia, unspecified (ICD-10) Granulomatous lung disease ?J84.10 - Pulmonary fibrosis, unspecified (ICD-10) Degenerative arthritis of ankle ?M19.079 - Primary osteoarthritis, unspecified ankle and foot (ICD-10) Hypertension ?I10 - Essential (primary) hypertension (ICD-10) Paroxysmal SVT (supraventricular tachycardia) (~2016) ?I47.1 - Supraventricular tachycardia (ICD-10) Surgical History Status post cholecystectomy ?Z90.49 - Acquired absence of other specified parts of digestive tract (ICD-10) S/P laparoscopic cholecystectomy (10/13/22) ?Z90.49 - Acquired absence of other specified parts of digestive tract (ICD-10) H/O: hysterectomy (1992) ?Z90.710 - Acquired absence of both cervix and uterus (ICD-10) H/O lumbar discectomy (~1974) ?Z98.890 - Other specified postprocedural states (ICD-10) Status post open reduction with internal fixation (ORIF) of fracture of ankle (2005) ?Z98.890 - Other specified postprocedural states (ICD-10) ?Z87.81 - Personal history of (healed) traumatic fracture (ICD-10) History of neck surgery (02/17/08) ?Z98.890 - Other specified postprocedural states (ICD-10) Family History Father Stroke, Onset Age: 65 Mother Cancer of neck Sister Type 2 diabetes mellitus Social History (Updated 09/12/23 @ 15:24 by Maite Germain MD) Narrative: (Aug). 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 Lives alone in skilled nursing in [place]. Three adult children. Son and 2 of patient's sister also live in [place], 2 brothers live in [place]. Nonsmoker. Rare alcohol use, a couple of times a year. exercise 2/ week walks 45 min, pool exercise 3 times weekly. Highest level of school completed/degree received: high school graduate Smoking Status: Never smoker Do you use any of these nicotine containing products: E-Cigarettes Second hand tobacco smoke exposure: Yes How often do you have a drink containing alcohol: monthly or less Alcohol type: beer, wine and hard liquor How many standard drinks containing alcohol do you have on a typical day: 1 or 2 How often do you have six or more drinks on one occasion: Never AUDIT-C Alcohol total score: 1 Non-prescribed substance use: denies use Caffeine: Yes (coffee, 2 cups) Little interest or pleasure in doing things: several days Feeling down, depressed, or hopeless: several days service: No Meds Home Medications and Allergies Home Medications Medication Instructions Recorded Confirmed Type rivaroxaban 20 mg tablet (Xarelto) 20 mg PO QDAY 06/03/23 09/12/23 History Home Medication Comments: Fluoxetine 20 mg daily Metoprolol XL 100 mg daily Hydrochlorothiazide 25 mg daily Losartan 50 mg twice a day Omeprazole 20 mg daily Rosuvastatin 20 mg nightly Hydrocortisone 2.5% cream and ketoconazole shampoo 2% for seborrheic dermatitis Allergies Allergy/AdvReac Type Severity Reaction Status Date / Time Sulfa (Sulfonamide Allergy Mild Rash Verified 08/19/23 11:02 Antibiotics) Exam Narrative: Exam Narrative: General: No acute distress. Awake alert oriented x3. HEENT: 0.5 cm by 2 cm area of ecchymosis near the hairline of her right forehead, pupils equally round and reactive to light and accommodation. Oropharynx clear. Mucous membranes are moist. No cervical lymphadenopathy, thyromegaly or carotid bruits. No JVD. Cardiovascular: Regular rate and rhythm. No murmurs, gallops, or rubs. Chest: No increased work of breathing. Clear to auscultation bilaterally. No crackles or wheezes. Abdomen: Bowel sounds present. Obese, soft, nondistended, tender to palpation especially in the right abdomen, no rebound tenderness or guarding. Right flank pain is present without costovertebral angle tenderness. No hepatosplenomegaly or masses. Extremities: No edema, no cyanosis or clubbing. Skin: No jaundice, no pallor, no rashes. Neuro: There are no focal deficits. Romberg is negative. Cranial nerves 2-12 are intact. Extraocular movements are full. No nystagmus. No facial asymmetry. Tongue is midline. Vision is grossly intact. Strength is 5/5 in all 4 extremities. Const: Vital Signs, click to edit/add: Vital Signs - 24 hr 09/12/23 08:45 09/12/23 08:45 09/12/23 08:46 Temperature 97 F L Pulse Rate 101 H 99 Pulse Rate [Pulse Oximeter] 100 Pulse Rate [orthos tatic lying] Pulse Rate [orthos tatic sitting] Pulse Rate [orthos tatic standing] Respiratory Rate 18 Blood Pressure 107/54 L Blood Pressure [Ri ght Arm] Blood Pressure [Ri ght Upper Arm] 107/54 L Blood Pressure [or thostatic lying] Blood Pressure [or thostatic sitting] Blood Pressure [or thostatic standing ] Pulse Oximetry 93 94 93 Oxygen Delivery Me thod Room Air 09/12/23 09:00 09/12/23 09:01 09/12/23 09:02 Temperature Pulse Rate 98 97 97 Pulse Rate [Pulse Oximeter] Pulse Rate [orthos tatic lying] Pulse Rate [orthos tatic sitting] Pulse Rate [orthos tatic standing] Respiratory Rate Blood Pressure 95/58 L Blood Pressure [Ri ght Arm] Blood Pressure [Ri ght Upper Arm] Blood Pressure [or thostatic lying] Blood Pressure [or thostatic sitting] Blood Pressure [or thostatic standing ] Pulse Oximetry 94 92 93 Oxygen Delivery Me thod 09/12/23 09:15 09/12/23 09:30 09/12/23 09:45 Temperature Pulse Rate 92 89 90 Pulse Rate [Pulse Oximeter] Pulse Rate [orthos tatic lying] Pulse Rate [orthos tatic sitting] Pulse Rate [orthos tatic standing] Respiratory Rate Blood Pressure Blood Pressure [Ri ght Arm] Blood Pressure [Ri ght Upper Arm] Blood Pressure [or thostatic lying] Blood Pressure [or thostatic sitting] Blood Pressure [or thostatic standing ] Pulse Oximetry 90 91 91 Oxygen Delivery Me thod 09/12/23 10:00 09/12/23 10:01 09/12/23 10:24 Temperature Pulse Rate 88 90 93 Pulse Rate [Pulse Oximeter] Pulse Rate [orthos tatic lying] Pulse Rate [orthos tatic sitting] Pulse Rate [orthos tatic standing] Respiratory Rate Blood Pressure 94/50 L Blood Pressure [Ri ght Arm] Blood Pressure [Ri ght Upper Arm] Blood Pressure [or thostatic lying] Blood Pressure [or thostatic sitting] Blood Pressure [or thostatic standing ] Pulse Oximetry 92 91 94 Oxygen Delivery Me thod 09/12/23 10:25 09/12/23 10:30 09/12/23 10:31 Temperature Pulse Rate 81 85 Pulse Rate [Pulse Oximeter] Pulse Rate [orthos tatic lying] Pulse Rate [orthos tatic sitting] Pulse Rate [orthos tatic standing] Respiratory Rate Blood Pressure 127/58 L 104/60 Blood Pressure [Ri ght Arm] Blood Pressure [Ri ght Upper Arm] Blood Pressure [or thostatic lying] Blood Pressure [or thostatic sitting] Blood Pressure [or thostatic standing ] Pulse Oximetry 94 93 Oxygen Delivery Me thod 09/12/23 10:32 09/12/23 10:45 09/12/23 11:00 Temperature Pulse Rate 80 80 78 Pulse Rate [Pulse Oximeter] Pulse Rate [orthos tatic lying] Pulse Rate [orthos tatic sitting] Pulse Rate [orthos tatic standing] Respiratory Rate Blood Pressure Blood Pressure [Ri ght Arm] Blood Pressure [Ri ght Upper Arm] Blood Pressure [or thostatic lying] Blood Pressure [or thostatic sitting] Blood Pressure [or thostatic standing ] Pulse Oximetry 94 92 90 Oxygen Delivery Va thod 09/12/23 11:01 09/12/23 11:15 09/12/23 11:30 Temperature Pulse Rate 79 75 78 Pulse Rate [Pulse Oximeter] Pulse Rate [orthos tatic lying] Pulse Rate [orthos tatic sitting] Pulse Rate [orthos tatic standing] Respiratory Rate Blood Pressure 103/51 L Blood Pressure [Ri ght Arm] Blood Pressure [Ri ght Upper Arm] Blood Pressure [or thostatic lying] Blood Pressure [or thostatic sitting] Blood Pressure [or thostatic standing ] Pulse Oximetry 90 91 93 Oxygen Delivery Me thod 09/12/23 11:31 09/12/23 11:32 09/12/23 11:45 Temperature Pulse Rate 81 80 81 Pulse Rate [Pulse Oximeter] Pulse Rate [orthos tatic lying] Pulse Rate [orthos tatic sitting] Pulse Rate [orthos tatic standing] Respiratory Rate Blood Pressure 102/55 L Blood Pressure [Ri ght Arm] Blood Pressure [Ri ght Upper Arm] Blood Pressure [or thostatic lying] Blood Pressure [or thostatic sitting] Blood Pressure [or thostatic standing ] Pulse Oximetry 92 92 92 Oxygen Delivery Me thod 09/12/23 12:00 09/12/23 12:01 09/12/23 12:15 Temperature Pulse Rate 77 79 75 Pulse Rate [Pulse Oximeter] Pulse Rate [orthos tatic lying] Pulse Rate [orthos tatic sitting] Pulse Rate [orthos tatic standing] Respiratory Rate Blood Pressure 99/49 L Blood Pressure [Ri ght Arm] Blood Pressure [Ri ght Upper Arm] Blood Pressure [or thostatic lying] Blood Pressure [or thostatic sitting] Blood Pressure [or thostatic standing ] Pulse Oximetry 92 92 90 Oxygen Delivery Me thod 09/12/23 12:30 09/12/23 12:31 09/12/23 12:32 Temperature Pulse Rate 82 78 79 Pulse Rate [Pulse Oximeter] Pulse Rate [orthos tatic lying] Pulse Rate [orthos tatic sitting] Pulse Rate [orthos tatic standing] Respiratory Rate Blood Pressure 95/45 L Blood Pressure [Ri ght Arm] Blood Pressure [Ri ght Upper Arm] Blood Pressure [or thostatic lying] Blood Pressure [or thostatic sitting] Blood Pressure [or thostatic standing ] Pulse Oximetry 94 93 93 Oxygen Delivery Va thod 09/12/23 12:45 09/12/23 12:50 09/12/23 12:52 Temperature Pulse Rate 75 82 Pulse Rate [Pulse Oximeter] Pulse Rate [orthos tatic lying] 78 Pulse Rate [orthos tatic sitting] 80 Pulse Rate [orthos tatic standing] 91 Respiratory Rate Blood Pressure Blood Pressure [Ri ght Arm] Blood Pressure [Ri ght Upper Arm] Blood Pressure [or thostatic lying] 102/46 L Blood Pressure [or thostatic sitting] 98/64 Blood Pressure [or thostatic standing ] 89/50 L Pulse Oximetry 93 97 Oxygen Delivery Va thod 09/12/23 13:00 09/12/23 13:01 09/12/23 13:15 Temperature Pulse Rate 77 79 77 Pulse Rate [Pulse Oximeter] Pulse Rate [orthos tatic lying] Pulse Rate [orthos tatic sitting] Pulse Rate [orthos tatic standing] Respiratory Rate Blood Pressure 100/50 L Blood Pressure [Ri ght Arm] Blood Pressure [Ri ght Upper Arm] Blood Pressure [or thostatic lying] Blood Pressure [or thostatic sitting] Blood Pressure [or thostatic standing ] Pulse Oximetry 95 93 94 Oxygen Delivery Me thod 09/12/23 13:30 09/12/23 13:31 09/12/23 14:26 Temperature 98.0 F Pulse Rate 77 76 Pulse Rate [Pulse Oximeter] 76 Pulse Rate [orthos tatic lying] Pulse Rate [orthos tatic sitting] Pulse Rate [orthos tatic standing] Respiratory Rate 24 Blood Pressure 93/42 L Blood Pressure [Ri ght Arm] 116/53 L Blood Pressure [Ri ght Upper Arm] Blood Pressure [or thostatic lying] Blood Pressure [or thostatic sitting] Blood Pressure [or thostatic standing ] Pulse Oximetry 96 96 96 Oxygen Delivery Me thod Room Air Hospitalist - H&P: Result Labs Labs: Short CBC 09/12/23 Range/Units 08:58 WBC 11.39 H (4.50-11.00) K/uL Hgb 11.2 L (12.0-16.0) gm/dL Hct 35.4 (33.0-51.0) % Plt Count 310 (140-440) K/uL BMP 09/12/23 08:58 Sodium 140 Potassium 3.1 L Chloride 105 Carbon Dioxide 23 BUN 25 Creatinine 1.2 Glucose 123 H Calcium 8.9 Urine 09/12/23 Range/Units 10:20 Urine Color Yellow (Yellow) Urine Appearance Cloudy A (Clear) Urine pH 5.0 (5.0-8.5) Ur Specific [place] 1.015 (1.000-1.030) Urine Protein 1+ A (Negative) Urine Glucose (UA) Negative (Negative) Ordering Physician: Nilo Patel M.D. Date of Service: 09/12/23 Procedure(s): CT head/brain wo [facility] Accession Number(s): [id number] cc: Kecia Toscano M.D.; Nilo Patel M.D.~ For Patients: As a result of the Cures Act, medical imaging exams and procedure reports are released immediately into your electronic medical record. You may view this report before your referring provider. If you have questions, please contact your health care provider. INDICATION: Head trauma. TECHNIQUE: CT of the head without contrast. Coronal and sagittal reformats are included. COMPARISON: None. FINDINGS: No acute intracranial hemorrhage. No mass effect or midline shift. No hydrocephalus or extra-axial collections. White matter is within normal limits for age. No acute osseous abnormalities. Mastoid air cells and paranasal sinuses are clear. Normal soft tissues. IMPRESSION: IMPRESSION: 1. No acute intracranial abnormalities. Please note that all CT scans at this facility use dose modulation, iterative reconstruction, and/or weight-based dosing when appropriate to reduce radiation dose to as low as reasonably achievable. Dictated by Adria Garcia MD @ 09/12/2023 2:08:22 PM (Electronically Signed) Assessment and Plan Assessment and plan (1) Severe sepsis: Problem comment: - Tachycardic, hypotensive, leukocytosis (all borderline), mildly elevated lactate. Suspect source is UTI. - Started treatment with IVF and ceftriaxone in ER. Total of 2L NS given so far. - Recheck lactate after IVF boluses given in ER. Status: Acute (2) Urinary tract infection: Problem comment: - Started ceftriaxone in ER. Continue this. Due to abdominal pain, will also check CT abd/pelvis with contrast. Status: Acute (3) Acute kidney injury: Problem comment: - Suspect due to volume depletion and hypotension with sepsis. - Hold hydrochlorothiazide and losartan. - Was given 2L NS so far. Recheck BMP in am. Status: Acute (4) Cough: Problem comment: - Check CXR and test for covid/flu/RSV, may need to adjust antibiotics depending on findings. Status: Acute (5) Hypokalemia: Problem comment: - Mild, asymptomatic. Able to take PO now, so replace orally and recheck in am. Status: Acute (6) Fall: Problem comment: - Suspect due to dizzy/lightheadedness - PT evaluation and treat tomorrow. Status: Acute (7) Closed head injury: Problem comment: - On Xarelto. Now has VANEGAS. CT head neg for bleed. No neurologic findings on exam. Monitor. Status: Acute (8) Chronic anticoagulation: Problem comment: - Lifelong Xarelto for chronic DVT. DVT x3 in left leg. - Continue in hospital. Status: Chronic (9) Recurrent deep vein thrombosis (DVT): Problem comment: - Three lifetime DVTs, most recent 09/18/22. Recommended lifetime Xarelto 1970 while , 2005 in cast for broken ankle, 2021 spontaneous always left leg Status: Chronic (10) Hypertension: Problem comment: - 3 med regimen as an outpatient: HCTZ, Losartan, Toprol xl - Holding these due to hypotension. Restart when BP stable and improved (and for HCTZ, losartan when IGNACIO has resolved). Status: Chronic (11) Dyslipidemia: Problem comment: - on Rosuvastatin 20 mg as outpatient. - Continue this and check LFTs due to h/o elevated LFTs. Status: Chronic (12) Obesity (BMI 30.0-34.9): Status: Chronic (13) Chronic GERD: Problem comment: - hx H. pylori. - Continue outpatient omeprazole. Status: Chronic
--- NOTE | 2023-09-12 15:13 | CRLHL7_ITS ---
For Patients: As a result of the Century Cures Act, medical imaging exams and procedure reports are released immediately into your electronic medical record. You may view this report before your referring provider. If you have questions, please contact your health care provider. INDICATION: Lower back pain, UTI, sepsis COMPARISON: 12/14/2022 TECHNIQUE: CT of the abdomen and pelvis after the administration of intravenous contrast. Multiplanar axial, coronal, and sagittal reformats were reconstructed. Contrast: 95 mL Isovue 370 intravenously. Oral contrast was not administered. FINDINGS: Lung bases: Multiple calcified granulomas. Bibasilar reticulation. Liver: Normal. No masses. Normal vasculature. Gallbladder and biliary tree: Cholecystectomy. No biliary duct dilation. Pancreas: Normal. Spleen: Normal. Normal size. Adrenal glands: Normal. No nodules. Kidneys and bladder: Normal size and position. Retro aortic left renal vein. No cyst or mass. No calculi. There is right urothelial thickening and enhancement involving the upper collecting system and proximal ureter. The left collecting system appears normal. Very minimal blurring of the corticomedullary differentiation in the right kidney. Mildly asymmetric right perinephric stranding. No renal abscess. No perinephric fluid collection. No urinary tract dilation. The urinary bladder is normal. GI: Noninflamed duodenal diverticulum. Colonic diverticulosis without diverticulitis no dilated segments. No abnormal bowel wall thickening or hyperenhancement. Small stool burden. The appendix is not discretely seen. Vessels: Aorta and major branches, including the mesenteric vessels: Patent. Normal caliber. Moderate atherosclerotic plaques. IVC and tributaries: Normal. Mesenteric and portal veins: Normal. Peritoneum: No free fluid. Lymph nodes: No adenopathy. Pelvis: No pelvic mass. Bones: No fractures. No focal bone lesions. L5-S1 disc degeneration and lower lumbar facet arthropathy. Abdominal wall: Tiny fat containing umbilical hernia. IMPRESSION: Right upper urinary tract infection and pyelonephritis. No renal abscess or perinephric collection. No urinary tract obstruction. Please note that all CT scans at this facility use dose modulation, iterative reconstruction, and/or weight-based dosing when appropriate to reduce radiation dose to as low as reasonably achievable. Dictated by Arlene Jhaveri MD @ 09/12/2023 5:31:02 PM (Electronically Signed)
[2023-09-12 15:22] LABS: Lactate* 2.5 mmol/L (0.5-1.9)
[2023-09-12 15:28] LABS: Albumin* 3.9 g/dL (3.3-5.0)
[2023-09-12 15:30] LABS: Aspartate Amino Transferase* 112 U/L (12-35); Bilirubin Direct* 0.3 mg/dL (0.0-0.5); Bilirubin Total* 1.2 mg/dL (0.1-1.5); Total Protein* 7.1 g/dL (6.0-8.3)
[2023-09-12 15:31] LABS: Alanine Aminotransferase* 52 U/L (4-35); Alkaline Phosphatase* 188 U/L (40-150)
[2023-09-12] MEDS: POTASSIUM BICARB 25 MEQ EFFERVESCENT TAB PO ×2 (16:58→18:30)
[2023-09-12] MEDS: RIVAROXABAN 10 MG TABLET 20 MG PO (16:59)
[2023-09-12] MEDS: ACETAMINOPHEN 325 MG TABLET 650 MG PO ×2 (16:59→23:00)
[2023-09-12 17:31] LABS: PCR FLU A Negative PCR FLU A (Negative); PCR FLU B Negative PCR FLU B (Negative); PCR RSV Negative PCR RSV (Negative)
[2023-09-12 17:32] LABS: SARS PCR* Negative SARS-CoV-2 (Negative)
[2023-09-12] MEDS: 0.9 % SODIUM CHLORIDE 500 ML 500 ML IV ×2 (17:40→23:41)
--- NOTE | 2023-09-12 19:38 | PC.NURSE ---
End of shift-- Pleasant and cooperative, alert and oriented patient was admitted to med-surg from ED this afternoon. VSS and pt is afebrile. SPO2 maintained >94% on RA. She c/o pain in her head and back which she rated as high as 10 out of 10 and was given Oxycodone and Tylenol with stated improvement. Pt continues to c/o a headache which she rated 2 out of 10. Bruise noted to right side of forehead. Telemetry shows Sinus rhythm with 1st degree AV block. LS CTA but pt does c/o a minimally productive cough with clear sputum. She was up to the BR with SBA and tolerated it well. She denied dizziness at this time, but was encouraged to move slowly. Pt urinated once but was partially incontinent and missed the hat. Urine appeared yellow, but thick. Report to ESTRELLA Verma.
[2023-09-12 23:47] LABS: Lactate* 1.6 mmol/L (0.5-1.9)
[2023-09-13] VITALS (8 sets, daily range): BP systolic 90–137; BP diastolic 45–77; PULSE 68–76; RESP 16–20; TEMP 36.7–37.5; O2SAT 93–99
[2023-09-13] MEDS: MELATONIN 3 MG TABLET PO (00:46)
--- NOTE | 2023-09-13 06:59 | PC.NURSE ---
Shift note: No c/o nausea throughout the night, pt is up with SBA/independently in the room, she is voiding, c/o pain and aches which she confirms to be chronic. BPs in 90ies, MD aware, bolus administered with no significant changes in BP. Pt stated she is a little lightheaded with walking to the bathroom.
[2023-09-13 07:02] LABS: Basophils Percent Auto 0.2 % (0.0-3.0); Eosinophils Percent Auto 0.4 % (0.0-7.0); Hematocrit 28.4 % (33.0-51.0); Hemoglobin* 8.8 gm/dL (12.0-16.0); Immature Granulocytes Pct Auto 0.3 %; Mean Corpuscular HGB Conc 31 gm/dL (32-36); Mean Corpuscular Hemoglobin 29 pg (26-34); Mean Corpuscular Volume 93 fL (80-100); Monocytes Percent Auto 6.5 % (0.0-11.0); Neutrophils Percent Auto 84.6 % (42.0-72.0); Platelet Count* 227 K/uL (140-440); RDW Coefficient of Variation % 13.9 % (11.5-15.5); Red Blood Count 3.04 m/uL (4.00-5.20); White Blood Count* 13.42 K/uL (4.50-11.00)
[2023-09-13 07:16] LABS: Slide Review Reflex No
[2023-09-13 07:28] LABS: Chloride* 105 mmol/L (96-114); Potassium* 3.7 mmol/L (3.6-5.1); Sodium* 137 mmol/L (135-149)
[2023-09-13 07:31] LABS: Creatinine* 0.9 mg/dL (0.5-1.5); Est. Creatinine Clearance* 41.72; Estimated Glomerular Filt Rate 65 ml/min
[2023-09-13 07:32] LABS: Anion Gap 8 mEq/L (7-15); Blood Urea Nitrogen* 26 mg/dL (7-30); Calcium* 7.9 mg/dL (8.4-10.6); Carbon Dioxide* 24 mmol/L (20-32); Glucose* 109 mg/dL (60-115)
[2023-09-13 07:46] LABS: C Reactive Protein* 18.5 mg/dL (0.5-1.0)
[2023-09-13 07:53] LABS: Magnesium* 1.6 mg/dL (1.5-2.6)
[2023-09-13 08:11] LABS: Troponin I* 0.37 ng/mL (0.01-0.04)
[2023-09-13] MEDS: ROSUVASTATIN CALCIUM 10 MG TABLET 20 MG PO (09:37)
[2023-09-13] MEDS: RIVAROXABAN 10 MG TABLET 20 MG PO (09:37)
[2023-09-13] MEDS: OMEPRAZOLE 20 MG CAPSULE DR PO (09:38)
[2023-09-13] MEDS: FLUOXETINE HCL 20 MG CAPSULE PO (09:38)
[2023-09-13] MEDS: SODIUM CHLORIDE 0.9 % (FLUSH) 10 ML SYRINGE 5 ML IVF ×2 (09:38→20:47)
[2023-09-13] MEDS: cefTRIAXone 2 GM in 0.9 % SODIUM CHLORIDE Mini-bag 100 ML IVPB (11:24)
[2023-09-13] MEDS: ACETAMINOPHEN 325 MG TABLET 650 MG PO (15:49)
--- NOTE | 2023-09-13 16:36 | PM.IMPN1 ---
Progress Note: A&P Assessment and plan (1) Severe sepsis: Problem details: - Tachycardic, hypotensive, leukocytosis (all borderline), mildly elevated lactate. Suspect source is UTI. - Started treatment with IVF and ceftriaxone in ER. Total of 2L NS given so far. Lactate cleared with treatment Status: Acute (2) Type 2 [place] (myocardial infarction): Problem details: Elevated troponin due to sepsis primarily. Monitor and trend for cardiac complications. Status: Acute (3) Prolonged QT interval: Problem details: Caution with QT prolonging drugs Status: Acute (4) Fall: Problem details: - Suspect due to dizzy/lightheadedness - PT evaluation and treat tomorrow. Status: Acute (5) Chronic anticoagulation: Problem details: - Lifelong Xarelto for chronic DVT. DVT x3 in left leg. - Continue in hospital. Status: Chronic (6) Acute kidney injury: Problem details: - Suspect due to volume depletion and hypotension with sepsis. - Hold hydrochlorothiazide and losartan. - Was given 2L NS so far. Recheck BMP in am. Status: Acute Plan Continue in hospital for treatment of sepsis, UTI. Monitor for cardiac problems. Anticipate discharge to home when doing well. Time Spent With Patient Total time spent: Total time spent today is 60 minutes, 45 minutes in coordination care discussing with patient other providers ongoing management of sepsis and urinary tract infection. Subjective Date Seen: 09/13/23 Interval history: 77-year-old female admitted to the hospital with 2 day history of illness. She reports on Thursday that she had onset of feeling chilled and tired. Early sees Thursday morning around 4:00 a.m. she awoke with shaking chills. She was quite weak. She had a fall at home and hit her head as well. Eventually she came to the emergency room for evaluation. In the emergency department she was felt to have a UTI as the cause of her syndrome of sepsis. She had acute kidney injury with an increase in her creatinine from 0.6 2 weeks ago to 1.2. She had lactic acidosis. She was hypotensive and received multiple fluid boluses. She received IV ceftriaxone. This morning she has an elevated of troponin of 0.36 with a nonischemic EKG and no chest pain symptoms. Today she reports feeling much better. She feels stronger. No shortness of breath, cough, chest pain, abdominal pain. She was able to eat breakfast this morning. Exam Narrative: Exam Narrative: She is alert and appears in no distress. She gives her own history. Respirations are clear to auscultation. Cardiovascular: S1, S2, regular rate and rhythm. No murmur gallop or rub. Abdomen: Bowel sounds active. Abdomen is soft without tenderness or mass. Extremities without edema. Const: Vital Signs, click to edit/add: Vital Signs - 24 hr 09/12/23 16:45 09/12/23 19:00 09/12/23 23:00 Temperature 98.5 F Pulse Rate 75 70 Pulse Rate [Pulse Oximeter] 65 Respiratory Rate 20 Blood Pressure [Ri ght Arm] 100/52 L Pulse Oximetry 98 Oxygen Delivery Me thod Room Air 09/12/23 23:00 09/12/23 23:00 09/12/23 23:00 Temperature 98.5 F Pulse Rate Pulse Rate [Pulse Oximeter] 70 66 Respiratory Rate 20 20 20 Blood Pressure [Ri ght Arm] 93/47 L Pulse Oximetry 98 98 Oxygen Delivery Ne thod Room Air Room Air 09/13/23 03:00 09/13/23 07:00 09/13/23 07:00 Temperature 98.5 F Pulse Rate 74 Pulse Rate [Pulse Oximeter] 68 75 Respiratory Rate 20 18 Blood Pressure [Ri ght Arm] 90/51 L Pulse Oximetry 95 Oxygen Delivery Ne thod Room Air 09/13/23 07:00 09/13/23 08:12 09/13/23 11:00 Temperature 98.1 F 98.6 F Pulse Rate Pulse Rate [Pulse Oximeter] 73 72 Respiratory Rate 18 20 18 Blood Pressure [Ri ght Arm] 111/45 L 134/65 Pulse Oximetry 94 93 99 Oxygen Delivery Ne thod Room Air Room Air Room Air 09/13/23 15:00 09/13/23 15:49 Temperature 99.5 F Pulse Rate Pulse Rate [Pulse Oximeter] Respiratory Rate 18 Blood Pressure [Ri ght Arm] Pulse Oximetry 96 Oxygen Delivery Me thod Room Air Labs Labs: Laboratory Results - last 24 hr 09/12/23 09/12/23 09/13/23 16:14 23:46 06:14 WBC 13.42 H RBC 3.04 L Hgb 8.8 L Hct 28.4 L MCV 93 MCH 29 MCHC 31 L RDW Coeff of [place] 13.9 Plt Count 227 Neut % (Auto) 84.6 H Lymph % (Auto) 8.0 L [place] % (Auto) 6.5 Eos % (Auto) 0.4 Baso % (Auto) 0.2 Neut # (Auto) 11.40 H Lymph # (Auto) 1.10 [place] # (Auto) 0.90 Eos # (Auto) 0.10 Baso # (Auto) 0.00 Abs Immat Gran (auto) 0.00 Imm/Tot Granulo (auto) 0.3 Sodium 137 Potassium 3.7 Chloride 105 Carbon Dioxide 24 Anion Gap 8 BUN 26 Creatinine 0.9 Estimated Creat Clear 41.72 Estimated GFR 65 Glucose 109 Lactate 1.6 Calcium 7.9 L Magnesium 1.6 Troponin I 0.37 H* C-Reactive Protein 18.5 H SARS-CoV-2 (PCR) Negative SARS-CoV-2 Influenza Type A (PCR) Negative PCR FLU A Influenza Type B (PCR) Negative PCR FLU B RSV (PCR) Negative PCR RSV Lab Acknowledgement 09/13/23 07:33 WBC RBC Hgb Hct MCV MCH MCHC RDW Coeff of [place] Plt Count Neut % (Auto) Lymph % (Auto) [place] % (Auto) Eos % (Auto) Baso % (Auto) Neut # (Auto) Lymph # (Auto) [place] # (Auto) Eos # (Auto) Baso # (Auto) Abs Immat Gran (auto) Imm/Tot Granulo (auto) Sodium Potassium Chloride Carbon Dioxide Anion Gap BUN Creatinine Estimated Creat Clear Estimated GFR Glucose Lactate Calcium Magnesium Troponin I C-Reactive Protein SARS-CoV-2 (PCR) Influenza Type A (PCR) Influenza Type B (PCR) RSV (PCR) Lab Acknowledgement Test Added
[2023-09-13] MEDS: METOPROLOL SUCCINATE (XL) 50 MG TAB PO (17:33)
--- NOTE | 2023-09-13 18:25 | PC.NURSE ---
Shift Note : Pt friendly and cooperative. Moves well with SBA. VSS, but pt did endorse chills and had visible rigors with a temp of 99.5. PRN Tylenol given and pt verbalized relief on reassessment. Tolerating regular diet without difficulty. She does c/o of mild tenderness with RUQ palpation. BM this afternoon. Reduced appetite, eating small amounts throughout the day and declined dinner tray. Encouraged water intake, pt has been diligently sipping throughout the shift.
[2023-09-14] VITALS (7 sets, daily range): BP systolic 148–161; BP diastolic 74–92; PULSE 63–75; RESP 18–20; TEMP 36.6–37.1; O2SAT 95–97
[2023-09-14] MEDS: PROCHLORPERAZINE 5 MG/ML VIAL IV (00:55)
--- NOTE | 2023-09-14 06:33 | PC.NURSE ---
Shift note: Pt is afebrile during this shift, she complained on nausea and has had dry heaving, RN treated per eMAR with relief. Up to the bathroom with SBA, no other complains overnight.
[2023-09-14 08:02] LABS: Basophils Absolute Auto 0.06 K/uL (0.00-0.30); Basophils Percent Auto 0.8 % (0.0-3.0); Eosinophils Percent Auto 1.3 % (0.0-7.0); Hematocrit 29.6 % (33.0-51.0); Hemoglobin* 9.3 gm/dL (12.0-16.0); Immature Granulocytes Abs Auto 0.04 K/uL (0.00-0.30); Immature Granulocytes Pct Auto 0.5 %; Lymphocytes Percent Auto 16.3 % (20-44); Mean Corpuscular HGB Conc 31 gm/dL (32-36); Mean Corpuscular Hemoglobin 29 pg (26-34); Mean Corpuscular Volume 92 fL (80-100); Monocytes Percent Auto 8.8 % (0.0-11.0); Neutrophils Percent Auto 72.3 % (42.0-72.0); Platelet Count* 231 K/uL (140-440); RDW Coefficient of Variation % 13.8 % (11.5-15.5); Red Blood Count 3.22 m/uL (4.00-5.20); White Blood Count* 7.91 K/uL (4.50-11.00)
[2023-09-14 08:04] LABS: Slide Review Reflex No
[2023-09-14] MEDS: METOPROLOL SUCCINATE (XL) 100 MG TAB PO (08:48)
[2023-09-14] MEDS: ROSUVASTATIN CALCIUM 10 MG TABLET 20 MG PO (08:48)
[2023-09-14] MEDS: OMEPRAZOLE 20 MG CAPSULE DR PO (08:48)
[2023-09-14] MEDS: FLUOXETINE HCL 20 MG CAPSULE PO (08:48)
[2023-09-14] MEDS: RIVAROXABAN 10 MG TABLET 20 MG PO (08:48)
[2023-09-14] MEDS: SODIUM CHLORIDE 0.9 % (FLUSH) 10 ML SYRINGE 5 ML IVF ×2 (08:49→21:21)
[2023-09-14] MEDS: cefTRIAXone 2 GM in 0.9 % SODIUM CHLORIDE Mini-bag 100 ML IVPB (12:06)
--- NOTE | 2023-09-14 15:35 | PC.NURSE ---
Tele indicates NSR. Pt denied cp or dyspnea during nsg interventions. No dysphagia with meds. Adequate I & 0. Eval by Nola Soriano hospitalist. IV ATB infused w/o difficulty. Continue plan of care. Report to Vickie DE LA ROSA for evening shift.
--- NOTE | 2023-09-14 17:46 | PM.IMPN1 ---
Progress Note: A&P Assessment and plan (1) Severe sepsis: Problem details: - Tachycardic, hypotensive, leukocytosis (all borderline), mildly elevated lactate. Suspect source is UTI. Urine culture growing pansensitive E coli - Started treatment with IVF and ceftriaxone in ER. Total of 2L NS given so far. Lactate cleared with treatment Status: Acute (2) Type 2 [place] (myocardial infarction): Problem details: Elevated troponin due to sepsis primarily. Monitor and trend for cardiac complications. Status: Acute (3) Prolonged QT interval: Problem details: Caution with QT prolonging drugs Status: Acute (4) Fall: Problem details: - Suspect due to dizzy/lightheadedness - PT evaluation and treat tomorrow. Status: Acute (5) Chronic anticoagulation: Problem details: - Lifelong Xarelto for chronic DVT. DVT x3 in left leg. - Continue in hospital. Status: Chronic (6) Acute kidney injury: Problem details: - Suspect due to volume depletion and hypotension with sepsis. - Hold hydrochlorothiazide and losartan. - Was given 2L NS so far. Recheck BMP in am. Status: Acute Plan Continue in hospital for ongoing treatment of UTI with sepsis. Anticipate discharge to home if she continues to improve. Time Spent With Patient Total time spent: Total time spent today is 40 minutes, 30 minutes in coordination of care discussing with patient and other providers ongoing evaluation management of sepsis and stress myocardial ischemia. Subjective Date Seen: 09/14/23 Interval history: 77-year-old female admitted to the hospital with 2 day history of illness. She reports on Thursday that she had onset of feeling chilled and tired. Early sees Thursday morning around 4:00 a.m. she awoke with shaking chills. She was quite weak. She had a fall at home and hit her head as well. Eventually she came to the emergency room for evaluation. In the emergency department she was felt to have a UTI as the cause of her syndrome of sepsis. She had acute kidney injury with an increase in her creatinine from 0.6 2 weeks ago to 1.2. She had lactic acidosis. She was hypotensive and received multiple fluid boluses. She received IV ceftriaxone. Yesterday morning she has an elevated of troponin of 0.36 with a nonischemic EKG and no chest pain symptoms. Today troponin is 0.2. Today she reports feeling much better. She feels stronger. No shortness of breath, cough, chest pain, abdominal pain. She was able to eat a normal diet today. She has been up walking with therapy is gone fairly well. Echocardiogram is pending. Exam Narrative: Exam Narrative: She is alert and appears in no distress. She is up walking with a walker and doing fairly well. Breathing is unlabored. Abdomen is soft without tenderness or mass. Const: Vital Signs, click to edit/add: Vital Signs - 24 hr 09/13/23 19:00 09/13/23 23:00 09/13/23 23:00 Temperature 98.4 F Pulse Rate 70 Pulse Rate [Left A pical] Pulse Rate [Pulse Oximeter] 74 74 Respiratory Rate 20 20 Blood Pressure [Le ft Arm] Blood Pressure [Ri ght Arm] 132/77 Pulse Oximetry 95 Oxygen Delivery Me thod Room Air 09/13/23 23:00 09/13/23 23:00 09/14/23 03:00 Temperature 98 F Pulse Rate Pulse Rate [Left A pical] Pulse Rate [Pulse Oximeter] 73 75 Respiratory Rate 16 18 Blood Pressure [Le ft Arm] Blood Pressure [Ri ght Arm] 156/92 H Pulse Oximetry 96 96 Oxygen Delivery Me thod Room Air Room Air 09/14/23 07:17 09/14/23 07:50 09/14/23 07:50 Temperature 98 F Pulse Rate 67 Pulse Rate [Left A pical] 63 Pulse Rate [Pulse Oximeter] 63 Respiratory Rate 18 18 Blood Pressure [Le ft Arm] Blood Pressure [Ri ght Arm] 148/79 H Pulse Oximetry 97 97 Oxygen Delivery Me thod Room Air Room Air 09/14/23 11:05 09/14/23 15:05 09/14/23 15:05 Temperature 98.7 F 98.3 F Pulse Rate 64 Pulse Rate [Left A pical] Pulse Rate [Pulse Oximeter] 65 63 Respiratory Rate 18 20 Blood Pressure [Le ft Arm] 161/79 H Blood Pressure [Ri ght Arm] 157/87 H Pulse Oximetry 97 95 Oxygen Delivery Me thod Room Air Room Air 09/14/23 15:05 09/14/23 15:05 Temperature Pulse Rate Pulse Rate [Left A pical] Pulse Rate [Pulse Oximeter] 63 Respiratory Rate 20 20 Blood Pressure [Le ft Arm] Blood Pressure [Ri ght Arm] Pulse Oximetry 95 Oxygen Delivery De thod Room Air Documenting provider has reviewed patient's vital signs: yes Labs Labs: Laboratory Results - last 24 hr 09/14/23 09/14/23 05:33 07:54 WBC 7.91 RBC 3.22 L Hgb 9.3 L Hct 29.6 L MCV 92 MCH 29 MCHC 31 L RDW Coeff of La 13.8 Plt Count 231 Neut % (Auto) 72.3 H Lymph % (Auto) 16.3 L [place] % (Auto) 8.8 Eos % (Auto) 1.3 Baso % (Auto) 0.8 Neut # (Auto) 5.70 Lymph # (Auto) 1.30 [place] # (Auto) 0.70 Eos # (Auto) 0.10 Baso # (Auto) 0.06 Abs Immat Gran (auto) 0.04 Imm/Tot Granulo (auto) 0.5 Troponin I 0.20 H* Lab Acknowledgement Test Added
[2023-09-14] MEDS: hydroCHLOROthiazide 25 MG TABLET PO (18:22)
[2023-09-14] MEDS: cephALEXin 500 MG CAPSULE PO (21:20)
[2023-09-14] MEDS: LOSARTAN POTASSIUM 50 MG TABLET PO (21:20)
--- NOTE | 2023-09-14 22:07 | PC.NURSE ---
End of Shift: Patient pleasant and cooperative. Patient vitally stable, lungs clear, BS WNL, IV SL and intact. Patient independent in room and denies pain. Patient tolerating regular diet. Patient urinating and had 1 formed BM. Patient tele=NSR.
[2023-09-15 01:31] VITALS: PULSE 61
[2023-09-15 03:00] VITALS: BP 147/77; PULSE 60; RESP 18; TEMP 36.6; O2SAT 96
--- NOTE | 2023-09-15 05:12 | PC.NURSE ---
Shift note: Pt is independent in room, alert and oriented. No fever, N/V and pain reported. Vitally stable.
[2023-09-15 06:48] LABS: Basophils Percent Auto 0.5 % (0.0-3.0); Eosinophils Percent Auto 1.7 % (0.0-7.0); Hemoglobin* 10.1 gm/dL (12.0-16.0); Immature Granulocytes Pct Auto 1.5 %; Lymphocytes Percent Auto 16.4 % (20-44); Mean Corpuscular HGB Conc 32 gm/dL (32-36); Mean Corpuscular Hemoglobin 29 pg (26-34); Mean Corpuscular Volume 92 fL (80-100); Monocytes Percent Auto 6.7 % (0.0-11.0); Neutrophils Percent Auto 73.2 % (42.0-72.0); Platelet Count* 287 K/uL (140-440); RDW Coefficient of Variation % 13.6 % (11.5-15.5); Red Blood Count 3.49 m/uL (4.00-5.20); White Blood Count* 11.46 K/uL (4.50-11.00)
[2023-09-15 07:01] LABS: Chloride* 104 mmol/L (96-114); Potassium* 3.9 mmol/L (3.6-5.1); Slide Review Reflex No; Sodium* 141 mmol/L (135-149)
[2023-09-15 07:04] LABS: Anion Gap 9 mEq/L (7-15); Blood Urea Nitrogen* 9 mg/dL (7-30); Carbon Dioxide* 28 mmol/L (20-32); Creatinine* 0.6 mg/dL (0.5-1.5); Est. Creatinine Clearance* 41.72; Estimated Glomerular Filt Rate 92 ml/min
[2023-09-15 07:05] LABS: Calcium* 9.4 mg/dL (8.4-10.6); Glucose* 123 mg/dL (60-115)
[2023-09-15 07:07] LABS: C Reactive Protein* 5.5 mg/dL (0.5-1.0)
[2023-09-15] MEDS: ACETAMINOPHEN 325 MG TABLET 650 MG PO (07:27)
[2023-09-15 08:00] VITALS: BP 146/78; PULSE 59; RESP 18; TEMP 36.7; O2SAT 96
[2023-09-15] MEDS: METOPROLOL SUCCINATE (XL) 100 MG TAB PO (09:34)
[2023-09-15] MEDS: FLUOXETINE HCL 20 MG CAPSULE PO (09:34)
[2023-09-15] MEDS: RIVAROXABAN 10 MG TABLET 20 MG PO (09:34)
[2023-09-15] MEDS: LOSARTAN POTASSIUM 50 MG TABLET PO (09:35)
[2023-09-15] MEDS: OMEPRAZOLE 20 MG CAPSULE DR PO ×2 (09:35)
[2023-09-15] MEDS: hydroCHLOROthiazide 25 MG TABLET PO (09:36)
[2023-09-15] MEDS: cephALEXin 500 MG CAPSULE PO (09:36)
[2023-09-15] MEDS: ROSUVASTATIN CALCIUM 10 MG TABLET 20 MG PO (09:41)
--- NOTE | 2023-09-15 11:52 | PM.DS1 ---
DS: Providers Provider Date Seen: 09/15/23 Date of admission: 09/13/23 09:48 Primary care physician: Kecia Toscano MD Admitting Clinician: Nilo Patel MD Attending Physician on discharge: Nilo Patel MD Date of Discharge: 09/15/23 DS: Diagnosis Discharge Diagnosis (1) Sepsis: Status: Acute Problem details: On admission patient was found to have sepsis. This was felt to be due to urinary tract infection. Received fluid resuscitation and antibiotics with good response (2) Urinary tract infection: Status: Acute Problem details: Likely cause of sepsis. Treated with ceftriaxone in the hospital and Keflex as an outpatient. Pansensitive E coli (3) Acute kidney injury: Status: Acute Problem details: Likely due to sepsis. Blood pressure medications were held initially and restarted on discharge. (4) Type 2 [place] (myocardial infarction): Status: Acute Problem details: Elevated troponin due to sepsis primarily. Monitor and trend for cardiac complications. (5) Prolonged QT interval: Status: Acute Problem details: Caution with QT prolonging drugs (6) Closed head injury: Status: Acute Problem details: - On Xarelto. Now has VANEGAS. CT head neg for bleed. No neurologic findings on exam. Monitor. (7) Chronic anticoagulation: Status: Chronic DS: Summary Hospital Course Hospital Course: 77-year-old female admitted to the hospital acutely ill with sepsis. Time admission this was felt to be due to a urinary tract infection. She had hypotension and fever, acute kidney injury and elevated troponin. She was resuscitated from sepsis with IV fluids and started on ceftriaxone. Over the subsequent days in the hospital she had a improvement in her symptoms, resolution of her fever and hypotension, resolution of her acute kidney injury and elevated troponin. Urine cultures grew out pansensitive E coli. Discharged on Keflex. Echocardiogram obtained to evaluate elevated troponins. Preliminary report of this was relatively normal. Outpatient treatment will be Keflex for her urinary tract infection. She is to follow up in clinic next week to reassess her symptoms of infection as well as follow-up for acute kidney injury and type 2 [place]/stress myocardial ischemia. If ongoing concerns about symptomatic ischemic heart disease may get a stress test. Otherwise optimize cardiovascular risk factors. Status at Discharge Functional status at discharge: uses cane/walker Overall status at discharge: patient is progressing back to baseline Time Spent with Patient Time attestation: Total time spent providing and/or coordinating discharge services:35 minutes Time spent: Greater than 30 minutes Exam Narrative: Exam Narrative: She is alert and appears in no distress. Breathing is unlabored. Abdomen is soft without tenderness. Const: Vital Signs, click to edit/add: Vital Signs - 24 hr 09/14/23 15:05 09/14/23 15:05 09/14/23 15:05 Temperature 98.3 F Pulse Rate 64 Pulse Rate [Left A pical] Pulse Rate [Pulse Oximeter] 63 63 Respiratory Rate 20 20 Blood Pressure [Le ft Arm] 161/79 H Pulse Oximetry 95 Oxygen Delivery Me thod Room Air 09/14/23 15:05 09/14/23 19:02 09/14/23 23:00 Temperature 98.1 F Pulse Rate Pulse Rate [Left A pical] Pulse Rate [Pulse Oximeter] 64 Respiratory Rate 20 18 18 Blood Pressure [Le ft Arm] 149/74 H Pulse Oximetry 95 96 Oxygen Delivery Me thod Room Air Room Air 09/14/23 23:00 09/14/23 23:00 09/15/23 01:31 Temperature 98.5 F Pulse Rate 61 Pulse Rate [Left A pical] 63 Pulse Rate [Pulse Oximeter] Respiratory Rate 18 18 Blood Pressure [Le ft Arm] 149/77 H Pulse Oximetry 97 97 Oxygen Delivery Me thod Room Air Room Air 09/15/23 03:00 Temperature 97.9 F Pulse Rate Pulse Rate [Left A pical] 60 Pulse Rate [Pulse Oximeter] Respiratory Rate 18 Blood Pressure [Le ft Arm] 147/77 H Pulse Oximetry 96 Oxygen Delivery Me thod Room Air Documenting provider has reviewed patient's vital signs: yes DS: Data Data Completed and Pending Completed studies during hospitalization: Procedures Fluoroscopy of Gallbladder and Bile Ducts using Other Contrast (10/13/22) Resection of Gallbladder, Percutaneous Endoscopic Approach (10/13/22) Labs on day of discharge: Labs from last 24 hours 09/15/23 06:24 WBC 11.46 H RBC 3.49 L Hgb 10.1 L Hct 32.0 L MCV 92 MCH 29 MCHC 32 RDW Coeff of La 13.6 Plt Count 287 Neut % (Auto) 73.2 H Lymph % (Auto) 16.4 L [place] % (Auto) 6.7 Eos % (Auto) 1.7 Baso % (Auto) 0.5 Neut # (Auto) 8.40 H Lymph # (Auto) 1.90 [place] # (Auto) 0.80 Eos # (Auto) 0.20 Baso # (Auto) 0.10 Abs Immat Gran (auto) 0.20 Imm/Tot Granulo (auto) 1.5 Sodium 141 Potassium 3.9 Chloride 104 Carbon Dioxide 28 Anion Gap 9 BUN 9 Creatinine 0.6 Estimated Creat Clear 41.72 Estimated GFR 92 Glucose 123 H Calcium 9.4 C-Reactive Protein 5.5 H Preliminary micro results at discharge 09/13/23 06:19 Blood Culture - Preliminary Blood NO GROWTH AFTER 48 HOURS 09/13/23 06:14 Blood Culture - Preliminary Blood NO GROWTH AFTER 48 HOURS Discharge Plan Discharge Disposition: Home, Self-Care Date of Admission: 09/13/23 09:48 Attending Provider on Discharge: Nilo Patel Primary Care Provider: Kecia Toscano Condition: Stable Anticipated Discharge Date/Time: 09/15/23 08:21 Discharge Medications: New cephalexin 500 mg Capsule 500 mg PO TID Qty: 30 0RF Continued fluoxetine 20 mg capsule 20 mg PO DAILY Qty: 90 4RF hydrochlorothiazide 25 mg tablet 25 mg PO DAILY Qty: 90 4RF losartan 50 mg tablet 50 mg PO BID Qty: 180 4RF metoprolol succinate 100 mg tablet extended release 24 hr 100 mg PO DAILY Qty: 90 4RF omeprazole 20 mg capsule,delayed release(DR/EC) 20 mg PO DAILY Qty: 90 4RF rosuvastatin [Crestor] 20 mg tablet 20 mg PO DAILY Qty: 90 3RF Xarelto 20 mg tablet 20 mg PO DAILY Rx Instructions: must administer with evening meal Discharge Orders: Discharge Order (Routine); Ordered 09/15/23 Ordered By: Nilo Patel Patient Education: Cephalexin (By mouth), Urinary Tract Infection in Older Adults (DC) Additional Instructions: Take medication as prescribed. Activity as tolerated. Follow up with MD return if worsening. Activity Level: Activity as Tolerated and Use Walker Discharge Diet: Regular Follow Up Appointments: Kecia Toscano MD [Primary Care Provider] - 09/22/23 1:30 pm ([facility] for follow-up.) Forms: [employer] Info Instructions
[2023-09-15 12:49] VITALS: PULSE 60
--- NOTE | 2023-09-15 12:55 | PC.NURSE ---
Please see eMar for meds provided. Eval by hospitalist. Pt verbalized understanding of d/c diagnosis, new RX, home meds , f/up appt and sx to report urgently to physician. Pt discharged to own home with personal belongings at 1030 w/brother Art as transportation.
== END 2023-09-15 10:30 | disposition home or self-care (01) | DRG 689 ==
LOC: ED 11:29 → MEDSURG 13:32
PROVIDERS: Family Medicine; Admitting Provider Family Medicine; Emergency Provider Emergency Medicine Emergency Medical Services; PCP Family Medicine; Visit Provider Family Medicine
DX: N39.0 Urinary tract infection, site not specified (principal); I21.A1 Myocardial infarction type 2; R65.20 Severe sepsis without septic shock; N17.9 Acute kidney failure, unspecified; E87.21 Acute metabolic acidosis; B96.20 Unspecified Escherichia coli [E. coli] as the cause of diseases classified elsewhere; R05.9 Cough, unspecified; Z79.01 Long term (current) use of anticoagulants; Z86.718 Personal history of other venous thrombosis and embolism; I95.89 Other hypotension; R42 Dizziness and giddiness; R11.2 Nausea with vomiting, unspecified; S09.90XA Unspecified injury of head, initial encounter; W06.XXXA Fall from bed, initial encounter; Y92.013 Bedroom of single-family (private) house as the place of occurrence of the external cause; I10 Essential (primary) hypertension; K21.9 Gastro-esophageal reflux disease without esophagitis; E78.5 Hyperlipidemia, unspecified; E66.9 Obesity, unspecified; R94.31 Abnormal electrocardiogram [ECG] [EKG]
CPT/HCPCS: 36415; 70450; 71046; 74177; 80048; 80076; 81001; 83605; 83735; 84484; 85025; 86140; 87040; 87086; 87186; 87631; 93005; 93306; 97110; 97116; 97161; 97530; 99284; 99285; G0378; A9270; J0696; J0780; J7030; J7120; Q9967

== ENCOUNTER 2023-09-22 13:56 | Outpatient (CLI) | payer MEDICARE, OTHER, SELFPAY | END 2023-09-22 13:57 | disposition home or self-care (01) | LOC: NFLDREF 13:57 | PROVIDERS: PCP Family Medicine; Visit Provider Family Medicine | DX: N17.9 Acute kidney failure, unspecified (principal) | CPT/HCPCS: 80048 ==

== ENCOUNTER 2023-10-09 14:49 | Outpatient (CLI) | payer MEDICARE, OTHER, SELFPAY | END 2023-10-09 14:50 | disposition home or self-care (01) | LOC: NFLDREF 10-11 06:44 | PROVIDERS: PCP Family Medicine; Referring Provider Family Medicine; Visit Provider Internal Medicine | DX: R06.00 Dyspnea, unspecified (principal); R79.89 Other specified abnormal findings of blood chemistry; I25.2 Old myocardial infarction | CPT/HCPCS: 80048; 83880 ==

== ENCOUNTER 2023-10-20 08:33 | Outpatient (CLI) | payer MEDICARE, OTHER, SELFPAY ==
[2023-10-20] MEDS: REGADENOSON 0.4 MG/5 ML SYRINGE IVP (10:05)
[2023-10-20] MEDS: SODIUM CHLORIDE 0.9 % (FLUSH) 10 ML SYRINGE IVF (10:05)
[2023-10-20 10:43] VITALS: BP 132/79; PULSE 90
--- NOTE | 2023-10-20 13:29 | W.PM.STED ---
Stress Test Note Date Date of test: 10/20/23 Providers Primary care provider: Kecia Toscano Stress test physician: Jasson Stockton Stress Test Note Stress test ordered: Lexiscan Indication for test: Hypertension, Shortness of breath Stress test medicine: Lexiscan Results discussion: Very nice 69-year-old female presents for the above test after discussion the risks benefits and side effects she would like to proceed, cardiac stress test medical history form is reviewed entirely. Pretest EKG shows normal sinus rhythm, the ventricular rate of 77, some T-wave flattening inversion is noted throughout precordial area. Standard Lexiscan protocol is followed, with infusion of Lexiscan over 5 minute. Maximum heart rate was 103. Maximum blood pressure is 167/80 during this test there is no change in her EKG, she remained in sinus rhythm, she symptomatic she abdominal complaints. And recovered normal Impression: Negative electrographic portion of Lexiscan, subjectively negative Follow up suggested: Await nuclear images which will be read by Cardiology/nuclear Medicine, clinical correlation with these will be needed. Patient left this testing facility in excellent condition.
== END 2023-10-20 08:34 | disposition home or self-care (01) ==
LOC: STRESS 08:34
PROVIDERS: PCP Family Medicine; Visit Provider Family Medicine
DX: R06.09 Other forms of dyspnea (principal); I10 Essential (primary) hypertension
CPT/HCPCS: 78452; 93016; 93017; A9500; J2785

== ENCOUNTER 2023-12-07 07:31 | Outpatient (CLI) | payer MEDICARE, OTHER, SELFPAY ==
--- OUTSIDE RECORDS SUMMARY | 2023-12-07 11:27 | XMS_ITS | Clinical Summary ---
Author Name Unknown Organization [facility] Address [place], [place] [address] Care Team Providers Care Clinical Psychologist Licensed Name Role Phone [facility] Unavail[facility] e Kecia Toscano MD Primary Care Provider + Allergies Active Allergy Reactions Criticality Noted Date Comments Sulfa (Sulfonamide Antibiotics) Rash Medium 03/19 Medications Medication Sig Dispensed Refills Start Date End Date Status medical supply, miscellaneous (GRADUATED COMPRESSION STOCKINGS)Indicatio ns:Venous insufficiency 20-30 mm/Hg calf high or thigh high compression stockings - Venous insufficiency 8 Packet 11/08/2018 Active omeprazole (PRILOSEC) 20 mg Delayed-Release capsuleIndications: Gastroesophageal reflux disease, unspecified whether esophagitis present Take 1 Capsule (20 mg) by mouth once daily before a meal. 90 Capsule 12/11/2021 Active metoprolol succinate (TOPROL XL) 100 mg Sustained-Release tabletIndications:H ypertension Take 1 Tablet (100 mg) by mouth once daily. 90 Tablet 12/11/2021 Active losartan (COZAAR) 50 mg tabletIndications:H ypertension Take 1 Tablet (50 mg) by mouth 2 times daily. 180 tablet. 12/11/2021 Active hydroCHLOROthiazide (HCTZ) 25 mg tabletIndications:H ypertension Take 1 Tablet (25 mg) by mouth once daily. 90 Tablet 12/11/2021 Active FLUoxetine (PROZAC) 20 mg capsuleIndications: Dysthymic disorder Take 1 Capsule (20 mg) by mouth every morning. 90 Capsule 12/11/2021 Active rivaroxaban (XARELTO) 20 mg tabletIndications:A cute deep vein thrombosis (DVT) of left tibial vein (HC) Take 1 Tablet (20 mg) by mouth once daily with evening meal. 90 Tablet 10/22/2022 Active rosuvastatin (CRESTOR) 20 mg tabletIndications:H yperlipidemia, unspecified hyperlipidemia type Take 1 Tablet (20 mg) by mouth at bedtime. DO NOT TAKE until see by primary MD and liver tests repeated. 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 Venous insufficiency 12/13/2018 Hypertension 06/11/2018 Other and unspecified hyperlipidemia 03/30/2007 Esophageal reflux Resolved Problems Problem Noted Date Diagnosed Date Resolved Date Paroxysmal SVT (supraventricular tachycardia) 06/11/20 18 12/15/2022 Other acute pulmonary emboli sm without acute cor pulmonale 09/30/2017 06/11/2018 Anticoagulation monitoring, INR range 2-3 09/30/2017 06/11/2018 Overview: INITIAL INR 09/30/17, with Education planned for 10/02/17. Plan for 3 months of anticoagulation and then stop coumadin with coagulopathy work up. Acute deep vein thrombosis ( DVT) of proximal vein of left lower extremity 09/28/2017 04/25/2020 Overview: two previous provoked DVT: and following ankle injury. Brother with Factor 5 Leiden Negative work-up: coumadin stopped. Degenerative arthritis of ankle 09/21/2007 12/15/2022 Fracture, fibula, with tibia 09/21/2007 12/13/2018 Degeneration of intervertebr al disc, site unspecified 03/30/2007 12/11/2021 Encounters Date Type Department Care Team Description 10/21/2023 Telephone [facility] - [address] [place] [address] Lindsay Strickland MD Results 10/20/2023 9:00 AM SECOND CRUSHER Ancillary Procedure [address] [address] 10/15/2023 Orders Only [facility] Scanner 1 scan: (1-Ord) INCOMING RECORDS-LABS, [facility], 10/15/2023 10/13/2023 Telephone [facility] - [place] [address] [place] [phone] Lindsay Strickland MD Questions 10/13/2023 Telephone [facility] - [address] [facility] [place] [address] Lindsay Strickland MD Medication Management (Diuretic? ) 10/09/2023 2:30 PM SECOND CRUSHER Office Visit [address] [address] Lindsay Strickland MD 09/14/2023 4:00 PM SECOND CRUSHER Ancillary Procedure [address] [address] from Last 3 Months Immunizations Name Administration Dates Next Due AMB INFLUENZA, IIV4 (AGE=>6M OS) LUCIEN (Flu Clinic Only) 07/25/2019 COVID-19 vaccine (Pfizer-Bio NTech 30mcg/0.3mL) 12YO+ BIVALENT EDGARD, MDV 07/14/2022 COVID-19 vaccine (Pfizer-Bio NTech 30mcg/0.3mL) PFLUCIEN 02/19/2022,08/04/2021,12/19/2020,2020 Hepatitis B (Adult) 03/28/1999,11/08/1998,1997 Influenza, High-dose Inactivated 021,08/10/2018,07/31/2017,2013 Influenza, IIV3 (Age >=3 years) 07/25/20 13,08/20/2012,09/23/2011,2009 Influenza, IIV4 07/31/2017,06/24/2016,08/30/2015 Influenza, Inactivated AIIV4 (Age 65+ Years) Preserv Free 07/14/2022 Influenza, Inactivated IIV3 (Age 65+ Years) Preserv Free 06/28/2020 Influenza,CCIIV4 PRESERV FREE 07/25/2019 Pneumococcal Poly,23-Valent (Pneumovax) 10/28/2011 Pneumococcal conj 13-Valent (Prevnar 13) 11/26/2015 Td (Age >=7 Years) 08/24/2003 Tdap 11/26/2015 Zoster (Zostavax-ZVL, live) 04/17/2015 Family History Medical History Relation Name Comments No Known Problems Brother 1 No Known Problems Brother 2 No Known Problems Brother 3 No Known Problems Brother 4 No Known Problems Brother 5 No Known Problems Brother 6 Good Health Daughter 1 Good Health Daughter 2 Cancer Father Stroke Father No Known Problems Half-Brother No Known Problems Half-Sister Cancer-breast Maternal Aunt No Known Problems Maternal Grandfather No Known Problems Maternal Grandmother No Known Problems Maternal Uncle Cancer Mother No Known Problems Other No Known Problems Paternal Aunt No Known Problems Paternal Grandfather No Known Problems Paternal Grandmother No Known Problems Paternal Uncle No Known Problems Sister 1 No Known Problems Sister 2 No Known Problems Sister 3 No Known Problems Sister 4 No Known Problems Sister 5 Diabetes Sister 6 Good Health Son Relation Name Status Comments Brother 1 Alive Brother 2 Alive Brother 3 Alive Brother 4 Brother 5 Brother 6 Daughter 1 Alive Daughter 2 Alive Father Half-Brother Half-Sister Maternal Aunt Maternal Grandfather Maternal Grandmother Maternal Uncle Mother Other Paternal Aunt Paternal Grandfather Paternal Grandmother Paternal Uncle Sister 1 Alive Sister 2 Alive Sister 3 Alive Sister 4 Alive Sister 5 Sister 6 Alive Son Alive Social History Tobacco Use Types Packs/Day Years Used Date Smoking Tobacco: Never Smokeless Tobacco: Never Tobacco Cessation:Counseling Given: Yes Alcohol Use Standard Drinks/Week Comments Not Currently 0 (1 standard drink = 0.6 oz pur e alcohol) PHQ-2 Answer Date Recorded PHQ-2 TOTAL SCORE 0 12/11/2021 Social Connections Answer Date Recorded Frequency of Communication with Friends and Fami ly Not on file 10/19/2021 Financial Resource Strain Answer Date R ecorded Difficulty of Paying Living Expenses Not on file 10/19/2021 Difficulty of Paying Living Expenses Not on file 10/19/2021 Sex and Gender Information Value Date Recorded Sex Assigned at Not on file Gender Identity Not on file Sexual Orientation Not on file Obstetrics History Para Term AB IAB SAB Ectopic Multiple Livin g Live Births 4 3 1 1 3 Date Outcome GA Total Labor Labor/2nd/3rd Weight Sex Delivery Anes PTL Shilpa A1 A5 Name Cl in SAB Para Para Para Last Filed Vital Signs Vital Sign Reading Time Taken Comments Blood Pressure 112/72 05/28/2023 2:52 PM CDT Pulse 63 05/28/2023 2:52 PM CDT Temperature 36.7 ??C (98.1 ??F) 12/17/2022 7:50 AM CS T Respiratory Rate 18 12/17/2022 7:50 AM SECOND CRUSHER Oxygen Saturation 95% 05/28/2023 2:52 PM CDT Inhaled Oxygen Concentration - - Weight 105.7 kg (233 lb 1.6 oz) 05/28/2023 2:52 PM CDT Height 165.1 cm (5' 5) 12/19/2021 1:36 PM SECOND CRUSHER Body Mass Index 38.79 12/19/2021 1:36 PM SECOND CRUSHER Plan of Treatment Health Maintenance Due Date Last Done Comments Zoster (shingles) series for age 50+ (2 of 3) 06/12/2015 04/17/2015 Depression screening for age 12+ 12/11/2022 12/11/2021, 03/25/2021, 03/25/2021, Additional history exists Medicare Wellness for age 65+ 12/12/2022, 11/20/2020, 12/14/2019, Additional history exists BMI (ht and wt on same day) for age 18+ 12/19/2022 12/19/2021, 12/11/2021, 11/21/2021, Additional history exists COVID-19 vaccine series ( season) 2023 07/14/2022, 02/19/2022, 02/19/2022, Additional history exists Influenza for age 65+ 06/19/2023 07/14/2022 , 06/23/2021, 06/28/2020, Additional history exists Tetanus booster 11/26/2025 11/26/2015, 08/24/2003 DEXA/DXA scan for age 65+ Completed 2011, 02/13/2011 (Postponed) Hepatitis C screening for ag e 18-79 Completed 11/26/2015 Pneumococcal series for age 65+ Completed 11/26/2015, 11/26/2015, 10/28/2011 Tdap Completed 11/26/2015 Fecal testing non-DNA (FIT,FOBT,iFOBT) for age 45-75 Discontinued 06/28/2020, 02/25/2018, 02/10/2017, Additional history exists Procedures Procedure Name Priority Date/Time Associated Diagnosis Comments NM CARDIAC MPI STRESS TEST Routine 10/20/2023 1:18 PM SECOND CRUSHER Essential (primary) hypertension SCAN CORRESP-LABORATORY RESULTS 10/15/2023 12:00 AM SECOND CRUSHER ECHO TTE COMPLETE WO CONTRAST Routine 09/14/2023 5:19 PM SECOND CRUSHER Elevated troponin from Last 3 Months Results * NM CARDIAC MPI STRESS TEST (10/20/2023 1:18 PM SECOND CRUSHER) Anatomical Region Laterality Modality HEART Ultrasound 10/20/2023 9:27 AM SECOND CRUSHER Narrative 10/20/2023 3:44 PM SECOND CRUSHER ? Toll -free: [phone] ?[facility] ?MYOCARDIAL PERFUSION IMAGING REPORT REST/STRESS SINGLE ISOTOPE GATED SPECT IMAGING USING GD. Patient Name: ?? QI TORRES ? Gender: ? F ? Height: ? 65 in Accession #: ?[id number] ?Weight: ? 234 lb Study Date: ? 10/20/2023 9:27:03 AM ?BSA: ?2.11 m? ? ? : ?1945 77 years ?BMI: ?38.94 kg/m? ? ? Ord. Prov.: ? LINDSAY STRICKLAND ?Monitoring Prov.: Jaime Stockton [facility] Clinical History: ? Dyspnea. Suspicion of coronary artery disease. Cardiac Risk Factors: Hypertension and hypercholesterolemia. Other Symptomatology: Cholecystectomy. Cardiac History: ?Type 2 TX in setting of acute sepsis. Beta lemuel/calcium channel lemuel/nitrate taken today: None prescribed. Caffeine/methylxanthine taken within 12 hrs: ?No. Chest pain/discomfort at baseline: ?No. IMPRESSION 1. See separate report for EKG intrepretation. 2. Left ventricular cavity size was normal (resting EDV 75 ml). 3. Overall left ventricular systolic function was normal without wall motion abnormalities. The post stress LVEF was visually estimated to be 75%. 4. Myocardial perfusion was normal. 5. There were no prior studies available for comparison. STRESS MPI PROCEDURE The patient was studied utilizing a same day rest/stress protocol. Myocardial perfusion imaging was performed at rest, 25 minutes following the intravenous injection of 10.4 mCi of 99mTc sestamibi. 30 seconds after the 15 second IV regadenoson injection, the patient was injected via IV with 35.5 mCi of 99mTc sestamibi. Gated post-stress tomographic imaging with attenuation correction was performed 35 minutes after stress. After image acquisition was completed, data was reconstructed in short, horizontal long and vertical long axis views and tomographic slices were generated. - Pharmacologic stress testing was performed with an IV regadenoson dose of 0.4 mg. - No low level exercise was performed. - Resting heart rate was 76 bpm, peak heart rate was 103 bpm. - Resting blood pressure was 126/78 mmHg; peak blood pressure was 167/80 mmHg. - Patient did not develop significant symptoms. FINDINGS Imaging - The overall quality of the study was excellent with mild soft tissue attenuation on rest and stress studies. - SPECT perfusion images were normal without evidence of ischemia or infarction. - Post stress gated imaging revealed normal left ventricular size with a visually estimated LVEF of 75%. (Lab normals: LVEF >50%, LV Size <150 ml). - There was normal post-stress myocardial thickening and wall motion. - The right ventricle was not visualized. - There was no evidence of abnormal lung or extracardiac activity. - Risk/extent of ischemia per ACC Noninvasive Risk Stratification Guideline: LOW RISK. This study was interpreted and electronically signed by Neeta Solis MD on 10/20/2023 2:54:26 PM. ??Final (Updated) ?? Procedure Note Neeta Solis MD - 10/20/2023 Toll -free: [phone] [facility] MYOCARDIAL PERFUSION IMAGING REPORT REST/STRESS SINGLE ISOTOPE GATED SPECT IMAGING USING GD. Patient Name: QI TORRES Gender: F Height: 65 in Weight: 234 lb Study Date: 10/20/2023 9:27:03 AM BSA: 2.11 m? ? ? : 1945 77 years BMI: 38.94kg/m? ? ? Ord. Prov.: LINDSAY STRICKLAND Monitoring Prov.: Jaime Stockton [facility] Clinical History: Dyspnea. Suspicion of coronary artery disease. Cardiac Risk Factors: Hypertension and hypercholesterolemia. Other Symptomatology: Cholecystectomy. Cardiac History: Type 2 TX in setting of acute sepsis. Beta lemuel/calcium channel lemuel/nitrate taken today: Noneprescribed. Caffeine/methylxanthine taken within 12 hrs: No. Chest pain/discomfort at baseline: No. IMPRESSION 1. See separate report for EKG intrepretation. 2. Left ventricular cavity size was normal (resting EDV 75 ml). 3. Overall left ventricular systolic function was normal without wallmotion abnormalities. The post stress LVEF was visually estimated to be75%. 4. Myocardial perfusion was normal. 5. There were no prior studies available for comparison. STRESS MPI PROCEDURE The patient was studied utilizing a same day rest/stress protocol.Myocardial perfusion imaging was performed at rest, 25 minutes followingthe intravenous injection of 10.4 mCi of 99mTc sestamibi. 30 seconds afterthe 15 second IV regadenoson injection, the patient was injected via IVwith 35.5 mCi of 99mTc sestamibi. Gated post-stress tomographic imagingwith attenuation correction was performed 35 minutes after stress. Afterimage acquisition was completed, data was reconstructed in short,horizontal long and vertical long axis views and tomographic slices weregenerated. - Pharmacologic stress testing was performed with an IV regadenoson doseof 0.4 mg. - No low level exercise was performed. - Resting heart rate was 76 bpm, peak heart rate was 103 bpm. - Resting blood pressure was 126/78 mmHg; peak blood pressure was 167/80mmHg. - Patient did not develop significant symptoms. FINDINGS Imaging - The overall quality of the study was excellent with mild soft tissue attenuation on rest and stress studies. - SPECT perfusion images were normal without evidence of ischemia orinfarction. - Post stress gated imaging revealed normal left ventricular size with a visually estimated LVEF of 75%. (Lab normals: LVEF >50%, LV Size <150ml). - There was normal post-stress myocardial thickening and wall motion. - The right ventricle was not visualized. - There was no evidence of abnormal lung or extracardiac activity. - Risk/extent of ischemia per ACC Noninvasive Risk StratificationGuideline: LOW RISK. This study was interpreted and electronically signed by Neeta Solis MD on 10/20/2023 2:54:26 PM. Final (Updated) Lindsay Strickland MD NM * SCAN CORRESP-LABORATORY RESULTS (10/15/2023 12:00 AM SECOND CRUSHER) Scanner OTHER * ECHO TTE COMPLETE WO CONTRAST (09/14/2023 5:19 PM SECOND CRUSHER) AORTIC VALVE MEAN PG 5 mmHg EJECTION FRACTION 66 % PEAK TR VELOCITY 2.6 m/s LVEDD 5.1 cm MITRAL VALVE MR ERO 12 mm2 Anatomical Region Laterality Modality Ultrasound 09/14/2023 4:12 PM SECOND CRUSHER Narrative 09/15/2023 7:26 AM SECOND CRUSHER ECHOCARDIOGRAM QI TORRES ?Accession#: ?? [id number] : ?1945 77 years Study Date: ?? 09/14/2023 4:12:22 PM Gender: F ? BP: ? 161/79 mmHg Height: 165.00 cm ? BSA: ?2.12 m? ? ? Weight: 107.00 kg ? Tech: ? MJS ?Referring MD: WIN PATEL Site: ? [facility] Reading Location: [facility] Patient Location: Outpatient. Procedure: 2D, Color Doppler and Spectral Doppler. Indication for study: Elevated Troponin Cardiac Rhythm: Normal sinus.Study quality: Good. Final Impressions: 1. Normal left ventricular size, normal wall thickness, normal global systolic function, calculated EF of 66 %. 2. No regional wall motion abnormalities appreciated. 3. Right ventricular cavity size is normal, global systolic RV function is normal. 4. The aortic valve is trileaflet and sclerotic, no stenosis and no regurgitation. 5. The mitral valve is normal, mild to moderate mitral regurgitation. 6. Trace tricuspid regurgitation with an estimated RVSP of 28 mmHg plus the RA pressure. 7. IVC geometry compatible with a normal estimated RA pressure (3 mmHg). Comparison Compared to prior exam of 04/03/21 (limited baseline TTE for stress echo), there has been no significant change. Chamber Sizes and Function Normal left ventricular size, normal wall thickness, normal global systolic function, calculated EF of 66 %. Left atrial size is normal. Right ventricular cavity size is normal, global systolic RV function is normal. The right atrium is normal. Right atrial area is 17 cm? ? ?. The pulmonary artery is of normal size and origin. The sinus of Valsalva is normal sized. The ascending aorta is normal sized. Valves, RV Pressures and Diastolic Function The aortic valve is trileaflet and sclerotic, no stenosis and no regurgitation. The mitral valve is normal in structure, mild to moderate mitral regurgitation. Normal diastolic function. The tricuspid valve is normal in structure. Tricuspid regurgitation is trace regurgitation. The tricuspid regurgitant velocity is 2.6 m/s, the estimated right ventricular systolic pressure is 28 mmHg plus right atrial pressure. The pulmonic valve is normal. No pulmonary regurgitation. TTE images do not appear adequate for transcather intervention with patient supine. Masses, Effusion, Shunts There is no pericardial effusion. The inferior vena cava is normal sized, respiratory size variation greater than 50%. No left to right shunting was detected by limited color flow Doppler interrogation of the interatrial septum. MEASUREMENTS AND CALCULATIONS 2-D Measurements and LV Function: LVID (d) 5.1 cm Planimetered EF 66 % LVID (s) 3.4 cm LV FS% (2D) ? 34 % IVS (d) ??1.1 cm LVOT diameter ?? 2.0 cm LVPW (d) 1.1 cm HR ?67 bpm Ao Sinus 3.1 cm LA Vol index ?27 ml/m2 Asc Ao ?? 3.2 cm RA area ? 17 cm? ? ? LA ? 4.0 cm RV Max 4C (d) ?? 3.4 cm Diastology: Mitral ?Tissue Doppler E Peak 1.2 m/s ??e', Septum ? 0.10 m/s A Peak 1.0 m/s ??e', Lateral ?0.12 m/s E/A ?1.2 ?E/e' Average ?? 10.36 DT ? 243 msec Aortic Valve: Vmax ? 1.6 m/s ??CLIFF (V) ?? 2.23 cm? ? ? VTI ?0.36 m ?? CLIFF (I) ?? 2.39 cm? ? ? LVOT V max 1.1 m/s ??Max PG ?10 mmHg LVOT VTI ?? 0.27 m ?? Mean PG ?? 5 mmHg SV ? 87 ml ?Dim Index 0.74 SV index ?? 41 ml/m? ? ? CO ?5.8 l/min ?CI ?2.8 l/min/m? ? ? Mitral Valve: MVA ?3.1 cm? ? ? MR ERO ??0.12 cm? ? ? MV P 1/2 70 msec MR Vol. 24 ml ? MR TVI ??2.00 m Tricuspid Valve and estimated PA pressures: TR Vmax 2.6 m/s TAPSE 2.3 cm TR maxG 28 mmHg . This study was interpreted by an [facility] accredited facility. CC: HIM (med records) [facility], Med/Surg - IP [facility]. ??Final ?? Procedure Note Miguel Moise MD - 09/15/2023 ECHOCARDIOGRAM QI TORRES : 1945 77 years Study Date: 09/14/2023 4:12:22 PM Gender: F BP: 161/79 mmHg Height: 165.00 cm BSA: 2.12 m? ? ? Weight: 107.00 kg Tech: ARISTIDES Referring MD: WIN PATEL Site: [facility] Reading Location: [facility] Patient Location: Outpatient. Procedure: 2D, Color Doppler and Spectral Doppler. Indication for study: Elevated Troponin Cardiac Rhythm: Normal sinus.Study quality: Good. Final Impressions: 1. Normal left ventricular size, normal wall thickness, normal globalsystolic function, calculated EF of 66 %. 2. No regional wall motion abnormalities appreciated. 3. Right ventricular cavity size is normal, global systolic RV functionis normal. 4. The aortic valve is trileaflet and sclerotic, no stenosis and noregurgitation. 5. The mitral valve is normal, mild to moderate mitral regurgitation. 6. Trace tricuspid regurgitation with an estimated RVSP of 28 mmHg plusthe RA pressure. 7. IVC geometry compatible with a normal estimated RA pressure (3mmHg). Comparison Compared to prior exam of 04/03/21 (limited baseline TTE for stress echo),there has been no significant change. Chamber Sizes and Function Normal left ventricular size, normal wall thickness, normal globalsystolic function, calculated EF of 66 %. Left atrial size is normal.Right ventricular cavity size is normal, global systolic RV function isnormal. The right atrium is normal. Right atrial area is 17 cm? ? ?. Thepulmonary artery is of normal size and origin. The sinus of Valsalva isnormal sized. The ascending aorta is normal sized. Valves, RV Pressures and Diastolic Function The aortic valve is trileaflet and sclerotic, no stenosis and noregurgitation. The mitral valve is normal in structure, mild to moderatemitral regurgitation. Normal diastolic function. The tricuspid valve isnormal in structure. Tricuspid regurgitation is trace regurgitation. Thetricuspid regurgitant velocity is 2.6 m/s, the estimated right ventricularsystolic pressure is 28 mmHg plus right atrial pressure. The pulmonicvalve is normal. No pulmonary regurgitation. TTE images do not appearadequate for transcather intervention with patient supine. Masses, Effusion, Shunts There is no pericardial effusion. The inferior vena cava is normal sized,respiratory size variation greater than 50%. No left to right shunting wasdetected by limited color flow Doppler interrogation of the interatrialseptum. MEASUREMENTS AND CALCULATIONS 2-D Measurements and LV Function: LVID (d) 5.1 cm Planimetered EF 66 % LVID (s) 3.4 cm LV FS% (2D) 34 % IVS (d) 1.1 cm LVOT diameter 2.0 cm LVPW (d) 1.1 cm HR 67 bpm Ao Sinus 3.1 cm LA Vol index 27 ml/m2 Asc Ao 3.2 cm RA area 17 cm? ? ? LA 4.0 cm RV Max 4C (d) 3.4 cm Diastology: Mitral Tissue Doppler E Peak 1.2 m/s e', Septum 0.10 m/s A Peak 1.0 m/s e', Lateral 0.12 m/s E/A 1.2 E/e' Average 10.36 DT 243 msec Aortic Valve: Vmax 1.6 m/s CLIFF (V) 2.23 cm? ? ? VTI 0.36 m CLIFF (I) 2.39 cm? ? ? LVOT V max 1.1 m/s Max PG 10 mmHg LVOT VTI 0.27 m Mean PG 5 mmHg SV 87 ml Dim Index 0.74 SV index 41 ml/m? ? ? CO 5.8 l/min CI 2.8 l/min/m? ? ? Mitral Valve: MVA 3.1 cm? ? ? MR ERO 0.12 cm? ? ? MV P 1/2 70 msec MR Vol. 24 ml MR TVI 2.00 m Tricuspid Valve and estimated PA pressures: TR Vmax 2.6 m/s TAPSE 2.3 cm TR maxG 28 mmHg . This study was interpreted by an [facility] accredited facility. CC: HIM (med records) [facility], Med/Surg - IP [facility]. Final Win Patel MD ECHO ORD from Last 3 Months Advance Directives Documents on File Type Date Recorded Patient Shutdown Planner Expl anation Healthcare Directive 05/22/2009 Latest Code Status on File Code Status Date Activated Date Inactivated Comments DNR 12/16/2022 3:19 AM 12/17/2022 3:48 PM Question Answer Comments Code Status Discussion: Reviewed Preferences Code Status History Code Status Date Activated Date Inactivated Comments Full Code 12/15/2022 9:55 PM 12/16/2022 3:19 AM Question Answer Comments Code Status Discussion: Reviewed Preferences Care Teams Clinical Psychologist Licensed Relationship Specialty Start Date End Date Kecia Toscano MD [address] [place] [address] PCP - General Family Practice 05/25/23 [facility] [address] [place] [address] Cardiovascular Disease 12/01/16
== END 2023-12-07 07:32 | disposition home or self-care (01) ==
LOC: NFLDREF 11:26
PROVIDERS: PCP Family Medicine; Referring Provider Family Medicine; Visit Provider Family Medicine
DX: E78.5 Hyperlipidemia, unspecified (principal); I10 Essential (primary) hypertension; D64.9 Anemia, unspecified; Z13.21 Encounter for screening for nutritional disorder
CPT/HCPCS: 80053; 80061; 82607; 82728; 83540; 83550

== ENCOUNTER 2024-02-24 08:01 | Outpatient (CLI) | payer MEDICARE, OTHER, SELFPAY ==
--- OUTSIDE RECORDS SUMMARY | 2024-02-24 08:04 | XMS_ITS | Clinical Summary ---
Author Name Unknown Organization [facility] Address [place], [place] [address] Care Team Providers Care Cargo Mate Name Role Phone [facility] Kecia Toscano MD Primary Care [...] intervertebr al disc, site unspecified 03/30/2007 12/11/2021 Immunizations Name Administration Dates Next Due AMB INFLUENZA, IIV4 (AGE=>6M OS) MDV (Flu Clinic Only) 07/25/2019 COVID-19 vaccine ([employer]-Bio NTech 30mcg/0.3mL) 12YO+ BIVALENT PF, MDV 07/14/2022 COVID-19 vaccine (Pfizer-Bio NTech 30mcg/0.3mL) PF, MDV 02/19/2022,08/04/2021,12/19/2020,2020 Hepatitis B (Adult) 03/28/1999,11/08/1998,1997 Influenza, High-dose [...] T Respiratory Rate 18 12/17/2022 7:50 AM SENIOR C SOFTWARE DEVELOPER Oxygen Saturation 95% 05/28/2023 2:52 PM CDT Inhaled Oxygen Concentration - - Weight 105.7 kg (233 lb 1.6 oz) 05/28/2023 2:52 PM CDT Height 165.1 cm (5' 5) 12/19/2021 1:36 PM SENIOR C SOFTWARE DEVELOPER Body Mass Index 38.79 12/19/2021 1:36 PM SENIOR C SOFTWARE DEVELOPER Plan of Treatment Health Maintenance Due Date [...] Additional history exists Influenza for age 65+ 06/19/2024 07/14/2022 , 06/23/2021, 06/28/2020, Additional history exists [...] Procedure Name Priority Date/Time Associated Diagnosis Comments OCCULT BLOOD IFOBT STOOL Routine 06/28/2020 10:59 AM CDT Screening for colon cancer ANTI HCV Routine 11/26/2015 9:04 AM SENIOR C SOFTWARE DEVELOPER Need for hepatitis C screening test XR DXA BONE DENSITY 2 SITES AXIAL Routine 10/28/2011 1:23 PM SENIOR C SOFTWARE DEVELOPER Post-menopausal from Last 3 Months or Most Recently Relevant to Health Maintenance Results * OCCULT BLOOD IFOBT STOOL (06/28/2020 10:59 AM CDT) STOOL BLOOD ,IFOBT Negative Negative 06/28/2020 11:19 AM CDT [facility] Stool STOOL SPECIMEN / Unknown Non-Blood / Unknown 06/28/2020 10:59 AM CDT 06/28/2020 10:59 AM CDT Yanni Headley MD LABORATORY [address] [address] * ANTI HCV [52579.2] (11/26/2015 9:04 AM SENIOR C SOFTWARE DEVELOPER) HEPATITIS C ANTIBODY Non-Reacti ve Non-Reacti ve 11/26/2015 4:22 PM SENIOR C SOFTWARE DEVELOPER [facility] Blood specimen (specimen) BLOOD SPECIMEN / Unknown Venipuncture / Unknown 11/26/2015 9:04 AM SENIOR C SOFTWARE DEVELOPER 11/26/2015 9:04 AM SENIOR C SOFTWARE DEVELOPER Narrative [facility]-C[facility]AL LAB[facility] - 11/26/2015 4:22 PM SENIOR C SOFTWARE DEVELOPER Antibodies to HCV not detected; does not exclude the possibility of exposure to HCV. Hay Reddy MD SEND OUTS [facility] [address] [place] [address], [place] * XR DEXA BONE DENSITY 2 SITES (10/28/2011 1:23 PM SENIOR C SOFTWARE DEVELOPER) Anatomical Region Laterality Modality Spine, HIPS, HIPL, HIPR Bone Den sitometry Narrative 10/30/2011 8:30 PM SENIOR C SOFTWARE DEVELOPER Please see scanned document for results of this study. Procedure Note Rajni Burch MD - 10/30/2011 Please see scanned document for results of this study. Hay Reddy MD DEXA from Last 3 Months or Most Recently Relevant to Health Maintenance Advance Directives Documents on File Type Date Recorded Patient Study Manager Expl anation Healthcare Directive 05/22/2009 * DNR (Latest Code Status on File) Date Activated Date Inactivated Comments 12/16/2022 3:19 AM 12/17/2022 3:48 PM Question Answer Comments Code Status Discussion: Reviewed Preferences * Full Code Date Activated Date Inactivated Comments 12/15/2022 9:55 PM 12/16/2022 3:19 AM Question Answer Comments Code Status Discussion: Reviewed Preferences Care Teams Cargo Mate Relationship Specialty Start Date End Date Kceia Toscano MD [address] [place] [address] PCP - General Family Practice 05/25/23 [facility] [address] [place] [address] [place] [address] Cardiovascular Disease 12/01/16
--- NOTE | 2024-02-24 08:15 | MM_ITS ---
Patient: DIONTE TORRES Facility:?[facility] Patient ID:?[id number] Site Patient ID:?[id number]. Site :?[id number] Study:?XRay-Breast Bilateral 3D W/CAD-02/24/2024 8:29:44 AM Ordering Physician:?Kecia Toscano Final Report: BILATERAL SCREENING MAMMOGRAM WITH COMPUTER-AIDED DETECTION AND TOMOSYNTHESIS TECHNIQUE: CC and MLO views were obtained. These mammographic images have been obtained using full-field digital technique. These mammographic images were interpreted with the benefit of computer-aided detection. Breast Tomosynthesis was used in this interpretation. COMPARISON FILM: 02/19/23, 12/13/21, 12/10/20. FINDINGS: There are scattered areas of fibroglandular density. IMPRESSION: There is no radiographic evidence for malignancy. ASSESSMENT: BI-RADS Category 1: Negative RECOMMENDATION: Routine screening mammogram in 1 year. A lay language report of this examination will be provided to the patient. Luis Eduardo Fairbanks M.D. Diagnostic Radiologist [email or web address] DSM/sp R& Transcribed: 3:10 p.m. SP/Dictated by: Luis Eduardo Fairbanks MD @ 02/29/2024 1:14:00 PM Signed by:?Luis Eduardo Fairbanks MD @02/29/2024 4:00:43 PM (Electronic Signature)
== END 2024-02-24 08:02 | disposition home or self-care (01) ==
LOC: MAMMO 08:02
PROVIDERS: PCP Family Medicine; Visit Provider Family Medicine
DX: Z12.31 Encounter for screening mammogram for malignant neoplasm of breast (principal)
CPT/HCPCS: 77063; 77067

== ENCOUNTER 2024-04-06 13:58 | Outpatient (CLI) | payer MEDICARE, OTHER, SELFPAY ==
--- OUTSIDE RECORDS SUMMARY | 2024-04-13 14:05 | XMS_ITS | Clinical Summary ---
Author Organization [employer] [facility] Address [place], [place] [address] Care Team Providers Care Teleradiologist Name Role Phone [facility] Kecia Toscano MD Primary [...] Encounters Date Type Department Care Team Description 04/11/2024 Lab Requisition [facility] CENTRAL LAB [phone] Kerri Sheppard MD from Last 3 Months Immunizations Name Administration Dates Next Due AMB INFLUENZA, IIV4 (AGE=>6M OS) MDV (Flu Clinic Only) 07/25/2019 COVID-19 vaccine (Pfizer-Bio NTech 30mcg/0.3mL) 12YO+ BIVALENT PF, MDV 07/14/2022 [...] Outcome GA Total Labor Labor/2nd/3rd Weight Sex Type Anes PTL Shilpa A1 A5 Name Clin SAB Para Para Para Last Filed Vital Signs Vital Sign Reading Time Taken Comments Blood Pressure 112/72 05/28/2023 2:52 PM CDT Pulse 63 05/28/2023 2:52 PM CDT Temperature 36.7 ??C (98.1 ??F) 12/17/2022 7:50 AM CS T Respiratory Rate 18 12/17/2022 7:50 AM GOLF TECHNICIAN Oxygen Saturation 95% 05/28/2023 2:52 PM CDT Inhaled Oxygen Concentration - - Weight 105.7 kg (233 lb 1.6 oz) 05/28/2023 2:52 PM CDT Height 165.1 cm (5' 5) 12/19/2021 1:36 PM GOLF TECHNICIAN Body Mass Index 38.79 12/19/2021 1:36 PM GOLF TECHNICIAN Plan of Treatment Health Maintenance Due Date [...] Procedure Name Priority Date/Time Associated Diagnosis Comments PATH TISSUE EXAM Routine 04/08/2024 12:0 0 PM CDT OCCULT BLOOD IFOBT STOOL Routine 06/28/2020 10:59 AM CDT Screening for colon cancer ANTI HCV Routine 11/26/2015 9:04 AM GOLF TECHNICIAN Need for hepatitis C screening test XR DXA BONE DENSITY 2 SITES AXIAL Routine 10/28/2011 1:23 PM GOLF TECHNICIAN Post-menopausal from Last 3 Months or Most Recently Relevant to Health Maintenance Results * PATH TISSUE EXAM (04/08/2024 12:00 PM CDT) Case Report Pathology Report ?Case: [id number] ? Authorizing Provider: ??Kerri Sheppard MD ?? Collected: ? 04/08/2024 1200 ? Ordering Location: ? [facility] ?Received: ?04/11/2024 1810 ? Pathologist: ? Jay Valenzuela MD ? Specimen: ?Vulvar Biopsy ? 04/12/2024 1:04 PM CDT [facility] Final Diagnosis A) VULVA, BIOPSY: 1. Benign atrophic squamous mucosa with focal mild non-specific chronic inflammation 2. Negative for dysplasia and malignancy 04/12/2024 1:04 PM CDT [facility] Comment The findings are mild and non-specific. Clinical correlation is recommended to address whether the area of interest has been sufficiently sampled to ensure that the maximum pathologic findings have been determined. 04/12/2024 1:04 PM CDT [facility] ENTRAL LABORATORY Clinical Information Vulvitis. Physical exam shows labia minora and major with slight erythema, perineum diffusely whitened, anus with a patch of thickened whitened skin 04/12/2024 1:04 PM CDT [facility] ENTRAL LABORAT[facility] Gross Description A) Received in formalin, labeled with the patient's name and date of , is a single diallo tissue fragment measuring 0.3 x 0.2 cm. The specimen is submitted in toto in one cassette. EVM 04/11/2024 04/12/2024 1:04 PM CDT [facility]- ENTRAL LABORATORY Microscopic Description The final diagnosis is based on microscopic examination of appropriate sections of all specimens. 04/12/2024 1:04 PM CDT [facility]- ENTRME LABORATORY Additional Information Interpreted at [facility], Central Laboratory - [address] [place] [id number] 04/12/2024 1:04 PM CDT [facility] ENTRME LABORATORY Other (Vulvar Biopsy) 04/08/2024 12:00 PM CDT 04/11/2024 6:10 PM CDT Kerri Sheppard MD PATHOLOGY/CYTOLOG Y [facility]-CENTRAL LABORATORY [address] [place] [address], * OCCULT BLOOD IFOBT STOOL (06/28/2020 10:59 AM CDT) STOOL BLOOD ,IFOBT Negative Negative 06/28/2020 11:19 AM CDT [facility] Stool STOOL SPECIMEN / Unknown Non-Blood / Unknown 06/28/2020 10:59 AM CDT 06/28/2020 10:59 AM CDT Yanni Headley MD LABORATORY Performing Organization Address City/[facility]/ZIP Co de Phone Number [facility] [address] [place] [address] * ANTI HCV [78432.2] (11/26/2015 9:04 AM GOLF TECHNICIAN) HEPATITIS C ANTIBODY Non-Reacti ve Non-Reacti ve 11/26/2015 4:22 PM GOLF TECHNICIAN [facility] Blood specimen (specimen) BLOOD SPECIMEN / Unknown Venipuncture / Unknown 11/26/2015 9:04 AM GOLF TECHNICIAN 11/26/2015 9:04 AM GOLF TECHNICIAN Narrative [facility]-CENTRAL LABORATORY - 11/26/2015 4:22 PM GOLF TECHNICIAN Antibodies to HCV not detected; does not exclude the possibility of exposure to HCV. Hay Reddy MD SEND OUTS [facility]-CENTRAL LABORATORY [address] [place] [address], [place] * XR DEXA BONE DENSITY 2 SITES (10/28/2011 1:23 PM GOLF TECHNICIAN) Anatomical Region Laterality Modality Spine, HIPS, HIPL, HIPR Bone Den sitometry Narrative 10/30/2011 8:30 PM GOLF TECHNICIAN Please see scanned document for results of this study. Procedure Note Rajni Burch MD - 10/30/2011 Please see scanned document for results of this study. Hay Reddy MD DEXA from Last 3 Months or Most Recently Relevant to Health Maintenance Advance Directives Documents on File Type Date Recorded Patient Hand Plug Shaper Expl anation Healthcare Directive 05/22/2009 * DNR (Latest Code Status on File) Date Activated Date Inactivated Comments 12/16/2022 3:19 AM 12/17/2022 3:48 PM Question Answer Comments Code Status Discussion: Reviewed Preferences * Full Code Date Activated Date Inactivated Comments 12/15/2022 9:55 PM 12/16/2022 3:19 AM Question Answer Comments Code Status Discussion: Reviewed Preferences Care Teams Teleradiologist Relationship Specialty Start Date End Date Kecia Toscano MD [address] [place] [address] PCP - General Family Practice 05/25/23 [facility] [address] [place] [address] Cardiovascular Disease 12/01/16
== END 2024-04-06 13:59 | disposition home or self-care (01) ==
LOC: NFLDREF 04-13 14:03
PROVIDERS: PCP Family Medicine; Referring Provider Family Medicine; Visit Provider Nurse Practitioner Family
DX: R30.0 Dysuria (principal); N30.00 Acute cystitis without hematuria; N89.8 Other specified noninflammatory disorders of vagina
CPT/HCPCS: 87086; 87186

== ENCOUNTER 2024-06-06 07:49 | Outpatient (CLI) | payer MEDICARE, OTHER, SELFPAY ==
--- OUTSIDE RECORDS SUMMARY | 2024-06-06 14:57 | XMS_ITS | Clinical Summary ---
Author Organization [employer] [facility] Address [place], [place] [address] Care Team Providers Care Autoglazier Name Role Phone [facility] Kecia Toscano MD Primary [...] Encounters Date Type Department Care Team Description 04/28/2024 8:30 AM CDT Office Visit [facility] [address] [place] [address] Vitkor Lopez MD 04/11/2024 Lab Requisition [facility] CENTRAL LAB [phone] Kerri Sheppard MD from Last 3 Months [...] T Respiratory Rate 18 12/17/2022 7:50 AM CHICKEN AND FISH CLEANER Oxygen Saturation 95% 05/28/2023 2:52 PM CDT Inhaled Oxygen Concentration - - Weight 105.7 kg (233 lb 1.6 oz) 05/28/2023 2:52 PM CDT Height 165.1 cm (5' 5) 12/19/2021 1:36 PM CHICKEN AND FISH CLEANER Body Mass Index 38.79 12/19/2021 1:36 PM CHICKEN AND FISH CLEANER Plan of Treatment Health Maintenance Due Date [...] history exists COVID-19 vaccine series ( season) 2024 12/09/2023, 07/14/2022, 02/19/2022, Additional history exists Influenza for age [...] Procedure Name Priority Date/Time Associated Diagnosis Comments LAB TRACKING EVENT Routine 04/08/2024 12 :00 PM CDT PATH TISSUE EXAM Routine 04/08/2024 12:0 0 PM CDT OCCULT BLOOD IFOBT STOOL Routine 06/28/2020 10:59 AM CDT Screening for colon cancer ANTI HCV Routine 11/26/2015 9:04 AM CHICKEN AND FISH CLEANER Need for hepatitis C screening test XR DXA BONE DENSITY 2 SITES AXIAL Routine 10/28/2011 1:23 PM CHICKEN AND FISH CLEANER Post-menopausal from Last 3 Months or Most Recently Relevant to Health Maintenance Results * LAB TRACKING EVENT (04/08/2024 12:00 PM CDT) Other (Other) Client Collect / Unknown 04/08/2024 12:00 PM CDT 04/11/2024 2:58 PM CDT Kerri Sheppard MD LAB BILL ONLY [facility]-C[facility]AL LABORATORY [address] [place] [address], * PATH TISSUE EXAM (04/08/2024 12:00 PM CDT) Case Report Pathology Report ?Case: [id number] ? Authorizing Provider: ??Kerri Sheppard MD ?? Collected: ? 04/08/2024 1200 ? Ordering Location: ? [facility]AL LAB ?Received: ?04/11/2024 1810 ? Pathologist: ? Jay Valenzuela MD ? Specimen: ?Vulvar Biopsy ? 04/12/2024 1:04 PM CDT [facility] Final Diagnosis A) VULVA, BIOPSY: 1. Benign atrophic squamous mucosa with focal mild non-specific chronic inflammation 2. Negative for dysplasia and malignancy 04/12/2024 1:04 PM CDT [facility] Comment The findings are mild and non-specific. Clinical correlation is recommended to address whether the area of interest has been sufficiently sampled to ensure that the maximum pathologic findings have been determined. 04/12/2024 1:04 PM CDT [facility] Clinical Information Vulvitis. Physical exam shows labia minora and major with slight erythema, perineum diffusely whitened, anus with a patch of thickened whitened skin 04/12/2024 1:04 PM CDT [facility] Gross Description A) Received in formalin, labeled with the patient's name and date of , is a single diallo tissue fragment measuring 0.3 x 0.2 cm. The specimen is submitted in toto in one cassette. EVM 04/11/2024 04/12/2024 1:04 PM CDT [facility] Microscopic Description The final diagnosis is based on microscopic examination of appropriate sections of all specimens. 04/12/2024 1:04 PM CDT [facility] Additional Information Interpreted at [facility] - [address], [place] [address] 04/12/2024 1:04 PM CDT [facility] Other (Vulvar Biopsy) 04/08/2024 12:00 PM CDT 04/11/2024 6:10 PM CDT Kerri Sheppard MD PATHOLOGY/CYTOLOG Y [facility]ORAT[facility]-CENTRAL LABORATORY [address] [place] [address], [place] * OCCULT BLOOD IFOBT STOOL (06/28/2020 10:59 AM CDT) STOOL BLOOD ,IFOBT Negative Negative 06/28/2020 11:19 AM CDT [facility] Stool STOOL SPECIMEN / Unknown Non-Blood / Unknown 06/28/2020 10:59 AM CDT 06/28/2020 10:59 AM CDT Yanni Headley MD LABORATORY Performing Organization Address City/[facility]/ZIP Co de Phone Number [facility] [address] [place] [address] * ANTI HCV [67631.2] (11/26/2015 9:04 AM CHICKEN AND FISH CLEANER) HEPATITIS C ANTIBODY Non-Reacti ve Non-Reacti ve 11/26/2015 4:22 PM CHICKEN AND FISH CLEANER [facility] TRAL LABORATORY Blood specimen (specimen) BLOOD SPECIMEN / Unknown Venipuncture / Unknown 11/26/2015 9:04 AM CHICKEN AND FISH CLEANER 11/26/2015 9:04 AM CHICKEN AND FISH CLEANER Narrative [facility] LABOR[facility] - 11/26/2015 4:22 PM CHICKEN AND FISH CLEANER Antibodies to HCV not detected; does not exclude the possibility of exposure to HCV. Hay Reddy MD SEND OUTS Performing Organization Address City/[facility]/ZIP Co de Phone Number [facility] [address] [place] [address], [place] * XR DEXA BONE DENSITY 2 SITES (10/28/2011 1:23 PM CHICKEN AND FISH CLEANER) Anatomical Region Laterality Modality Spine, HIPS, HIPL, HIPR Bone Den sitometry Narrative 10/30/2011 8:30 PM CHICKEN AND FISH CLEANER Please see scanned document for results of this study. Procedure Note Rajni Burch MD - 10/30/2011 Please see scanned document for results of this study. Hay Reddy MD DEXA from Last 3 Months or Most Recently Relevant to Health Maintenance Advance Directives Documents on File Type Date Recorded Patient Calibration Specialist Expl anation Healthcare Directive 05/22/2009 * DNR (Latest Code Status on File) Date Activated Date Inactivated Comments 12/16/2022 3:19 AM 12/17/2022 3:48 PM Question Answer Comments Code Status Discussion: Reviewed Preferences * Full Code Date Activated Date Inactivated Comments 12/15/2022 9:55 PM 12/16/2022 3:19 AM Question Answer Comments Code Status Discussion: Reviewed Preferences Care Teams Autoglazier Relationship Specialty Start Date End Date Kecia Toscano MD [address] [place] [address] PCP - General Family Practice 05/25/23 [facility] [address] [place] [address] Cardiovascular Disease 12/01/16
== END 2024-06-06 07:50 | disposition home or self-care (01) ==
LOC: NFLDREF 14:55
PROVIDERS: PCP Family Medicine; Referring Provider Family Medicine; Visit Provider Family Medicine
DX: D64.9 Anemia, unspecified (principal); E78.5 Hyperlipidemia, unspecified; I10 Essential (primary) hypertension
CPT/HCPCS: 80053; 82728; 83695

== ENCOUNTER 2024-06-27 09:25 | Outpatient (CLI) | payer MEDICARE, OTHER, SELFPAY ==
--- OUTSIDE RECORDS SUMMARY | 2024-06-27 09:27 | XMS_ITS | Clinical Summary ---
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 Venous insufficiency 12/13/2018 Hypertension 06/11/2018 Other and unspecified hyperlipidemia 03/30/2007 Esophageal reflux Resolved Problems Problem Noted Date Diagnosed Date Resolved Date Paroxysmal SVT (supraventricular tachycardia) 06/11/20 18 12/15/2022 Other acute pulmonary emboli sm without acute cor pulmonale 09/30/2017 06/11/2018 Anticoagulation monitoring, INR range 2-3 09/30/2017 06/11/2018 Overview (12/11/2017): INITIAL INR 09/30/17, with Education planned for 10/02/17. Plan for 3 months of anticoagulation and then stop coumadin with coagulopathy work up. Acute deep vein thrombosis ( DVT) of proximal vein of left lower extremity 09/28/2017 04/25/2020 Overview (01/25/2018): two previous provoked DVT: and following ankle injury. Brother with Factor 5 Leiden Negative work-up: coumadin stopped. Degenerative arthritis of ankle 09/21/2007 12/15/2022 Fracture, fibula, with tibia 09/21/2007 12/13/2018 Degeneration of intervertebr al disc, site unspecified 03/30/2007 12/11/2021 Encounters Date Type Department Care Team Description 04/28/2024 8:30 AM CDT Office Visit [facility] [address] [place] [address] Viktor Lopez MD 04/11/2024 Lab Requisition [facility] [phone] Kerri Sheppard MD from Last 3 Months [...] T Respiratory Rate 18 12/17/2022 7:50 AM LAY OUT MACHINE OPERATOR Oxygen Saturation 95% 05/28/2023 2:52 PM CDT Inhaled Oxygen Concentration - - Weight 105.7 kg (233 lb 1.6 oz) 05/28/2023 2:52 PM CDT Height 165.1 cm (5' 5) 12/19/2021 1:36 PM LAY OUT MACHINE OPERATOR Body Mass Index 38.79 12/19/2021 1:36 PM LAY OUT MACHINE OPERATOR Plan of Treatment Health Maintenance Due Date Last Done Comments RSV vaccine for adults or (1 - 1-dose 60+ series) 2004 Zoster (shingles) series for age 50+ (2 [...] cancer ANTI HCV Routine 11/26/2015 9:04 AM LAY OUT MACHINE OPERATOR Need for hepatitis C screening test XR DXA BONE DENSITY 2 SITES AXIAL Routine 10/28/2011 1:23 PM LAY OUT MACHINE OPERATOR Post-menopausal from Last 3 Months or Most Recently Relevant to Health Maintenance Results * LAB TRACKING EVENT (04/08/2024 12:00 PM CDT) Other (Other) Client Collect / Unknown 04/08/2024 12:00 PM CDT 04/11/2024 2:58 PM CDT Kerri Sheppard MD LAB BILL ONLY [facility] [address] [place] [address], * PATH TISSUE EXAM (04/08/2024 12:00 PM CDT) Case Report Pathology Report ?Case: [id number] ? Authorizing Provider: ??Kerri Sheppard MD ?? Collected: ? 04/08/2024 1200 ? Ordering Location: ? [facility] ?Received: ?04/11/2024 1810 ? Pathologist: ? Jay Valenzuela MD ? Specimen: ?Vulvar Biopsy ? 04/12/2024 1:04 PM CDT [facility] Final Diagnosis A) VULVA, BIOPSY: 1. Benign atrophic squamous mucosa with focal mild non-specific chronic inflammation 2. Negative for dysplasia and malignancy 04/12/2024 1:04 PM T [facility] Comment The findings are mild and non-specific. Clinical correlation is recommended to address whether the area of interest has been sufficiently sampled to ensure that the maximum pathologic findings have been determined. 04/12/2024 1:04 PM T [facility] Clinical Information Vulvitis. Physical exam shows labia minora and major with slight erythema, perineum diffusely whitened, anus with a patch of thickened whitened skin 04/12/2024 1:04 PM CDT [facility] Gross Description A) Received in formalin, labeled with the patient's name and date of , is a single diallo tissue fragment measuring 0.3 x 0.2 cm. The specimen is submitted in toto in one cassette. EVM 04/11/2024 04/12/2024 1:04 PM T [facility] Microscopic Description The final diagnosis is based on microscopic examination of appropriate sections of all specimens. 04/12/2024 1:04 PM T [facility] Additional Information Interpreted at [facility] - [address], [place] [address] 04/12/2024 1:04 PM [facility] Other (Vulvar Biopsy) 04/08/2024 12:00 PM CDT 04/11/2024 6:10 PM CDT Kerri Sheppard MD PATHOLOGY/CYTOLOG Y [facility] [address] [place] [address], [place] * OCCULT BLOOD IFOBT STOOL (06/28/2020 10:59 AM CDT) STOOL BLOOD ,IFOBT Negative Negative 06/28/2020 11:19 AM CDT [facility] Stool STOOL SPECIMEN / Unknown Non-Blood / Unknown 06/28/2020 10:59 AM CDT 06/28/2020 10:59 AM CDT Yanni Headley MD LABORATORY Performing Organization Address [facility] Co de Phone Number [facility] [address] [place] [address] * ANTI HCV [04713.2] (11/26/2015 9:04 AM LAY OUT MACHINE OPERATOR) HEPATITIS C ANTIBODY Non-Reacti ve Non-Reacti ve 11/26/2015 4:22 PM LAY OUT MACHINE OPERATOR [facility] Blood specimen (specimen) BLOOD SPECIMEN / Unknown Venipuncture / Unknown 11/26/2015 9:04 AM LAY OUT MACHINE OPERATOR 11/26/2015 9:04 AM LAY OUT MACHINE OPERATOR Narrative [facility] - 11/26/2015 4:22 PM LAY OUT MACHINE OPERATOR Antibodies to HCV not detected; does not exclude the possibility of exposure to HCV. Hay Reddy MD SEND OUTS Performing Organization Address City/[facility]/ZIP Co de Phone Number [facility] [address] [place] [address], [place] * XR DEXA BONE DENSITY 2 SITES (10/28/2011 1:23 PM LAY OUT MACHINE OPERATOR) Anatomical Region Laterality Modality Spine, HIPS, HIPL, HIPR Bone Den sitometry Narrative 10/30/2011 8:30 PM LAY OUT MACHINE OPERATOR Please see scanned document for results of this study. Procedure Note Rajni Burch MD - 10/30/2011 Please see scanned document for results of this study. Hay KNIGHT from Last 3 Months or Most Recently Relevant to Health Maintenance Advance Directives Documents on File Type Date Recorded Patient Chief Controller Station Expl anation Healthcare Directive 05/22/2009 * DNR (Latest Code Status on File) Date Activated Date Inactivated Comments 12/16/2022 3:19 AM 12/17/2022 3:48 PM Question Answer Comments Code Status Discussion: Reviewed Preferences * Full Code Date Activated Date Inactivated Comments 12/15/2022 9:55 PM 12/16/2022 3:19 AM Question Answer Comments Code Status Discussion: Reviewed Preferences Care Teams In Store Demonstrator Relationship Specialty Start Date End Date Kecia Toscano MD [address] [place] [address] PCP - General Family Practice 05/25/23 [facility] [address] [place] [address] Cardiovascular Disease 12/01/16
--- NOTE | 2024-06-27 10:42 | W.ANESCHARGE ---
Anesthesia Charges Start Date/Time Anesthesia Start Date: 06/27/24 Anesthesia Start Time: 10:13 Stop Date/Time Anesthesia Stop Date: 06/27/24 Anesthesia Stop Time: 11:09 Summary Extremes of Age - Over 70 or under 1: MDA
--- NOTE | 2024-06-27 11:14 | W.ANESCHARGE ---
Anesthesia Charges Start Date/Time Anesthesia Start Date: 06/27/24 Anesthesia Start Time: 10:13 Stop Date/Time Anesthesia Stop Date: 06/27/24 Anesthesia Stop Time: 11:09
== END 2024-06-27 09:26 | disposition home or self-care (01) ==
LOC: OP CLINIC 09:25
PROVIDERS: PCP Family Medicine; Visit Provider Surgery
DX: K44.9 Diaphragmatic hernia without obstruction or gangrene (principal)
CPT/HCPCS: 00813; 43239; 45385; 88305; 99100; J2704; J3490

== ENCOUNTER 2024-11-28 08:27 | Outpatient (CLI) | payer MEDICARE, OTHER, SELFPAY | END 2024-11-28 08:28 | disposition home or self-care (01) | LOC: NFLDREF 12-02 02:47 | PROVIDERS: PCP Family Medicine; Referring Provider Family Medicine; Visit Provider Family Medicine | DX: D50.9 Iron deficiency anemia, unspecified (principal); E78.5 Hyperlipidemia, unspecified; I10 Essential (primary) hypertension; R73.9 Hyperglycemia, unspecified; R53.83 Other fatigue; Z13.29 Encounter for screening for other suspected endocrine disorder | CPT/HCPCS: 80053; 80061; 82728; 84443 ==

== ENCOUNTER 2025-05-02 07:44 | Outpatient (CLI) | payer MEDICARE, OTHER, SELFPAY ==
--- NOTE | 2025-05-02 08:15 | CRLHL7_ITS ---
For Patients: As a result of the Century Cures Act, medical imaging exams and procedure reports are released immediately into your electronic medical record. You may view this report before your referring provider. If you have questions, please contact your health care provider. INDICATION: BILATERAL SCREENING MAMMOGRAM, ASYMPTOMATIC 79 Y/O FEMALE COMPARISON: 02/24/2024, 02/19/2023, 12/13/2021 TECHNIQUE: Digital mammogram in CC and MLO projections including computer-aided detection (CAD) and tomosynthesis. BREAST COMPOSITION: There are scattered areas of fibroglandular density. FINDINGS: No suspicious findings. ASSESSMENT: BI-RADS 2 Benign RECOMMENDATION: Annual screening mammogram. A lay language report of this examination will be provided to the patient. Dictated by: Luis Eduardo Fairbanks MD @ 05/02/2025 12:20:51 (Electronically Signed)
== END 2025-05-02 07:45 | disposition home or self-care (01) ==
LOC: MAMMO 07:44
PROVIDERS: PCP Family Medicine; Visit Provider Family Medicine
DX: Z12.31 Encounter for screening mammogram for malignant neoplasm of breast (principal)
CPT/HCPCS: 77063; 77067

== ENCOUNTER 2025-05-25 08:40 | Outpatient (CLI) | payer MEDICARE, OTHER, SELFPAY | END 2025-05-25 08:41 | disposition home or self-care (01) | LOC: NFLDREF 05-30 08:33 | PROVIDERS: PCP Family Medicine; Referring Provider Family Medicine; Visit Provider Family Medicine | DX: D64.9 Anemia, unspecified (principal); D50.9 Iron deficiency anemia, unspecified | CPT/HCPCS: 82728; 83540; 83550 ==